=== PATIENT | female | born 1970 | race Two or more races ===

== ENCOUNTER 2025-04-15 19:32 | Inpatient (IN) | payer MEDICAID, OTHER ==
[~2025-04-15] VITALS: Ht 152.4 cm; Wt 52.3 kg
--- NOTE | 2025-04-15 20:01 | ED.PDOC ---
History of Present Illness HPI Comments 54-year-old female came to ER for dizziness. She does have hypertension and vertigo. Has been experiencing nausea and dizziness entire day. Feels like vertigo but never has been this worse. Patient has not taken any meds yet regarding her dizziness. Chief Complaint: Dizziness Time Seen by MD: 20:01 Reviewed Notes: Nurses Notes Allergies: Coded Allergies: No Known Drug Allergy (Verified Allergy, Unknown, 04/15/25) Information Source: Patient, Spouse Mode of Arrival: Ambulatory Past Medical History PAST MEDICAL HISTORY: HTN Past Medical History (Other): Vertigo Surgical History: Denies all surgeries PICK OUT HAND History: Denies all PICK OUT HAND Hx Family History Family History: Reviewed,noncontributory to illness Social History Smoker: Non-Smoker Alcohol: Denies ETOH Use Drugs: Denies Drug Use Lives In: Home Constitutional: denies: chills, diaphoresis, fatigue, fever, malaise, sweats, weakness, others EENTM: denies: blurred vision, double vision, ear bleeding, ear discharge, ear drainage, ear pain, ear ringing, eye pain, eye redness, hearing loss, mouth pain, mouth swelling, nasal discharge, nose bleeding, nose congestion, nose pain, photophobia, tearing, throat pain, throat swelling, voice changes, others Cardiovascular: denies: chest pain, dizzy spells, diaphoresis, Dyspnea on exertion, edema, irregular heart beat, left arm pain, lightheadedness, palpitations, PND, syncope, others Gastrointestinal: reports: nausea; denies: abdomen distended, abdominal pain, blood streaked bowels, constipated, diarrhea, dysphagia, difficulty swallowing, hematemesis, melena, poor appetite, poor fluid intake, rectal bleeding, rectal pain, vomiting, others Genitourinary: denies: abnormal vagina bleeding, burning, dyspareunia, dysuria, flank pain, frequency, hematuria, incontinence, pain, , vagina discharge, urgency, others Neurological: reports: dizziness; denies: fainting, headache, left sided numbness, left sided weakness, numbness, paresthesia, pre-existing deficit, right sided numbness, right sided weakness, seizure, speech problems, tingling, tremors, weakness, others Musculoskeletal: denies: back pain, gout, joint pain, joint swelling, muscle pain, muscle stiffness, neck pain, others Integumetry: denies: bruises, change in color, change in hair/nails, dryness, laceration, lesions, lumps, rash, wounds, others Allergic/Immunocompromised: denies: Difficulty Healing, Frequent Infections, Hives, Itching, others Hematologic/Lymphatic: denies: anemia, blood clots, easy bleeding, easy bruising, swollen glands, others Endocrine: denies: excessive hunger, excessive sweating, excessive thirst, excessive urination, flushing, intolerance to cold, intolerance to heat, unexplained weight gain, unexplained weight loss, others Psychiatric: denies: anxiety, bipolar disorder, depression, hopeless, panic disorder, schizophrenia, sleepless, suicidal, others Physical Exam General Appearance: No Apparent Distress, Normal HEENT: Normal ENT Inspection, Pharynx Normal, TMs Normal Neck: Full Range of Motion, Non-Tender, Normal, Normal Inspection Respiratory: Chest Non-Tender, Lungs Clear, No Accessory Muscle Use, No Respiratory Distress, Normal Breath Sounds Cardiovascular: No Edema, No JVD, No Murmur, No Gallop, Normal Peripheral Pulses, Regular Rate/Rhythm Breast Exam: Deferred Gastrointestinal: No Organomegaly, Non Tender, No Pulsatile Mass, Normal Bowel Sounds, Soft Genitalia: Deferred Pelvic: Deferred Rectal: Deferred Extremities: No calf tenderness, Normal capillary refill, Normal inspection, Normal range of motion, Non-tender, No pedal edema Musculoskeletal : Apperance: Normal Neurologic: Alert, market survey representative II-XII nml as Tested, No Motor Deficits, Normal Affect, Normal Mood, No Sensory Deficits Cerebellar Function: Normal Reflexes: Normal Skin: Dry, Normal Color, Warm Lymphatic: No Adenopathy Was a procedure done? Was a procedure done?: No Differential Dx Considerations may include: Anemia, electrolyte imbalance, dehydration, vertigo benign positional vertigo, central vertigo, intracranial mass, intracranial bleed, CVA, labyrinthitis, Meniere's disease X-Ray, Labs, Meds, VS Vital Signs Date Time Temp Pulse Resp B/P (MAP) Pulse Ox O2 Delivery O2 Flow Rate FiO2 04/15/25 22:58 97.8 99 20 176/101 (126) 95 97.8 04/15/25 19:37 97.6 81 16 161/109 94 97.6 Lab Test 04/16/25 00:24 Range/Units White Blood Count 14.0 H 4.4-10.8 10^3/uL Red Blood Count 5.07 4.0-5.20 10^6/uL Hemoglobin 15.8 12.2-16.2 g/dL Hematocrit 48.5 H 36.0-46.0 % Mean Corpuscular Volume 95.7 80.0-100.0 fL Mean Corpuscular Hemoglobin 31.2 28.0-32.0 pg Mean Corpuscular Hemoglobin Concent 32.6 32.0-36.0 g/dL Red Cell Distribution Width 13.4 11.8-14.3 % Platelet Count 243 140-450 10^3/uL Mean Platelet Volume 7.6 6.9-10.8 fL Neutrophils (%) (Auto) 95.0 H 37.0-80.0 % Lymphocytes (%) (Auto) 4.2 L 10.0-50.0 % Monocytes (%) (Auto) 0.8 0.0-12.0 % Eosinophils (%) (Auto) 0.0 0.0-7.0 % Basophils (%) (Auto) 0.0 0.0-2.0 % Neutrophils # (Auto) 13.3 H 1.6-8.6 10 ^3/uL Lymphocytes # (Auto) 0.6 0.4-5.4 10 ^3/uL Monocytes # (Auto) 0.1 0-1.3 10 ^3/uL Eosinophils # (Auto) 0 0-0.8 10 ^3/uL Basophils # (Auto) 0 0-0.2 10 ^3/uL Nucleated Red Blood Cells 0.0 % Sodium Level 141 136-145 mmol/L Potassium Level 3.8 3.5-5.1 mmol/L Chloride Level 103 98-107 mmol/L Carbon Dioxide Level 25 20-31 mmol/L Anion Gap 13 5-15 Blood Urea Nitrogen 14 9-23 mg/dL Creatinine 0.77 0.550-1.02 mg/dL Glomerular Filtration Rate Calc 93 >90 mL/min BUN/Creatinine Ratio 18.2 10.0-20.0 Serum Glucose 147 H 74-106 mg/dL Calcium Level 9.8 8.7-10.4 mg/dL Troponin I High Sensitivity < 3 L </=34 ng/L Current Medications Medications (Trade) Dose Ordered Sig/Edouard Route Start Time Stop Time Status Last Admin Meclizine HCl (Antivert Tablet) 25 mg ONCE ONCE PO 04/15/25 20:15 04/15/25 20:16 DC 04/15/25 23:00 Alprazolam (Xanax Tablet) 0.25 mg ONCE ONCE PO 04/15/25 20:15 04/15/25 20:16 DC 04/15/25 23:00 Ondansetron HCl (Zofran Po) 4 mg ONCE ONCE PO 04/15/25 20:15 04/15/25 20:16 DC 04/15/25 23:00 Sodium Chloride 500 ml @ 500 mls/hr Q1H ONCE IV 04/16/25 00:15 04/16/25 01:14 DC 04/16/25 01:33 Meclizine HCl (Antivert Tablet) 25 mg ONCE ONCE PO 04/16/25 00:15 04/16/25 00:16 DC 04/16/25 01:33 Ondansetron HCl (Zofran) 4 mg ONCE ONCE IV 04/16/25 00:15 04/16/25 00:16 DC 04/16/25 01:32 Lorazepam (Ativan Inj) 0.5 mg ONCE ONCE IV 04/16/25 00:15 04/16/25 00:16 DC 04/16/25 01:33 Metoclopramide HCl (Reglan Injection) 10 mg ONCE ONCE IV 04/16/25 02:45 04/16/25 02:50 DC 04/16/25 02:53 Time of 1ST Reevaluation: 19:55 Reevaluation 1ST: Unchanged Time of 2ND Reevaluation: 02:47 Reevaluation 2ND: Unchanged Patient Education/Counseling: Diagnosis, Treatment, Prognosis, Need For Follow Up Family Education/Counseling: Diagnosis, Treatment, Prognosis, Need For Follow Up, No Family Present Comments This is a patient who has a history of vertigo. Presents with the most severe episode. Examination shows horizontal nystagmus but no other neurologic findings. Cat scan blood work were unremarkable. She has had no arrhythmias. However, despite of multiple medications, patient's symptoms are unimproved. Patient does not have evidence of intracranial bleed, intracranial mass, CVA, or other central causing etiologies. Due to her intractable symptoms, she will be admitted for further treatments and evaluation. Due to concerns for patients condition deteriorating, the care required my highest level of attention and readiness to intervene. I assessed the patient, reviewed the medical records, ordered the appropriate tests and treatments, then reassessed for results and responsiveness. I communicated with medical personnel and consultants and formulated a plan of care. Total critical care time of 55 minutes excludes any procedures SEPSIS Sepsis Screen Date sepsis recognized/suspect: Apr 15, 2025 Time Sepsis recognized/suspect: 1941 Recent Procedure: No On Antibiotic Therapy: No Respiratory Rate >20: No Heart Rate >90: No Temp<36 C (96.8 F) or >38.3 C: No SBP <90 or MAP <65 mmHG: No New Acute Mental Status Change: No Is the patient on CPAP, BIPAP,: No Physician Orders Electrocardigram (04/16/25 00:02) Head Without Contrast (04/16/25 00:02) Vital Signs Date Time Temp Pulse Resp B/P (MAP) Pulse Ox O2 Delivery O2 Flow Rate FiO2 04/15/25 22:58 97.8 99 20 176/101 (126) 95 97.8 04/15/25 19:37 97.6 81 16 161/109 94 97.6 Laboratory Tests Test 04/16/25 00:24 White Blood Count 14.0 10^3/uL (4.4-10.8) H Medications Medications Dose Ordered Sig/Edouard Route Start Time Stop Time Status Last Admin Dose Admin Alprazolam 0.25 mg ONCE ONCE PO 04/15/25 20:15 04/15/25 20:16 DC 04/15/25 23:00 Lorazepam 0.5 mg ONCE ONCE IV 04/16/25 00:15 04/16/25 00:16 DC 04/16/25 01:33 Meclizine HCl 25 mg ONCE ONCE PO 04/15/25 20:15 04/15/25 20:16 DC 04/15/25 23:00 Meclizine HCl 25 mg ONCE ONCE PO 04/16/25 00:15 04/16/25 00:16 DC 04/16/25 01:33 Metoclopramide HCl 10 mg ONCE ONCE IV 04/16/25 02:45 04/16/25 02:50 DC 04/16/25 02:53 Ondansetron HCl 4 mg ONCE ONCE IV 04/16/25 00:15 04/16/25 00:16 DC 04/16/25 01:32 Ondansetron HCl 4 mg ONCE ONCE PO 04/15/25 20:15 04/15/25 20:16 DC 04/15/25 23:00 Sodium Chloride 500 ml @ 500 mls/hr Q1H ONCE IV 04/16/25 00:15 04/16/25 01:14 DC 04/16/25 01:33 Departure 1 Departure Time of Disposition: 02:49 Impression: Primary Impression: Vertigo Additional Impression: Intractable vomiting Disposition: ADMITTED INPATIENT Admit to: Med Surg Condition: Stable Discharged With: Self, Relative Critical Care Note Critical Care Time?: Yes (55 min-critical care time only) Critical care comment: Due to concerns for patients condition deteriorating, the care required my highest level of attention and readiness to intervene. I assessed the patient, reviewed the medical records, ordered the appropriate tests and treatments, then reassessed for results and responsiveness. I communicated with medical personnel and consultants and formulated a plan of care. Total critical care time excludes any procedures Stability Stability form required: No Heart Score Heart Score: Heart Score Response (Comments) Value History N/A 0 EKG N/A 0 Age N/A 0 Risk Factors N/A 0 Troponin N/A 0 Total 0 I personally scribed for NINA AVILEZ MD ([email or web address]) on 04/15/25 at 20:01. Electr onically submitted by Homer Stovall ([facility]). NINA AVILEZ MD Apr 15, 2025 20:01
[2025-04-15] MEDS: ALPRAZolam 0.25 MG TAB PO ONE (23:00)
[2025-04-15] MEDS: MECLIZINE HCL 25 MG TAB PO ONE (23:00)
[2025-04-15] MEDS: ONDANSETRON ODT 4 MG TAB PO ONE (23:00)
[2025-04-16 00:40] LABS: Hematocrit 48.5 % (36.0-46.0); Hemoglobin 15.8 g/dL (12.2-16.2); Mean Corpuscular Hemoglobin 31.2 pg (28.0-32.0); Mean Corpuscular Volume 95.7 fL (80.0-100.0); Nucleated Red Blood Cells % 0.0 %
[2025-04-16 00:50] LABS: Chloride 103 mmol/L (98-107); Potassium 3.8 mmol/L (3.5-5.1); Sodium 141 mmol/L (136-145)
[2025-04-16 00:51] LABS: Anion Gap 13 (5-15); Calcium 9.8 mg/dL (8.7-10.4); Carbon Dioxide 25 mmol/L (20-31)
[2025-04-16 00:56] LABS: BUN/Creatinine Ratio 18.2 (10.0-20.0); Blood Urea Nitrogen 14 mg/dL (9-23)
[2025-04-16 00:58] LABS: Glucose 147 mg/dL (74-106)
--- NOTE | 2025-04-16 01:14 | DVH ---
EXAM: CT HEAD WITHOUT CONTRAST INDICATION: intracatable vertigo TECHNIQUE: CT of the head without intravenous contrast. Radiation Dose : 1. Head: CT Dose: CTDI volume is 51.12 mGy. Dose-length product is 905.39 mGy*cm The dose indicators for CT are the volume Computed Tomography (CT) Dose Index (CTDIvol) and the Dose Length Product (DLP), and are measured in units of mGy and mGy-cm, respectively. These indicators are not patient dose, but values generated from the CT scanner acquisition factors. The report includes radiation exposure data for exposures received during this examination. COMPARISON: None FINDINGS: There is no evidence of acute intracranial hemorrhage, extra-axial collection, mass effect, midline shift, herniation or hydrocephalus. The ventricles, sulci and cisterns are age appropriate. The carrasco-white differentiation is intact. Patchy periventricular and subcortical white matter hypoattenuation is nonspecific but may be related to small vessel ischemic disease. The visualized paranasal sinuses and mastoid air cells are clear. The surrounding soft tissues and osseous structures are unremarkable. IMPRESSION: 1. No acute intracranial abnormality. Radiation optimization: All CT scans at this facility use at least one of these dose optimization techniques: automated exposure control mA and/or kV adjustment per patient size (includes targeted exams where dose is matched to clinical indication) or iterative reconstruction.
[2025-04-16] MEDS: ONDANSETRON HCL 4 MG/2 ML VIAL IV ONE (01:32)
[2025-04-16] MEDS: SODIUM CHLORIDE 0.9% 500 ML IV ONE (01:33)
[2025-04-16] MEDS: MECLIZINE HCL 25 MG TAB PO ONE (01:33)
[2025-04-16] MEDS: LORazepam 2MG/ML-1ML VIAL IV ONE (01:33)
[2025-04-16] MEDS: METOCLOPRAMIDE HCL 5MG/ml INJ 2ml VIAL IV ONE (02:53)
[2025-04-16] MEDS: ACETAMINOPHEN IV 1000 MG/100ML (10MG/ML) IV ONE (03:00)
[2025-04-16] MEDS ORDERED: NITROGLYCERIN 0.4 MG SL TAB SL PRN (04:45)
[2025-04-16] MEDS ORDERED: MORPHINE SULFATE 4 MG/ML SYR/VIAL IV PRN (05:00)
--- NOTE | 2025-04-16 05:00 | DVHHPRES ---
History of Present Illness Resident Creating Document: KENNY VANG RESIDENT History of Present Illness 54-year-old female past medical HTN, migraine came to ER with a complaint of dizziness and vertigo associated with nausea and vomiting. Patient having vomiting for 2 days and more than 5 episode yesterday does not contain any blood in vomitus. Since today morning, her symptoms worsen associated with headache which is Veress 4-7/10 intensity, aggravated on pressure and no relieving factor. At home, (Freeman Wilder) measure blood pressure at home and given 5 mg lisinopril tablet. Patient also complained of vertigo, like spinning room around her head associated with bilateral mild tinnitus. Denies any fever, chest pain, dysuria, abdominal pain, photophobia, neck rigidity any other acute distress. Past medical history: As above Past surgical history: Nothing contributory Family history: Nothing contributory Personal history: Denies any smoking, illicit drug or EtOH use PCP: Dr. Arroyo Home medication: Lisinopril. Review of Systems Constitutional: Yes: Malaise; No: Fever, Chills, Sweats, Weakness, Other Eyes: No: Pain, Vision change, Conjunctivae inflammation, Eyelid inflammation, Other, Redness ENT: Other (Tinnitus bilateral ear); No: Ear pain, Ear discharge, Nose pain, Nose discharge, Nose congestion, Mouth pain, Mouth swelling, Throat pain, Throat swelling Respiratory: No: Cough, Dry, Shortness of breath, SOB with excertion, Wheezing, Hemoptysis, Pleuritic Pain, Sputum, Wheezing, Other Cardiovascular: No: Chest Pain, Palpitations, Orthopnea, Paroxysmal Noc. Dyspnea, Edema, Lt Headedness, Other Gastrointestinal: Nausea, Vomiting; No: Abdominal Pain, Diarrhea, Constipation, Melena, Hematochezia, Other Genitourinary: No Dysuria, No Frequency, No Incontinence, No Hematuria, No Retention, No Other Musculoskeletal: No: other, neck pain, shoulder pain, arm pain, back pain, hand pain, leg pain, foot pain Skin: No: Rash, Lesions, Jaundice, Bruising, Other Neurological: Other (Vertigo); No: Weakness, Numbness, Incoordination, Change in speech, Confusion, Seizures Allergies: Coded Allergies: No Known Drug Allergy (Verified Allergy, Unknown, 04/15/25) Exam Vital Signs Vital Signs Date Time Temp Pulse Resp B/P (MAP) Pulse Ox O2 Delivery O2 Flow Rate FiO2 04/15/25 22:58 97.8 99 20 176/101 (126) 95 97.8 General Appearance: Alert, Oriented X3, moderate distress HEENT: Atraumatic, PERRLA, EOMI, Mucous membr. moist/pink Respiratory: Clear to auscultation, Normal air movement Cardiovascular: Regular rate, Normal S1, Normal S2, No murmurs Abdominal: Normal bowel sounds, Soft, No tenderness, No hepatospenomegaly Extremities: No cyanosis, No edema, Normal pulses Skin: No rashes Neuro: Strength at 5/5 X4 ext, Sensation intact, Cranial nerves 3-12 NL, Other (Gait disturbance due to vertigo) Labs/Xrays Labs Test 04/16/25 00:24 Range/Units White Blood Count 14.0 H 4.4-10.8 10^3/uL Red Blood Count 5.07 4.0-5.20 10^6/uL Hemoglobin 15.8 12.2-16.2 g/dL Hematocrit 48.5 H 36.0-46.0 % Mean Corpuscular Volume 95.7 80.0-100.0 fL Mean Corpuscular Hemoglobin 31.2 28.0-32.0 pg Mean Corpuscular Hemoglobin Concent 32.6 32.0-36.0 g/dL Red Cell Distribution Width 13.4 11.8-14.3 % Platelet Count 243 140-450 10^3/uL Mean Platelet Volume 7.6 6.9-10.8 fL Neutrophils (%) (Auto) 95.0 H 37.0-80.0 % Lymphocytes (%) (Auto) 4.2 L 10.0-50.0 % Monocytes (%) (Auto) 0.8 0.0-12.0 % Eosinophils (%) (Auto) 0.0 0.0-7.0 % Basophils (%) (Auto) 0.0 0.0-2.0 % Neutrophils # (Auto) 13.3 H 1.6-8.6 10 ^3/uL Lymphocytes # (Auto) 0.6 0.4-5.4 10 ^3/uL Monocytes # (Auto) 0.1 0-1.3 10 ^3/uL Eosinophils # (Auto) 0 0-0.8 10 ^3/uL Basophils # (Auto) 0 0-0.2 10 ^3/uL Nucleated Red Blood Cells 0.0 % Sodium Level 141 136-145 mmol/L Potassium Level 3.8 3.5-5.1 mmol/L Chloride Level 103 98-107 mmol/L Carbon Dioxide Level 25 20-31 mmol/L Anion Gap 13 5-15 Blood Urea Nitrogen 14 9-23 mg/dL Creatinine 0.77 0.550-1.02 mg/dL Glomerular Filtration Rate Calc 93 >90 mL/min BUN/Creatinine Ratio 18.2 10.0-20.0 Serum Glucose 147 H 74-106 mg/dL Calcium Level 9.8 8.7-10.4 mg/dL Troponin I High Sensitivity < 3 L </=34 ng/L SEPSIS Sepsis Screen Date sepsis recognized/suspect: Apr 15, 2025 Time Sepsis recognized/suspect: 2257 Recent Procedure: No On Antibiotic Therapy: No Respiratory Rate >20: No Heart Rate >90: Yes Temp<36 C (96.8 F) or >38.3 C: No SBP <90 or MAP <65 mmHG: No New Acute Mental Status Change: No Is the patient on CPAP, BIPAP,: No Physician Orders Electrocardigram (04/16/25 00:02) Head Without Contrast (04/16/25 00:02) Admit (04/16/25 04:36) Code Status (04/16/25 04:36) Ondansetron Hcl (Zofran) (04/16/25 04:45) Cardiac Diet-2gna,Lofat,Lochol (04/16/25 Breakfast) Echo 2d Mode Cardiac Dop (04/16/25 04:36) Enoxaparin Sodium (Lovenox) (04/16/25 10:00) Nitroglycerin Sublingual (Ntrostat Subli (04/16/25 04:45) Morphine Sulfate Injection (04/16/25 04:45) Oxygen By Nasal Cannula (04/16/25 04:36) Stat Ekg For Chest Pain (04/16/25 04:36) Notify Md Of Changes From Base (04/16/25 04:36) Weight Control Lecturer For 24 Hours (04/16/25 04:36) Emergency Dysrhythmia Protocol (04/16/25 04:36) Rhythm Strips Once Every Shift (04/16/25 04:36) Chest Xray 1 View (04/16/25 04:36) Urinalysis (04/16/25 04:36) Drug Screen (04/16/25 04:36) Test, Urine (04/16/25 04:36) Meclizine Tablet (Antivert Tablet) (04/16/25 06:00) Vital Signs Date Time Temp Pulse Resp B/P (MAP) Pulse Ox O2 Delivery O2 Flow Rate FiO2 04/15/25 22:58 97.8 99 20 176/101 (126) 95 97.8 Laboratory Tests Test 04/16/25 00:24 White Blood Count 14.0 10^3/uL (4.4-10.8) H Medications Medications Dose Ordered Sig/Edouard Route Start Time Stop Time Status Last Admin Dose Admin Alprazolam 0.25 mg ONCE ONCE PO 04/15/25 20:15 04/15/25 20:16 AR 04/15/25 23:00 0.25 MG Lorazepam 0.5 mg ONCE ONCE IV 04/16/25 00:15 04/16/25 00:16 AR 04/16/25 01:33 0.5 MG Meclizine HCl 25 mg ONCE ONCE PO 04/15/25 20:15 04/15/25 20:16 AR 04/15/25 23:00 25 MG Meclizine HCl 25 mg ONCE ONCE PO 04/16/25 00:15 04/16/25 00:16 AR 04/16/25 01:33 25 MG Metoclopramide HCl 10 mg ONCE ONCE IV 04/16/25 02:45 04/16/25 02:50 AR 04/16/25 02:53 10 MG Ondansetron HCl 4 mg ONCE ONCE IV 04/16/25 00:15 04/16/25 00:16 AR 04/16/25 01:32 4 MG Ondansetron HCl 4 mg ONCE ONCE PO 04/15/25 20:15 04/15/25 20:16 AR 04/15/25 23:00 4 MG Sodium Chloride 500 ml @ 500 mls/hr Q1H ONCE IV 04/16/25 00:15 04/16/25 01:14 AR 04/16/25 01:33 500 MLS/HR Assessment/Plan Assessment/Plan Hypertensive urgency Hypertensive kidney disease stage I to IV Patient came nausea, headache, dizziness vertigo BP 161/109 and repeat BP 176/101 In ER patient received meclizine, alprazolam, NSS, ondansetron, lorazepam, metoclopramide, acetaminophen. Lab shows leukocytosis with left shift Head CT without contrast: No acute intracranial abnormality, hemorrhage. EKG Troponin: <3 Echocardiogram Monitor labs and vital UDS Telemetry Benign positional vertigo History of migraine Meniere's disease Ketorolac injection 15 mg stat Ondansetron Meclizine Acetaminophen Diet: Cardiac GI prophylaxis: Pantoprazole DVT prophylaxis: Lovenox Goals of care discussions. More than 29 minute spent with patient. Full code status. Case discussed with Dr. Rosado. Plan discussed with: Patient, Spouse (Wendy Gamboa) My Orders Orders - KENNY VANG RESIDENT Procedure Category Date Status Time Admit ADMIT 04/16/25 Transmitted 04:36 Code Status CODE 04/16/25 Transmitted 04:36 Ondansetron Hcl PHA 04/16/25 Transmitted (Zofran) 04:45 Cardiac DIET 04/16/25 Transmitted Diet-2gna,Lofat,Lochol Breakfast Echo 2d Mode Cardiac US 04/16/25 Transmitted DOP 04:36 Enoxaparin Sodium PHA 04/16/25 Transmitted (Lovenox) 10:00 Nitroglycerin PHA 04/16/25 Transmitted Sublingual (Ntrostat 04:45 Morphine Sulfate PHA 04/16/25 Transmitted Injection 04:45 Oxygen By Nasal RT 04/16/25 Transmitted Cannula 04:36 Stat Ekg For Chest HEMAL 04/16/25 Transmitted Pain 04:36 Notify Md Of Changes [facility] 04/16/25 Transmitted From Base 04:36 Weight Control Lecturer For HEMAL 04/16/25 Transmitted 24 Hours 04:36 Emergency Dysrhythmia HEMAL 04/16/25 Transmitted Protocol 04:36 Rhythm Strips Once HEMAL 04/16/25 Transmitted Every Shift 04:36 Chest Xray 1 View XY 04/16/25 Transmitted 04:36 Urinalysis LAB 04/16/25 Transmitted 04:36 Drug Screen LAB 04/16/25 Transmitted 04:36 Test, Urine LAB 04/16/25 Transmitted 04:36 Meclizine Tablet PHA 04/16/25 Transmitted (Antivert Tablet) 06:00 Visit Coding STANDARD RES Billing Provider: TRAV ROSADO MD Date of Service if different f: Apr 16, 2025 Common Visit Codes: 70278-DSXUXVB INP/OBS CARE (HIGH) Secondary Visit Codes: 20880-[id number] CARE PLAN 30 MINUTES KENNY VANG RESIDENT Apr 16, 2025 05:00
[2025-04-16] MEDS: KETOROLAC TROMETH 30 MG/ML 1ML VIAL IV ONE (05:30)
[2025-04-16 05:36] LABS: Triglycerides 69 mg/dL (< 150)
[2025-04-16 05:39] LABS: Cholesterol 224 mg/dL (< 200); HDL Cholesterol 83 mg/dL (40-59)
[2025-04-16 05:53] VITALS: PULSE 78; RESP 18; O2SAT 97
[2025-04-16] MEDS: PANTOPRAZOLE 40 MG TAB PO SCH (06:07)
[2025-04-16] MEDS: MECLIZINE HCL 25 MG TAB PO SCH (06:07)
--- NOTE | 2025-04-16 06:29 | DVH ---
CHEST RADIOGRAPH Indication: Rule out cardiopulmonary DX Technique: Single frontal view of the chest was obtained COMPARISON: None FINDINGS: Lines and Tubes: None Lungs: Clear Pleura: No effusion. No pneumothorax. Cardiomediastinal contours: Unremarkable Bones: Unremarkable IMPRESSION: 1. No acute disease.
[2025-04-16 07:22] VITALS: PULSE 80; RESP 15; O2SAT 98
[2025-04-16] MEDS: ENOXAPARIN SOD 40 MG/0.4 ML SYRINGE SC SCH (11:13)
[2025-04-16 13:02] VITALS: BP 153/92; PULSE 76; RESP 18; TEMP 98.6; O2SAT 99
--- NOTE | 2025-04-16 13:30 | DVHSR ---
APPROVED REPORT EXAM: Two-dimensional and M-mode echocardiogram with Doppler and color Doppler. Blood Pressure: 144/81 mmHg INDICATION Hypertensive emergency to rule out cardiac abnormalities RISK FACTORS Height: 5', Weight: 130 DIMENSIONS LVDd 3.9 (3.8-5.7cm) LA (2D) 3.7 (1.9-4.0cm) Aortic Root 2.9 (2.0-3.7cm) LVDs 2.8 (2.5-4.0cm) LA (MM) (1.9-4.0cm) Aortic Cusp Exc 1.7 (1.5-2.0cm) EF (%) 55.0 (55-70%) Rt. Atrium 4.0 (1.9-4.0cm) Asc. Aorta 3.1 cm IVSd 1.0 (0.7-1.1cm) RV (D) (1.8-2.4cm) PWd 1.0 (0.7-1.1cm) Mitral Valve Mitral Mitral Stenosis E wave 0.90m/s MV Mean GR. mmHg A wave 0.70m/s MV Peak GR. mmHg E/A ratio 1.3 2D MVA cm2 Aortic Valve Aortic Valve Aortic Stenosis V1 1.00m/s AO Mean GR. 3mmHg V2 1.20m/s AO Peak GR. 6mmHg LVOT Diameter 2.0 (1.8-2.4cm) Doppler ROMAN 2.62cm2 Tricuspid Valve TR Velocity 1.90m/s RVSP 20mmHg Conclusion 1) Normal right and left ventricle systolic function with estimated ejection fraction of 55%. Normal LV wall motion. Normal LV diastolic function 2)Mild tricuspid and mitral regurgitation
[2025-04-16 17:10] VITALS: BP 155/88; PULSE 75; RESP 18; TEMP 98.8; O2SAT 99
[2025-04-16 20:00] VITALS: PULSE 69; RESP 16; O2SAT 97
[2025-04-16] MEDS: hydrALAZINE HCL 20 MG/ML VL IV PRN (20:59)
[2025-04-16 21:00] VITALS: BP 166/94; PULSE 74; RESP 12; TEMP 98; O2SAT 99
[2025-04-16] MEDS: ONDANSETRON HCL 4 MG/2 ML VIAL IV PRN (21:00)
[2025-04-16] MEDS: IOHEXOL 300 MG/ML 100ML BOTTLE IJ ONE (21:06)
--- NOTE | 2025-04-16 21:27 | BSKYNEURO ---
[facility] Note # Demographics Consult Type: Acute Stroke Level 1 (0-4.5 hrs) Patient Location: Inpatient First Name: Wendy Last Name: Bee Date of : 1970 Age: 54 Gender: Female Facility: [facility] Time of Initial Page (): 04/16/2025 20:38 First Contact with Site (): 04/16/2025 20:41 # HPI Chief Complaint: - weakness (focal) - numbness History: 54 yo F was admitted on 04/15 for vertigo and headache. reported she developed a migraine on and started vertigo with room spinning sensation on Friday. It's associated nausea, vomiting and photophobia. This pm, she developed R arm weakness and R facial/arm numbness. These symptoms are common with her prior migraine episodes. Last Known Normal: - I have collected independent history specific to time last normal or last known well. We have collaborated with the provider and at this time, we have the most current timeline with the information that is available. 3 pm # Scores Time of exam and NIHSS (): 04/16/2025 20:41 Level of Consciousness 1a: [0] = Alert; keenly responsive LOC Questions 1b: [0] = Answers both questions correctly LOC Commands 1c: [0] = Performs both tasks correctly Best Gaze 2: [0] = Normal Visual 3: [0] = No visual loss Facial Palsy 4: [0] = Normal symmetrical movements Motor Arm Left 5a: [0] = No drift Motor Arm Right 5b: [1] = Drift Motor Leg Left 6a: [0] = No drift Motor Leg Right 6b: [0] = No drift Limb Ataxia 7: [0] = Absent Sensory 8: [1] = [id number] sensory loss Best Language 9: [0] = No aphasia Dysarthria 10: [0] = Normal Extinction and Inattention 11: [0] = No abnormality NIHSS Total: 2 # ROS Additional: - complete review of systems otherwise negative # PMH-FH-SH Past Medical History: - hypertension - migraine # Assessment Impression: - Migraine (Complex) Differential Diagnosis: - Ischemic Stroke (Acute) # Plan Thrombolytic/Intervention: NOT IV Thrombolysis or IA Intervention candidate Thrombolytic Exclusion: > 4.5 hours Intraarterial Exclusion: - clinical exam not consistent with presence of large vessel occlusion (LVO), can reconsider if LVO found on vascular imaging Imaging: (urgency: STAT): - CT Head without contrast AND call back with results if abnormal - CT Angiogram Head and CT Angiogram Neck AND call back with results if abnormal Medication: - migraine cocktail: Toradol 30 mg IV + Benadryl 25 mg IV + antiemetic IV - Meclizine 25 mg TID - Valium 5 mg TID prn Other: - If patient has any neurological deterioration please call me back immediately - I have discussed my recommendations with the referring provider - If symptoms persist, obtain MRI brain w/o # Logistics Attestation of consult completion: The patient is located at: [facility]. Facility staff participated in the visit. I performed this telemedicine visit from my offsite office utilizing interactive 2 way audio and visual telecommunication technology at the request of the onsite inpatient provider. Total time spent in telemedicine encounter: I spent 21 minutes reviewing clinical data and/or imaging, obtaining history, examining the patient, communicating with the onsite care team, and in preparation of this report. # Demographics First Name: Wendy Last Name: Bee Facility: [facility] Electronically signed at 04/16/2025 21:26 ([place] Time) by David Casanova MD Yes DAVID CASANOVA MD Apr 16, 2025 21:27
--- NOTE | 2025-04-16 21:44 | DVH ---
EXAM: CT HEAD CONTRAST ONLY INDICATION: r/o cva TECHNIQUE: CT images of the head were obtained with administration of IV contrast. CT scans at this facility use dose modulation, iterative reconstruction, and/or weight based dosing when appropriate to reduce radiation dose to as low as reasonably achievable. COMPARISON: CT HEAD WITHOUT CONTRAST on DOS: 04/16/25 FINDINGS: PARENCHYMA: No acute hemorrhage. There is no mass effect, midline shift, or herniation. There is preservation of the carrasco white differentiation. VENTRICLES: No hydrocephalus. EXTRA-AXIAL SPACES: No extra-axial fluid collections. OTHER: The bony structures are intact. Visualized portions of the paranasal sinuses and mastoid air cells are clear. IMPRESSION: 1. No CT evidence of an acute intracranial abnormality.
[2025-04-17] VITALS (8 sets, daily range): BP systolic 138–167; BP diastolic 79–100; PULSE 77–117; RESP 16–18; TEMP 98.4–99.2; O2SAT 96–98
[2025-04-17] MEDS: ACETAMINOPHEN 325 MG TAB PO PRN (01:44)
[2025-04-17] MEDS: METOPROLOL TARTRATE 1MG/1ML-5ML VIAL IV ONE (05:45)
[2025-04-17] MEDS: KETOROLAC TROMETH 30 MG/ML 1ML VIAL IV ONE (05:45)
[2025-04-17 17:08] LABS: Urine Protein, UAD TRACE (Negative)
--- NOTE | 2025-04-17 17:42 | DVHPN2 ---
Subjective Overnight events noted. Patient has had a right-sided facial numbness as well as right upper extremity weakness last night eventually code stroke was called tele neuro was consulted who diagonal with the patient as complex migraine. Patient is still complaining of headache dizziness and vertigo can not keep anything down. Changes from previous H/P or p: No Changes Eyes: No Pain, No Vision change, No Conjunctivae inflammation, No Eyelid inflammation, No Other, No Redness ENT: No Ear pain, No Ear discharge, No Nose pain, No Nose discharge, No Nose congestion, No Mouth pain, No Mouth swelling, No Throat pain, No Throat swelling; Other (Tinnitus bilateral ear) Cardiovascular: No Chest Pain, No Palpitations, No Orthopnea, No Paroxysmal Noc. Dyspnea, No Edema, No Lt Headedness, No Other Respiratory: No Cough, No Dry, No Shortness of breath, No SOB with excertion, No Wheezing, No Hemoptysis, No Pleuritic Pain, No Sputum, No Other Gastrointestinal: Nausea, Vomiting; No Abdominal Pain, No Diarrhea, No Constipation, No Melena, No Hematochezia, No Other Genitourinary: No Dysuria, No Frequency, No Incontinence, No Hematuria, No Retention, No Other Musculoskeletal: No other, No neck pain, No shoulder pain, No arm pain, No back pain, No hand pain, No leg pain, No foot pain Skin: No Rash, No Lesions, No Jaundice, No Bruising, No Other Objective Vitals Vital Signs Date Time Temp Pulse Resp B/P (MAP) Pulse Ox O2 Delivery O2 Flow Rate FiO2 04/17/25 16:31 158/92 04/17/25 12:46 98.6 102 16 96 98.6 04/17/25 08:05 Room Air* 0 21 Intake/Output Intake and Output 04/17/25 07:00 Intake Total 360 ml Balance 360 ml Intake Oral 360 ml # Voids 3 Exam HEENT pupils are reactive Neck is supple CV is S1-S2 regular rate and rhythm Respiratory diminished breath sounds bases GI positive bowel sound Extremity no edema 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 Medications Current Medications Medications Dose Ordered Sig/Edouard Route Start Time Stop Time Status Last Admin Dose Admin Ondansetron HCl 4 mg Q4HP PRN IV 04/16/25 04:45 04/17/25 12:40 4 MG Enoxaparin Sodium 40 mg DAILY SC 04/16/25 10:00 04/17/25 10:04 40 MG Nitroglycerin 0.4 mg Q5MINP PRN SL 04/16/25 04:45 Morphine Sulfate 2 mg Q30M PRN IV 04/16/25 05:00 Meclizine HCl 25 mg Q8HR PO 04/16/25 06:00 04/16/25 06:07 25 MG Acetaminophen 650 mg Q6HP PRN PO 04/16/25 05:30 04/17/25 01:44 650 MG Pantoprazole Sodium 40 mg DAILY@0600 PO 04/16/25 06:00 04/16/25 06:07 40 MG Hydralazine HCl 10 mg Q4HPRN PRN IV 04/16/25 18:30 04/17/25 16:31 10 MG Laboratory Results Laboratory Tests 04/16/25 00:24 Urinalysis Test 04/17/25 16:38 Urine Color Yellow (Yellow) Urine Clarity Clear (Clear) Urine pH 6.0 (5.0-9.0) Urine Specific [place] 1.036 (1.001-1.035) Urine Protein Trace (Negative) H Urine Ketones 3+ (Negative) H Urine Blood Trace /uL (Negative) H Urine Nitrite Negative (Negative) Urine Bilirubin Negative (Negative) Urine Urobilinogen Normal mg/dL (Negative) Urine Leukocyte Esterase Negative /uL (Negative) Urine RBC 4 /hpf (0 - 4) Urine Microscopic WBC 3 /HPF (0-5) Urine Squamous Epithelial Cells Few /hpf (<5) Urine Bacteria None seen /hpf (None Seen) Urine Mucus Few (None Seen) Urine Glucose Normal mg/dL (Normal) Urine Test Negative (Negative) Assessment/Plan Assessment/Plan 54-year-old female with a known history of hypertension, chronic migraine presented to the hospital with a nausea and vomiting dizziness and vertigo found to have 1. Complex migraine 2. Nausea and vomiting suspected secondary to 1. 3. Stroke-like symptoms last night with a right-sided facial numbness and right upper extremity weakness, tele neuro was called for code stroke, MRI brain is pending. -MRI brain, CT angio head and neck to rule out significant stenosis, diet as tolerated. Plan discussed with: Patient, Spouse My Orders Orders - ROSIE JAIME MD Procedure Category Date Status Time Hydralazine Injection PHA 12/6/25 In Process (Apresoline Inject 18:30 Brain Head Wo Contrast MRI 04/17/25 Logged 14:43 *Consult Dr. Olivia CONS 04/17/25 Transmitted P[place]a 15:01 Speech Pathologist HEMAL 04/17/25 In Process Eval: Felix 15:01 Problem List: (1) Vertigo (2) Intractable vomiting Date of Service: Apr 17, 2025 Billing Provider: ROSIE JAIME MD Common Visit Codes: [id number] INP/OBS CARE(HIGH) ROSIE JAIME MD Apr 17, 2025 17:41
[2025-04-17 18:05] LABS: Amphetamine Screen, Urine Neg (NEGATIVE); Barbiturate Scree,Urine Neg (NEGATIVE); Benzodiazephine Screen, Urine Neg (NEGATIVE); Cannabinoid Screen, Urine Neg (NEGATIVE); Cocaine Screen, Urine Neg (NEGATIVE); Opiate Scree,Urine Neg (NEGATIVE); Phencyclidine Screen, Urine Neg (NEGATIVE)
--- NOTE | 2025-04-17 21:07 | DVHINCON2 ---
Date of service: Apr 17, 2025 History of Present Illness Per HPI - 54-year-old female past medical HTN, migraine came to ER with a complaint of dizziness and vertigo associated with nausea and vomiting. Patient having vomiting for 2 days and more than 5 episode yesterday does not contain any blood in vomitus. Since today morning, her symptoms worsen associated with headache which is Veress 4-7/10 intensity, aggravated on pressure and no relieving factor. At home, (Freeman Wilder) measure blood pressure at home and given 5 mg lisinopril tablet. Patient also complained of vertigo, like spinning room around her head associated with bilateral mild tinnitus. Denies any fever, chest pain, dysuria, abdominal pain, photophobia, neck rigidity any other acute distress. GI team consulted for N/V, pt relates to headaches. Has sore throat, causing difficulty swallowing. No prior EGD per pt. Denies constipation/diarrhea Past Medical History Reviewed Past Surgical History Reviewed Family History: Patient reports no known family medical history. Allergies: Coded Allergies: No Known Drug Allergy (Verified Allergy, Unknown, 04/15/25) Home Meds No Active Prescriptions or Reported Meds Review of Systems 14 point ROS negative except mentioned above Vital Signs Vital Signs Date Time Temp Pulse Resp B/P (MAP) Pulse Ox O2 Delivery O2 Flow Rate FiO2 04/17/25 17:00 98.9 92 18 158/92 (114) 97 98.9 04/17/25 08:05 Room Air* 0 21 Physical Exam GE : in mild distress CVS: S1S2+ Lungs: clear Abdomen: soft, nontender, nondistended, BS+ Labs/Diagnostic Data Labs Test 04/17/25 16:38 04/16/25 00:24 Range/Units Urine Color Yellow Yellow Urine Clarity Clear Clear Urine pH 6.0 5.0-9.0 Urine Specific [place] 1.036 H 1.001-1.035 Urine Protein Trace H Negative Urine Ketones 3+ H Negative Urine Blood Trace H Negative /uL Urine Nitrite Negative Negative Urine Bilirubin Negative Negative Urine Urobilinogen Normal Negative mg/dL Urine Leukocyte Esterase Negative Negative /uL Urine RBC 4 0 - 4 /hpf Urine Microscopic WBC 3 0-5 /HPF Urine Squamous Epithelial Cells Few <5 /hpf Urine Bacteria None seen None Seen /hpf Urine Mucus Few None Seen Urine Glucose Normal Normal mg/dL Urine Test Negative Negative Urine Opiates Screen Neg NEGATIVE Urine Fentanyl Screen Neg NEGATIVE Urine Barbiturates Screen Neg NEGATIVE Urine Phencyclidine Screen Neg NEGATIVE Urine Amphetamines Screen Neg NEGATIVE Urine Benzodiazepines Screen Neg NEGATIVE Urine Cocaine Screen Neg NEGATIVE Urine Cannabinoids Screen Neg NEGATIVE White Blood Count 14.0 H 4.4-10.8 10^3/uL Red Blood Count 5.07 4.0-5.20 10^6/uL Hemoglobin 15.8 12.2-16.2 g/dL Hematocrit 48.5 H 36.0-46.0 % Mean Corpuscular Volume 95.7 80.0-100.0 fL Mean Corpuscular Hemoglobin 31.2 28.0-32.0 pg Mean Corpuscular Hemoglobin Concent 32.6 32.0-36.0 g/dL Red Cell Distribution Width 13.4 11.8-14.3 % Platelet Count 243 140-450 10^3/uL Mean Platelet Volume 7.6 6.9-10.8 fL Neutrophils (%) (Auto) 95.0 H 37.0-80.0 % Lymphocytes (%) (Auto) 4.2 L 10.0-50.0 % Monocytes (%) (Auto) 0.8 0.0-12.0 % Eosinophils (%) (Auto) 0.0 0.0-7.0 % Basophils (%) (Auto) 0.0 0.0-2.0 % Neutrophils # (Auto) 13.3 H 1.6-8.6 10 ^3/uL Lymphocytes # (Auto) 0.6 0.4-5.4 10 ^3/uL Monocytes # (Auto) 0.1 0-1.3 10 ^3/uL Eosinophils # (Auto) 0 0-0.8 10 ^3/uL Basophils # (Auto) 0 0-0.2 10 ^3/uL Nucleated Red Blood Cells 0.0 % Sodium Level 141 136-145 mmol/L Potassium Level 3.8 3.5-5.1 mmol/L Chloride Level 103 98-107 mmol/L Carbon Dioxide Level 25 20-31 mmol/L Anion Gap 13 5-15 Blood Urea Nitrogen 14 9-23 mg/dL Creatinine 0.77 0.550-1.02 mg/dL Glomerular Filtration Rate Calc 93 >90 mL/min BUN/Creatinine Ratio 18.2 10.0-20.0 Serum Glucose 147 H 74-106 mg/dL Hemoglobin A1c 5.0 <5.7 % A1C Calcium Level 9.8 8.7-10.4 mg/dL Troponin I High Sensitivity < 3 L </=34 ng/L Triglycerides Level 69 < 150 mg/dL Cholesterol Level 224 H < 200 mg/dL LDL Cholesterol 129 H < 100 mg/dL HDL Cholesterol 83 H 40-59 mg/dL Vitamin B12 Level 472 211-911 pg/mL Vitamin D 25-Hydroxy 35.5 30.0-100 ng/mL Thyroid Stimulating Hormone (TSH) 0.10 L 0.55-4.78 uIU/mL Assessment #Nausea/vomiting 2/2 migraines and HTN urgency #Sore throat, r/o pharyngitis #Dysphagia likely 2/2 to the above -Adequate BP control. Antiemetics prn -Check esophagogram, only if dysphagia persists even after pharyngitis improvement -Diet as tolerated Thank you for the consult Plan discussed with: Patient, Other TALYA TEAGUE MD Apr 17, 2025 21:07
[2025-04-18] VITALS (8 sets, daily range): BP systolic 116–165; BP diastolic 56–93; PULSE 69–127; RESP 14–19; TEMP 97.7–99.4; O2SAT 95–98
[2025-04-18] MEDS: KETOROLAC TROMETH 30 MG/ML 1ML VIAL IV ONE ×2 (02:02→17:54)
--- NOTE | 2025-04-18 08:52 | DVH ---
CLINICAL HISTORY: Right sided Numbness TECHNIQUE: Routine multiplanar imaging of the brain was performed without gadolinium contrast. 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 There are no significant chronic small vessel ischemic foci. There is no evidence for mass, mass effect, or extra-axial fluid collection. There is no hydrocephalus or midline shift. The cerebral sulci and subarachnoid cisterns are not effaced. The imaged paranasal sinuses are clear. The globes are intact. The midline structures, including the corpus callosum, are unremarkable. The intracranial flow voids are maintained. 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
[2025-04-18 10:37] LABS: Hepatitis A Total Antibody Positive (Negative); Hepatitis B Surface Antigen Negative (Negative); Hepatitis C Antibody Negative (Negative)
--- NOTE | 2025-04-18 11:58 | DVH ---
CLINICAL HISTORY: CT angio head and neck to rule out any significant stenosis TECHNIQUE: CT angiogram of the head and neck was performed without and with intravenous contrast. 3D MIP reconstructed images were created and archived on the PACS system. This exam was performed according to our departmental dose optimization program. Up-to-date CT equipment and radiation dose reduction techniques are utilized as appropriate. CTDI 22 DLP 856 COMPARISON: MRI BRAIN HEAD WO CONTRAST on DOS: 04/18/25, CT HEAD CONTRAST ONLY on DOS: 04/16/25, CT HEAD WITHOUT CONTRAST on DOS: 04/16/25 FINDINGS: CTA NECK: The common carotid, internal carotid, and vertebral arteries are patent with no evidence for high grade narrowing, occlusion, and dissection. There is no significant narrowing at the carotid bulbs per NASCET criteria. CTA HEAD: The anterior and posterior intracranial circulations are intact with no evidence for high grade narrowing, occlusion, or aneurysm. IMPRESSION: No acute CTA abnormality of the major head and neck arterial vasculature.
[2025-04-18] MEDS: PROCHLORPERAZINE EDISYLATE 5 MG/ML 2ML VIAL IV PRN (12:41)
[2025-04-18] MEDS: SODIUM CHLORIDE 0.9% 1,000 ML IV SCH (12:45)
--- NOTE | 2025-04-18 15:44 | DVHPN2 ---
Progress Note Date Seen: Apr 18, 2025 Resident Creating Document: ZEINAB LAMAS RESIDENT Medical Necessity Reason Pt with a Central, PICC or Fol: No Subjective Review of Systems Patient seen and examined. Reports nausea but no vomiting. Abdomen soft, nontender. Objective vital signs Vital Sign Date Time Temp Pulse Resp B/P (MAP) Pulse Ox O2 Delivery O2 Flow Rate FiO2 04/18/25 13:00 99.4 110 14 136/56 (82) 97 99.4 04/18/25 08:05 Room Air* 0 21 Total Intake and Output 04/17/25 04/17/25 04/18/25 15:00 23:00 07:00 Intake Total 1200 ml 400 ml Output Total 300 ml 700 ml Balance -300 ml 500 ml 400 ml medications Current Medications Medications Dose Ordered Sig/Edouard Route Start Time Stop Time Status Last Admin Dose Admin Ondansetron HCl 4 mg Q4HP PRN IV 04/16/25 04:45 04/17/25 18:42 4 MG Enoxaparin Sodium 40 mg DAILY SC 04/16/25 10:00 04/18/25 09:51 40 MG Nitroglycerin 0.4 mg Q5MINP PRN SL 04/16/25 04:45 Morphine Sulfate 2 mg Q30M PRN IV 04/16/25 05:00 Meclizine HCl 25 mg Q8HR PO 04/16/25 06:00 04/16/25 06:07 25 MG Acetaminophen 650 mg Q6HP PRN PO 04/16/25 05:30 04/17/25 01:44 650 MG Pantoprazole Sodium 40 mg DAILY@0600 PO 04/16/25 06:00 04/16/25 06:07 40 MG Hydralazine HCl 10 mg Q4HPRN PRN IV 04/16/25 18:30 04/18/25 09:51 10 MG Prochlorperazine Edisylate 10 mg Q4HPRN PRN IV 04/18/25 12:00 04/18/25 12:41 10 MG Sodium Chloride 1,000 ml @ 125 mls/hr Q8H IV 04/18/25 12:45 Examination Patient lying in bed, in no acute distress General: Well-built, afebrile, palor, mucosae are moist Cardiovascular: Regular S1 and S2. No murmurs, gallops or rubs. No JVD elevation. No pedal edema Respiratory: Normal B/L air entry on room air. Clear lung sounds on auscultation Abdomen: Soft, nontender, nondistended, normoactive bowel sounds, no rebound tenderness, no organomegaly, no masses Genitourinary: Deferred Psych/Mental Status: A/Ox3 laboratory and microbiology Laboratory Tests 04/16/25 00:24 Test 04/16/25 00:24 Range/Units Serum Glucose 147 H 74-106 mg/dL Labs and/or images reviewed: Labs reviewed by me, Image(s) reviewed by me Problem List/Assessment/Plan Problem List/Assessment/Plan Intractable nausea vomiting secondary to migraine episode Likely complex migraine Rule out acute stroke Uncontrolled hypertension Sore throat rule out pharyngitis MRI brain shows 8 mm acute right posterolateral medullary infarct CT angio head and neck shows no acute CT abnormality of major head and neck arterial vasculature Plan: Recommendation: Dr. Sung Given the presentation, examination and laboratory findings, patient's nausea and vomiting appear to be consistent with complex migraine. Currently on Compazine 10 mg q.4 PRN Continue Protonix 40 mg IV daily Rest of management per primary team Neurology consultation recommended Recommend adequate blood pressure control Clear liquid diet, advanced as tolerated Plan discussed with patient, nurse at bedside in which all questions were answered Case discussed with Dr. Sung Plan discussed with: Patient, Other (Nurse) ZEINAB LAMAS RESIDENT Apr 18, 2025 15:44
--- NOTE | 2025-04-18 15:54 | DVHPN2 ---
Subjective still having vertigo Reviewed: H&P Changes from previous H/P or p: No Changes Eyes: No Pain, No Vision change, No Conjunctivae inflammation, No Eyelid inflammation, No Other, No Redness ENT: No Ear pain, No Ear discharge, No Nose pain, No Nose discharge, No Nose congestion, No Mouth pain, No Mouth swelling, No Throat pain, No Throat swelling; Other (Tinnitus bilateral ear) Cardiovascular: No Chest Pain, No Palpitations, No Orthopnea, No Paroxysmal Noc. Dyspnea, No Edema, No Lt Headedness, No Other Respiratory: No Cough, No Dry, No Shortness of breath, No SOB with excertion, No Wheezing, No Hemoptysis, No Pleuritic Pain, No Sputum, No Other Gastrointestinal: Nausea, Vomiting; No Abdominal Pain, No Diarrhea, No Constipation, No Melena, No Hematochezia, No Other Genitourinary: No Dysuria, No Frequency, No Incontinence, No Hematuria, No Retention, No Other Musculoskeletal: No other, No neck pain, No shoulder pain, No arm pain, No back pain, No hand pain, No leg pain, No foot pain Skin: No Rash, No Lesions, No Jaundice, No Bruising, No Other Objective Vitals Vital Signs Date Time Temp Pulse Resp B/P (MAP) Pulse Ox O2 Delivery O2 Flow Rate FiO2 04/18/25 13:00 99.4 110 14 136/56 (82) 97 99.4 04/18/25 08:05 Room Air* 0 21 Intake/Output Intake and Output 04/18/25 05:00 Intake Total 1600 ml Output Total 1000 ml Balance 600 ml Intake Oral 1600 ml Output Urine Total 1000 ml # Voids 2 General Appearance: Alert, Oriented X3 Lungs: Clear to auscultation Cardiovascular: Regular rate, Normal S1, Normal S2 Abdomen: Normal bowel sounds Medications Current Medications Medications Dose Ordered Sig/Edouard Route Start Time Stop Time Status Last Admin Dose Admin Ondansetron HCl 4 mg Q4HP PRN IV 04/16/25 04:45 04/17/25 18:42 4 MG Enoxaparin Sodium 40 mg DAILY SC 04/16/25 10:00 04/18/25 09:51 40 MG Nitroglycerin 0.4 mg Q5MINP PRN SL 04/16/25 04:45 Morphine Sulfate 2 mg Q30M PRN IV 04/16/25 05:00 Meclizine HCl 25 mg Q8HR PO 04/16/25 06:00 04/16/25 06:07 25 MG Acetaminophen 650 mg Q6HP PRN PO 04/16/25 05:30 04/17/25 01:44 650 MG Pantoprazole Sodium 40 mg DAILY@0600 PO 04/16/25 06:00 04/16/25 06:07 40 MG Hydralazine HCl 10 mg Q4HPRN PRN IV 04/16/25 18:30 04/18/25 09:51 10 MG Prochlorperazine Edisylate 10 mg Q4HPRN PRN IV 04/18/25 12:00 04/18/25 12:41 10 MG Sodium Chloride 1,000 ml @ 125 mls/hr Q8H IV 04/18/25 12:45 Laboratory Results Laboratory Tests 04/16/25 00:24 Urinalysis Test 04/17/25 16:38 Urine Color Yellow (Yellow) Urine Clarity Clear (Clear) Urine pH 6.0 (5.0-9.0) Urine Specific [place] 1.036 (1.001-1.035) Urine Protein Trace (Negative) H Urine Ketones 3+ (Negative) H Urine Blood Trace /uL (Negative) H Urine Nitrite Negative (Negative) Urine Bilirubin Negative (Negative) Urine Urobilinogen Normal mg/dL (Negative) Urine Leukocyte Esterase Negative /uL (Negative) Urine RBC 4 /hpf (0 - 4) Urine Microscopic WBC 3 /HPF (0-5) Urine Squamous Epithelial Cells Few /hpf (<5) Urine Bacteria None seen /hpf (None Seen) Urine Mucus Few (None Seen) Urine Glucose Normal mg/dL (Normal) Urine Test Negative (Negative) Assessment/Plan Assessment/Plan 54-year-old female with a known history of hypertension, chronic migraine presented to the hospital with a nausea and vomiting dizziness and vertigo found to have 1. Complex migraine 2. Nausea and vomiting suspected secondary to 1. 3. 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 Aspirin, statin, meclizine PT eval Plan discussed with: Patient My Orders Orders - ZAKI SANCHES MD Procedure Category Date Status Time Prochlorperazine Inj PHA 12/8/25 In Process (Compazine Inj) 12:00 Sodium Chloride 0.9% PHA 04/18/25 In Process 12:45 Date of Service: Apr 18, 2025 Billing Provider: ZAKI SANCHES MD Common Visit Codes: [id number] INP/OBS CARE(HIGH) ZAKI SANCHES MD Apr 18, 2025 15:54
[2025-04-18] MEDS: METOCLOPRAMIDE HCL 5MG/ml INJ 2ml VIAL IV ONE (17:52)
[2025-04-18] MEDS: PANTOPRAZOLE 40 MG/10 ML VIAL INJ IV ONE (17:54)
[2025-04-19] VITALS (10 sets, daily range): BP systolic 139–160; BP diastolic 63–100; PULSE 96–120; RESP 12–18; TEMP 98–98.8; O2SAT 95–97
[2025-04-19] MEDS: PANTOPRAZOLE 40 MG/10 ML VIAL INJ IV SCH (08:55)
[2025-04-19 11:50] LABS: Alanine Aminotransferase 9.0 U/L (7-40); Albumin 3.7 g/dL (3.2-4.8); Alkaline Phosphatase 73.0 U/L (46-116); Bilirubin, Direct 0.3 mg/dL (<0.3); Bilirubin, Total 1.0 mg/dL (0.2-1.0); Total Protein 6.5 g/dL (5.7-8.2)
[2025-04-19 11:53] LABS: Free T4 (Free Thyroxine) 1.33 ng/dL (0.89-1.76)
--- NOTE | 2025-04-19 12:16 | DVHPN2 ---
Subjective still having vertigo Reviewed: H&P Changes from previous H/P or p: No Changes Eyes: No Pain, No Vision change, No Conjunctivae inflammation, No Eyelid inflammation, No Other, No Redness ENT: No Ear pain, No Ear discharge, No Nose pain, No Nose discharge, No Nose congestion, No Mouth pain, No Mouth swelling, No Throat pain, No Throat swelling; Other (Tinnitus bilateral ear) Cardiovascular: No Chest Pain, No Palpitations, No Orthopnea, No Paroxysmal Noc. Dyspnea, No Edema, No Lt Headedness, No Other Respiratory: No Cough, No Dry, No Shortness of breath, No SOB with excertion, No Wheezing, No Hemoptysis, No Pleuritic Pain, No Sputum, No Other Gastrointestinal: Nausea, Vomiting; No Abdominal Pain, No Diarrhea, No Constipation, No Melena, No Hematochezia, No Other Genitourinary: No Dysuria, No Frequency, No Incontinence, No Hematuria, No Retention, No Other Musculoskeletal: No other, No neck pain, No shoulder pain, No arm pain, No back pain, No hand pain, No leg pain, No foot pain Skin: No Rash, No Lesions, No Jaundice, No Bruising, No Other Objective Vitals Vital Signs Date Time Temp Pulse Resp B/P (MAP) Pulse Ox O2 Delivery O2 Flow Rate FiO2 04/19/25 09:30 98.7 107 14 160/100 (120) 97 98.7 04/19/25 08:05 Room Air* 0 21 Intake/Output Intake and Output 04/19/25 07:00 Intake Total 800 ml Output Total 0 ml Balance 800 ml Intake Oral 800 ml Stool Total 0 ml # Voids 4 General Appearance: Alert, Oriented X3 Lungs: Clear to auscultation Cardiovascular: Regular rate, Normal S1, Normal S2 Abdomen: Normal bowel sounds Medications Current Medications Medications Dose Ordered Sig/Edouard Route Start Time Stop Time Status Last Admin Dose Admin Ondansetron HCl 4 mg Q4HP PRN IV 04/16/25 04:45 04/17/25 18:42 4 MG Enoxaparin Sodium 40 mg DAILY SC 04/16/25 10:00 04/19/25 08:55 40 MG Nitroglycerin 0.4 mg Q5MINP PRN SL 04/16/25 04:45 Morphine Sulfate 2 mg Q30M PRN IV 04/16/25 05:00 Meclizine HCl 25 mg Q8HR PO 04/16/25 06:00 04/16/25 06:07 25 MG Acetaminophen 650 mg Q6HP PRN PO 04/16/25 05:30 04/17/25 01:44 650 MG Hydralazine HCl 10 mg Q4HPRN PRN IV 04/16/25 18:30 04/19/25 08:53 10 MG Prochlorperazine Edisylate 10 mg Q4HPRN PRN IV 04/18/25 12:00 04/19/25 09:07 10 MG Sodium Chloride 1,000 ml @ 125 mls/hr Q8H IV 04/18/25 12:45 04/19/25 05:44 125 MLS/HR Pantoprazole Sodium 40 mg DAILY IV 04/19/25 10:00 04/19/25 08:55 40 MG Laboratory Results Laboratory Tests 04/16/25 00:24 Chemistry Test 04/19/25 11:11 Albumin 3.7 g/dL (3.2-4.8) Total Protein 6.5 g/dL (5.7-8.2) LFT Test 04/19/25 11:11 Alanine Aminotransferase (ALT) 9 U/L (7-40) Alkaline Phosphatase 73 U/L (46-116) Aspartate Amino Transferase (AST) 13 U/L (13-40) Direct Bilirubin 0.3 mg/dL (<0.3) Total Bilirubin 1.0 mg/dL (0.2-1.0) Urinalysis Test 04/17/25 16:38 Urine Color Yellow (Yellow) Urine Clarity Clear (Clear) Urine pH 6.0 (5.0-9.0) Urine Specific [place] 1.036 (1.001-1.035) Urine Protein Trace (Negative) H Urine Ketones 3+ (Negative) H Urine Blood Trace /uL (Negative) H Urine Nitrite Negative (Negative) Urine Bilirubin Negative (Negative) Urine Urobilinogen Normal mg/dL (Negative) Urine Leukocyte Esterase Negative /uL (Negative) Urine RBC 4 /hpf (0 - 4) Urine Microscopic WBC 3 /HPF (0-5) Urine Squamous Epithelial Cells Few /hpf (<5) Urine Bacteria None seen /hpf (None Seen) Urine Mucus Few (None Seen) Urine Glucose Normal mg/dL (Normal) Urine Test Negative (Negative) Assessment/Plan Assessment/Plan 54-year-old female with a known history of hypertension, chronic migraine presented to the hospital with a nausea and vomiting dizziness and vertigo found to have 1. Complex migraine 2. Nausea and vomiting suspected secondary to 1. 3. 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 Aspirin, statin, meclizine PT eval pending neurology consult Plan discussed with: Patient My Orders Orders - ZAKI SANCHES MD Procedure Category Date Status Time Sodium Chloride 0.9% PHA 04/18/25 In Process 12:45 * Neurology Consult CONS 04/19/25 Transmitted 10:07 Date of Service: Apr 19, 2025 Billing Provider: ZAKI SANCHES MD Common Visit Codes: [id number] INP/OBS CARE(HIGH) ZAKI SANCHES MD Apr 19, 2025 12:16
[2025-04-19] MEDS ORDERED: ASPirin-EC 81 mg tab PO ONE (17:15)
[2025-04-19] MEDS: CLOPIDOGREL BISULFATE 75 MG TAB PO ONE (17:15)
[2025-04-19 17:35] LABS: Alanine Aminotransferase 11 U/L (7-40); Albumin 3.8 g/dL (3.2-4.8); Alkaline Phosphatase 72 U/L (46-116); Anion Gap 17 (5-15); BUN/Creatinine Ratio 48.0 (10.0-20.0); Calcium 8.9 mg/dL (8.7-10.4); Glucose 75 mg/dL (74-106); Magnesium 2.2 mg/dL (1.6-2.6); Potassium 3.6 mmol/L (3.5-5.1); Total Protein 6.6 g/dL (5.7-8.2)
[2025-04-19 17:36] LABS: Bilirubin, Total 0.9 mg/dL (0.2-1.0)
[2025-04-19 17:40] LABS: Blood Urea Nitrogen 36 mg/dL (9-23); Carbon Dioxide 17 mmol/L (20-31); Chloride 116 mmol/L (98-107); Sodium 150 mmol/L (136-145)
[2025-04-19 17:43] LABS: Hematocrit 43.1 % (36.0-46.0); Hemoglobin 14.5 g/dL (12.2-16.2); Mean Corpuscular Hemoglobin 32.4 pg (28.0-32.0); Mean Corpuscular Volume 96.1 fL (80.0-100.0); Nucleated Red Blood Cells % 0.1 %
--- NOTE | 2025-04-19 18:17 | DVH ---
EXAM: CT HEAD WITHOUT CONTRAST INDICATION: right sided weakness TECHNIQUE: CT of the head without intravenous contrast. Radiation Dose : 1. Head: CT Dose: CTDI volume is 49.1 mGy. Dose-length product is 787.1 mGy*cm The dose indicators for CT are the volume Computed Tomography (CT) Dose Index (CTDIvol) and the Dose Length Product (DLP), and are measured in units of mGy and mGy-cm, respectively. These indicators are not patient dose, but values generated from the CT scanner acquisition factors. The report includes radiation exposure data for exposures received during this examination. COMPARISON: CT ANGIO HEAD/NECK on DOS: 04/18/25, MRI BRAIN HEAD WO CONTRAST on DOS: 04/18/25, CT HEAD CONTRAST ONLY on DOS: 04/16/25, CT HEAD WITHOUT CONTRAST on DOS: 04/16/25 FINDINGS: Small region of hypoattenuation in the right medulla corresponds with acute infarct better delineated on recent MRI. The cerebral parenchyma appears to be otherwise normal in configuration and attenuation. The ventricles, cisterns, and sulci appear age-appropriate. There is no evidence for acute hemorrhage or mass effect. The orbits are normal. The visualized paranasal sinuses and mastoid air cells are clear. The soft tissues and osseous structures appear within normal limits. IMPRESSION: 1. Evolving acute infarct within the right medulla, better delineated on recent MRI. 2. No acute intracranial hemorrhage. Radiation optimization: All CT scans at this facility use at least one of these dose optimization techniques: automated exposure control mA and/or kV adjustment per patient size (includes targeted exams where dose is matched to clinical indication) or iterative reconstruction.
[2025-04-19] MEDS: METOCLOPRAMIDE HCL 5MG/ml INJ 2ml VIAL IV ONE (18:40)
--- NOTE | 2025-04-19 20:35 | DVHINCON2 ---
Date of service: Apr 19, [address] Blum Reason for Consultation stroke History of Present Illness Ms. Gamboa is a 54 years old right-handed female with a history of hypertension, she came to the [facility] on 04/15[facility]2025 with a chief company of dizziness. At this time, she is awake, oriented x3, she whispers with clear voice, the history is obtained from her The patient had had a few days' headache prior to this hospital visit. On 04/15/2025, she developed dizziness/spinning sensation, right-sided weakness, ri ght arm numbness, headache, and she drift to the right side when he walked, but her voice was fine. After he came to the hospital, MR brain scan confirmed right medulla oblongata acute stroke Except her headache, her mental status, voice, dizziness are worse on 04/19/2025, he had lost swallow. NG tube attempted from the left nostril, but failed due to active bleeding. The patient's looks has discomfort in the throat At this time when I see her, is not in acute distress UDS, 04/17/2025: Negative Urinalysis, 04/17/2025: Unremarkable CBC 04/19/25: ok Na, 04/16/25: 141. 04/19/25: 150 Bun/Cr 04/19/25: 36/0.75 HCO3 04/19/25: 17 LFT 04/19/25: ok TG/HDL/LDL/HDL, 04/16/2025: 69/224/129/83 Vitamin B12, 04/16/25: 472 TSH, 04/16/2025: 0.1 CT head, 04/16/25: No acute intracranial abnormality. CT head, 04/19/2025: 1. Evolving acute infarct within the right medulla, better delineated on recent MRI. 2. No acute intracranial hemorrhage CTA head, neck, 04/18/2025: No acute CTA abnormality of the major head and neck arterial vasculature MRI head, 04/17/2025: 8 mm acute right posterolateral medullary infarct Past Medical History Hypertension Past Surgical History No surgeries Family History: Patient reports no known family medical history. Family History Hypertension, no heart disease, no stroke, no DVT Social History She has no history of tobacco smoking, drug or alcohol abuse Allergies: Coded Allergies: No Known Drug Allergy (Verified Allergy, Unknown, 04/15/25) Home Meds No Active Prescriptions or Reported Meds Current Medications Current Medications Medications (Trade) Dose Ordered Sig/Edouard Route PRN Reason Start Time Stop Time Status Last Admin Pantoprazole Sodium (Protonix) 40 mg DAILY IV 04/19/25 10:00 04/19/25 08:55 Aspirin (Ecotrin Enteric Coated Tablet) 81 mg DAILY PO 04/20/25 10:00 Clopidogrel Bisulfate (Plavix) 75 mg DAILY PO 04/20/25 10:00 Atorvastatin Calcium (Lipitor) 40 mg HS PO 04/19/25 22:00 Labetalol HCl (Labetalol HCl) 10 mg Q2HPRN PRN IV SBP>160 04/19/25 17:45 Review of Systems As above, the other systems are negative Vital Signs Vital Signs Date Time Temp Pulse Resp B/P (MAP) Pulse Ox O2 Delivery O2 Flow Rate FiO2 04/19/25 17:11 98.8 116 12 146/89 (108) 97 98.8 04/19/25 08:05 Room Air* 0 21 Physical Exam General: the patient is well developed and nourished. No acute distress. HEENT: Normocephalic, neck is supple, no carotid bruits. No mass. RESPIRATORY: Normal respiratory effort with symmetrical lung expansion. Lungs clear to auscultation. CARDIOVASCULAR: Regular rate and rhythm with no murmurs. S1, S2. ABDOMEN: Soft, nontender, normal bowel sound NEUROLOGICAL: MENTAL STATUS: Awake and alert. Oriented to person, place, time SPEECH, LANGUAGE, HIGHER CORTICAL FUNCTION: no aphasia, he whispers with reasonably clear voice. CRANIAL NERVES: #2: Intact visual reddy to confrontation. The optic discs were sharp. #3,4,6: Pupils are equal, round and reactive, 1-2 mm. EOMs full and conjugate. No nystagmus. #5: Facial sensation intact in all three divisions bilaterally. Mandibular strength intact. #7: Facial muscles symmetrical and strength intact. #8: Hearing grossly normal to voice. #9,10: Uvula and soft palate rise in the midline. Swallow and voice are normal. #11: Trapezius and sternomastoid strength intact bilaterally. #12: Tongue midline. No fasciculations or atrophy. SENSATION: Sensation to touch and pinprick is normal. MOTOR: Normal tone in the upper and lower extremity. Normal muscle bulk. No fasciculations. No abnormal movements or posturing. Muscle strength of the major groups in the upper extremities is 4/5 with possible right drift. Muscle stren gth of the major groups in the lower extremities is 5/5. REFLEXES: Deep tendon reflexes are symmetrical. No pathological reflexes. CEREBELLAR/COORDINATION: Finger to nose showed mild intentional tremor in the right upper extremity GAIT/STATION: deferred. Labs/Diagnostic Data Labs Test 04/19/25 16:59 04/19/25 11:11 04/17/25 16:38 04/16/25 00:24 Range/Units POC Glucose 78 70-106 mg/dl White Blood Count 8.4 # 4.4-10.8 10^3/uL Red Blood Count 4.49 4.0-5.20 10^6/uL Hemoglobin 14.5 12.2-16.2 g/dL Hematocrit 43.1 # 36.0-46.0 % Mean Corpuscular Volume 96.1 80.0-100.0 fL Mean Corpuscular Hemoglobin 32.4 H 28.0-32.0 pg Mean Corpuscular Hemoglobin Concent 33.7 32.0-36.0 g/dL Red Cell Distribution Width 13.6 11.8-14.3 % Platelet Count 224 140-450 10^3/uL Mean Platelet Volume 8.3 6.9-10.8 fL Neutrophils (%) (Auto) 77.6 37.0-80.0 % Lymphocytes (%) (Auto) 17.8 10.0-50.0 % Monocytes (%) (Auto) 4.4 0.0-12.0 % Eosinophils (%) (Auto) 0.1 0.0-7.0 % Basophils (%) (Auto) 0.1 0.0-2.0 % Neutrophils # (Auto) 6.5 1.6-8.6 10 ^3/uL Lymphocytes # (Auto) 1.5 0.4-5.4 10 ^3/uL Monocytes # (Auto) 0.4 0-1.3 10 ^3/uL Eosinophils # (Auto) 0 0-0.8 10 ^3/uL Basophils # (Auto) 0 0-0.2 10 ^3/uL Nucleated Red Blood Cells 0.1 % Erythrocyte Sedimentation Rate 11 0-20 mm/hr Sodium Level 150 #H 136-145 mmol/L Potassium Level 3.6 3.5-5.1 mmol/L Chloride Level 116 #H 98-107 mmol/L Carbon Dioxide Level 17 L 20-31 mmol/L Anion Gap 17 H 5-15 Blood Urea Nitrogen 36 H 9-23 mg/dL Creatinine 0.75 0.550-1.02 mg/dL Glomerular Filtration Rate Calc 96 >90 mL/min BUN/Creatinine Ratio 48.0 H 10.0-20.0 Serum Glucose 75 74-106 mg/dL Calcium Level 8.9 8.7-10.4 mg/dL Magnesium Level 2.2 1.6-2.6 mg/dL Total Bilirubin 0.9 0.2-1.0 mg/dL Direct Bilirubin 0.3 <0.3 mg/dL Aspartate Amino Transferase (AST) 15 13-40 U/L Alanine Aminotransferase (ALT) 11 7-40 U/L Alkaline Phosphatase 72 46-116 U/L Total Protein 6.6 5.7-8.2 g/dL Albumin 3.8 3.2-4.8 g/dL Free Thyroxine (T4) Calculated 1.33 0.89-1.76 ng/dL Total Triiodothyronine (TT3) 0.87 0.60-1.81 ng/mL Urine Color Yellow Yellow Urine Clarity Clear Clear Urine pH 6.0 5.0-9.0 Urine Specific [place] 1.036 H 1.001-1.035 Urine Protein Trace H Negative Urine Ketones 3+ H Negative Urine Blood Trace H Negative /uL Urine Nitrite Negative Negative Urine Bilirubin Negative Negative Urine Urobilinogen Normal Negative mg/dL Urine Leukocyte Esterase Negative Negative /uL Urine RBC 4 0 - 4 /hpf Urine Microscopic WBC 3 0-5 /HPF Urine Squamous Epithelial Cells Few <5 /hpf Urine Bacteria None seen None Seen /hpf Urine Mucus Few None Seen Urine Glucose Normal Normal mg/dL Urine Test Negative Negative Urine Opiates Screen Neg NEGATIVE Urine Fentanyl Screen Neg NEGATIVE Urine Barbiturates Screen Neg NEGATIVE Urine Phencyclidine Screen Neg NEGATIVE Urine Amphetamines Screen Neg NEGATIVE Urine Benzodiazepines Screen Neg NEGATIVE Urine Cocaine Screen Neg NEGATIVE Urine Cannabinoids Screen Neg NEGATIVE Hemoglobin A1c 5.0 <5.7 % A1C Troponin I High Sensitivity < 3 L </=34 ng/L Triglycerides Level 69 < 150 mg/dL Cholesterol Level 224 H < 200 mg/dL LDL Cholesterol 129 H < 100 mg/dL HDL Cholesterol 83 H 40-59 mg/dL Vitamin B12 Level 472 211-911 pg/mL Vitamin D 25-Hydroxy 35.5 30.0-100 ng/mL Thyroid Stimulating Hormone (TSH) 0.10 L 0.55-4.78 uIU/mL Hepatitis A Antibody Total Positive H Negative Hepatitis B Surface Antigen Negative Negative Hepatitis B Surface Antibody Negative Negative Hepatitis B Core Total Antibody Negative Negative Hepatitis C Antibody Negative Negative Assessment Acute medulla oblongata stroke Dysphagia Vertigo Right hemiparesis Gait disturbance Nasal bleeding secondary to NG tube attempts Plan/Recommendation Monitoring Supportive treatment Transferred to [facility] Follow up MRI brain scan Aspirin 300 mg suppository Stabilize blood pressure Lipitor 40 mg daily later DVT prophylaxis GI prophylaxis Consider physical therapy later More recommendation per clinical course Prognosis: Poor Critical care time spent is 45 minutes This medical document was created using an electronic medical record system with [employer] dictation system. Although this document has been carefully reviewed, there may still be some phonetic and typographical errors. These areas are purely typographical due to imperfections of the software programs, and do not reflect any compromise in the patient's medical care. Plan discussed with: Spouse, Other HERNAN HOLT MD Apr 19, 2025 20:35
[2025-04-19] MEDS: ATORVASTATIN 20 MG TAB PO SCH (22:00)
[2025-04-20] VITALS (70 sets, daily range): BP systolic 130–201; BP diastolic 70–115; PULSE 60–114; RESP 11–28; TEMP 98–98.7; O2SAT 95–99
[2025-04-20] MEDS: SODIUM CHLORIDE 0.9% 1,000 ML IV SCH (00:21)
[2025-04-20 05:51] LABS: Hematocrit 40.8 % (36.0-46.0); Hemoglobin 13.6 g/dL (12.2-16.2); Mean Corpuscular Hemoglobin 32.3 pg (28.0-32.0); Mean Corpuscular Volume 97.0 fL (80.0-100.0); Nucleated Red Blood Cells % 0.1 %
[2025-04-20 06:16] LABS: Albumin 3.7 g/dL (3.2-4.8); Alkaline Phosphatase 68 U/L (46-116); Anion Gap 16 (5-15); Bilirubin, Total 1.1 mg/dL (0.2-1.0); Calcium 8.7 mg/dL (8.7-10.4); Total Protein 6.6 g/dL (5.7-8.2)
[2025-04-20 06:27] LABS: Alanine Aminotransferase < 9 U/L (7-40); Carbon Dioxide 18 mmol/L (20-31); Chloride 113 mmol/L (98-107); Glucose 71 mg/dL (74-106); Potassium 3.3 mmol/L (3.5-5.1); Sodium 147 mmol/L (136-145)
[2025-04-20 06:32] LABS: BUN/Creatinine Ratio 23.9 (10.0-20.0); Blood Urea Nitrogen 17 mg/dL (9-23)
--- NOTE | 2025-04-20 08:58 | DVHPN2 ---
Progress Note - Dictate Date Seen: Apr 20, 2025 Medical Necessity Reason Pt with a Central, PICC or Fol: No Subjective Ms. Gamboa is a 54 years old right-handed female with a history of hypertension, she came to the [facility] on 04/15/2025 with a chief company of dizziness. I have seen and examined the patient, I have talked to her nurse, and MRI center. She is doing fine, or better, awake oriented x3, her voice stronger, moves the arms and legs She reports constant ongoing vertigo UDS, 04/17/2025: Negative Urinalysis, 04/17/2025: Unremarkable CBC 04/19/25: ok Na, 04/16/25: 141. 04/19/25: 150 Bun/Cr 04/19/25: 36/0.75 HCO3 04/19/25: 17 LFT 04/19/25: ok TG/HDL/LDL/HDL, 04/16/2025: 69/224/129/83 Vitamin B12, 04/16/25: 472 TSH, 04/16/2025: 0.1 CT head, 04/16/25: No acute intracranial abnormality. CT head, 04/19/2025: 1. Evolving acute infarct within the right medulla, better delineated on recent MRI. 2. No acute intracranial hemorrhage CTA head, neck, 04/18/2025: No acute CTA abnormality of the major head and neck arterial vasculature MRI head, 04/17/2025: 8 mm acute right posterolateral medullary infarct MRI head, 04/20/2025: No significant interval change. Redemonstration of an acute infarct within the right posterolateral medulla. vital signs Vital Sign Date Time Temp Pulse Resp B/P (MAP) Pulse Ox O2 Delivery O2 Flow Rate FiO2 04/20/25 08:30 71 12 140/82 (101) 97 04/20/25 05:55 Room Air* 0 21 04/20/25 05:00 98.1 98.1 Total Intake and Output 04/19/25 04/19/25 04/20/25 15:00 23:00 07:00 Intake Total 310 ml Output Total 0 ml Balance 0 ml 310 ml medications Current Medications Medications Dose Ordered Sig/Edouard Route Start Time Stop Time Status Last Admin Dose Admin Ondansetron HCl 4 mg Q4HP PRN IV 04/16/25 04:45 Hold 04/17/25 18:42 4 MG Enoxaparin Sodium 40 mg DAILY SC 04/16/25 10:00 04/19/25 08:55 40 MG Nitroglycerin 0.4 mg Q5MINP PRN SL 04/16/25 04:45 Morphine Sulfate 2 mg Q30M PRN IV 04/16/25 05:00 Meclizine HCl 25 mg Q8HR PO 04/16/25 06:00 04/16/25 06:07 25 MG Acetaminophen 650 mg Q6HP PRN PO 04/16/25 05:30 04/17/25 01:44 650 MG Prochlorperazine Edisylate 10 mg Q4HPRN PRN IV 04/18/25 12:00 04/19/25 23:30 10 MG Pantoprazole Sodium 40 mg DAILY IV 04/19/25 10:00 04/19/25 08:55 40 MG Clopidogrel Bisulfate 75 mg DAILY PO 04/20/25 10:00 Atorvastatin Calcium 40 mg HS PO 04/19/25 22:00 Labetalol HCl 10 mg Q2HPRN PRN IV 04/19/25 17:45 Aspirin 300 mg DAILY WA 04/20/25 10:00 Sodium Chloride 1,000 ml @ 80 mls/hr [id number] IV 04/20/25 00:00 04/20/25 00:21 80 MLS/HR objective General: the patient is well developed and nourished. No acute distress. MENTAL STATUS: Awake and alert. Oriented to person, place, time SPEECH, LANGUAGE, HIGHER CORTICAL FUNCTION: no aphasia, he whispers with reasonably clear voice. CRANIAL NERVES: Pupils are equal, round and reactive, 1-2 mm. EOMs full and conjugate. No nystagmus. Facial sensation intact in all three divisions bilaterally. Mandibular strength intact. Facial muscles symmetrical and strength intact. Tongue midline. No fasciculations or atrophy. SENSATION: Sensation to touch and pinprick is normal. MOTOR: Normal tone in the upper and lower extremity. Normal muscle bulk. No fasciculations. No abnormal movements or posturing. Muscle strength of the major groups in the upper extremities is 4/5 with possible right drift. Muscle strength of the major groups in the lower extremities is 5/5. REFLEXES: Deep tendon reflexes are symmetrical. No pathological reflexes. CEREBELLAR/COORDINATION: Finger to nose showed mild intentional tremor in the right upper extremity GAIT/STATION: deferred. laboratory and microbiology Laboratory Tests 04/20/25 05:12 Test 04/20/25 05:12 Range/Units Serum Glucose 71 L 74-106 mg/dL Problem List Acute medulla oblongata stroke Dysphagia Vertigo Right hemiparesis Gait disturbance Nasal bleeding secondary to NG tube attempts Assessment/Plan Monitoring Supportive treatment [facility] Aspirin 300 mg suppository Stabilize blood pressure Lipitor 40 mg daily later DVT prophylaxis GI prophylaxis Consider physical therapy later More recommendation per clinical course This medical document was created using an electronic medical record system with [employer] dictation system. Although this document has been carefully reviewed, there may still be some phonetic and typographical errors. These areas are purely typographical due to imperfections of the software programs, and do not reflect any compromise in the patient's medical care. Prognosis poor Plan discussed with: Other Critical Care Time(min): 35 HERNAN HOLT MD Apr 20, 2025 08:57
[2025-04-20] MEDS: POTASSIUM CHL 20MEQ/100ML 100 ML IV ONE (09:11)
[2025-04-20] MEDS: CLOPIDOGREL BISULFATE 75 MG TAB PO SCH (10:00)
[2025-04-20] MEDS ORDERED: ASPirin-EC 81 mg tab PO SCH (10:00)
--- NOTE | 2025-04-20 15:24 | DVHPN2 ---
Progress Note Date Seen: Apr 20, 2025 Resident Creating Document: ZEINAB LAMAS RESIDENT Medical Necessity Reason Pt with a Central, PICC or Fol: No Subjective Review of Systems Patient seen, was on the transport bed to get MRI. Head CT on 04/19 shows shows Evolving acute infarct within the right medulla, better delineated on recent MRI. Objective vital signs Vital Sign Date Time Temp Pulse Resp B/P (MAP) Pulse Ox O2 Delivery O2 Flow Rate FiO2 04/20/25 08:30 71 12 140/82 (101) 97 04/20/25 05:55 Room Air* 0 21 04/20/25 05:00 98.1 98.1 Total Intake and Output 04/19/25 04/19/25 04/20/25 15:00 23:00 07:00 Intake Total 390 ml Output Total 0 ml Balance 0 ml 390 ml medications Current Medications Medications Dose Ordered Sig/Edouard Route Start Time Stop Time Status Last Admin Dose Admin Ondansetron HCl 4 mg Q4HP PRN IV 04/16/25 04:45 Hold 04/17/25 18:42 4 MG Enoxaparin Sodium 40 mg DAILY SC 04/16/25 10:00 04/20/25 09:10 40 MG Nitroglycerin 0.4 mg Q5MINP PRN SL 04/16/25 04:45 Morphine Sulfate 2 mg Q30M PRN IV 04/16/25 05:00 Meclizine HCl 25 mg Q8HR PO 04/16/25 06:00 04/16/25 06:07 25 MG Acetaminophen 650 mg Q6HP PRN PO 04/16/25 05:30 04/17/25 01:44 650 MG Prochlorperazine Edisylate 10 mg Q4HPRN PRN IV 04/18/25 12:00 04/19/25 23:30 10 MG Pantoprazole Sodium 40 mg DAILY IV 04/19/25 10:00 04/20/25 09:08 40 MG Clopidogrel Bisulfate 75 mg DAILY PO 04/20/25 10:00 Atorvastatin Calcium 40 mg HS PO 04/19/25 22:00 Labetalol HCl 10 mg Q2HPRN PRN IV 04/19/25 17:45 Aspirin 300 mg DAILY LA 04/20/25 10:00 04/20/25 10:11 300 MG Sodium Chloride 1,000 ml @ 80 mls/hr [id number] IV 04/20/25 00:00 04/20/25 12:30 80 MLS/HR Examination Patient lying in bed, in no acute distress General: Well-built, afebrile, palor, mucosae are moist Cardiovascular: Regular S1 and S2. No murmurs, gallops or rubs. No JVD elevation. No pedal edema Respiratory: Normal B/L air entry on room air. Clear lung sounds on auscultation Abdomen: Soft, nontender, nondistended, normoactive bowel sounds, no rebound tenderness, no organomegaly, no masses Genitourinary: Deferred Psych/Mental Status: A/Ox3 laboratory and microbiology Laboratory Tests 04/20/25 05:12 Test 04/20/25 05:12 Range/Units Serum Glucose 71 L 74-106 mg/dL Microbiology Date/Time Source Procedure Growth Status 04/20/25 06:40 Nose MRSA Screen - Final Complete Labs and/or images reviewed: Labs reviewed by me, Image(s) reviewed by me Problem List/Assessment/Plan Problem List/Assessment/Plan Intractable nausea vomiting secondary to migraine episode Likely complex migraine Likely acute stroke Dysphagia probably secondary to above Uncontrolled hypertension Sore throat rule out pharyngitis MRI brain shows 8 mm acute right posterolateral medullary infarct CT angio head and neck shows no acute CT abnormality of major head and neck arterial vasculature Plan: Recommendation: Dr. Sung Given the presentation, examination and laboratory findings, patient's dysphagia, nausea and vomiting appear to be consistent with complex migraine/acute stroke Currently on aspirin 300 mg per rectal, clopidogrel 75 mg, atorvastatin Compazine 10 mg q.4 PRN Continue Protonix 40 mg IV daily Rest of management per primary team Neurology consultation recommended Recommend adequate blood pressure control NPO except ice chips and medications Plan discussed with patient, nurse at bedside in which all questions were answered Case discussed with Dr. Sung Plan discussed with: Patient ZEINAB LAAMS RESIDENT Apr 20, 2025 15:24
--- NOTE | 2025-04-20 15:30 | DVH ---
EXAMINATION: MRI BRAIN HEAD WO CONTRAST INDICATION: Worsening stroke symptoms COMPARISON: CT HEAD WITHOUT CONTRAST on DOS: 04/19/25, CT ANGIO HEAD/NECK on DOS: 04/18/25, MRI BRAIN HEAD WO CONTRAST on DOS: 04/18/25, CT HEAD CONTRAST ONLY on DOS: 04/16/25, CT HEAD WITHOUT CONTRAST on DOS: 04/16/25 TECHNIQUE: Multiplanar, multisequence magnetic resonance imaging of the brain was performed without the use of intravenous contrast. FINDINGS: No significant interval change. Redemonstration of an acute infarct within the right posterolateral medulla. There is associated T2/FLAIR signal hyperintensity. The ventricles and sulci are normal in size for age. Clear basal cisterns. Flow voids in the major intracranial vessels are maintained. No abnormality of the orbits. Paranasal sinuses and mastoid air cells are clear. No abnormality of the visualized osseous structures and extracranial soft tissues. IMPRESSION: 1. No significant interval change. Redemonstration of an acute infarct within the right posterolateral medulla.
[2025-04-20] MEDS: LABETALOL HCL 20 MG/4 ML VL IV PRN (15:56)
--- NOTE | 2025-04-20 17:38 | DVHPN2 ---
Subjective still having vertigo Had new LE weakness and code stroke called Reviewed: H&P Changes from previous H/P or p: No Changes Eyes: No Pain, No Vision change, No Conjunctivae inflammation, No Eyelid inflammation, No Other, No Redness ENT: No Ear pain, No Ear discharge, No Nose pain, No Nose discharge, No Nose congestion, No Mouth pain, No Mouth swelling, No Throat pain, No Throat swelling; Other (Tinnitus bilateral ear) Cardiovascular: No Chest Pain, No Palpitations, No Orthopnea, No Paroxysmal Noc. Dyspnea, No Edema, No Lt Headedness, No Other Respiratory: No Cough, No Dry, No Shortness of breath, No SOB with excertion, No Wheezing, No Hemoptysis, No Pleuritic Pain, No Sputum, No Other Gastrointestinal: Nausea, Vomiting; No Abdominal Pain, No Diarrhea, No Constipation, No Melena, No Hematochezia, No Other Genitourinary: No Dysuria, No Frequency, No Incontinence, No Hematuria, No Retention, No Other Musculoskeletal: No other, No neck pain, No shoulder pain, No arm pain, No back pain, No hand pain, No leg pain, No foot pain Skin: No Rash, No Lesions, No Jaundice, No Bruising, No Other Objective Vitals Vital Signs Date Time Temp Pulse Resp B/P (MAP) Pulse Ox O2 Delivery O2 Flow Rate FiO2 04/20/25 16:00 81 04/20/25 15:56 174/101 04/20/25 08:30 12 97 04/20/25 05:55 Room Air* 0 21 04/20/25 05:00 98.1 98.1 Intake/Output Intake and Output 04/20/25 05:00 Intake Total 150 ml Output Total 0 ml Balance 150 ml Intake Oral 150 ml Stool Total 0 ml # Voids 7 General Appearance: Alert, Oriented X3 Lungs: Clear to auscultation Cardiovascular: Regular rate, Normal S1, Normal S2 Abdomen: Normal bowel sounds Musculoskeletal: Other (Left sided weaknes) Medications Current Medications Medications Dose Ordered Sig/Edouard Route Start Time Stop Time Status Last Admin Dose Admin Ondansetron HCl 4 mg Q4HP PRN IV 04/16/25 04:45 Hold 04/17/25 18:42 4 MG Enoxaparin Sodium 40 mg DAILY SC 04/16/25 10:00 04/20/25 09:10 40 MG Nitroglycerin 0.4 mg Q5MINP PRN SL 04/16/25 04:45 Morphine Sulfate 2 mg Q30M PRN IV 04/16/25 05:00 Meclizine HCl 25 mg Q8HR PO 04/16/25 06:00 04/16/25 06:07 25 MG Acetaminophen 650 mg Q6HP PRN PO 04/16/25 05:30 04/17/25 01:44 650 MG Prochlorperazine Edisylate 10 mg Q4HPRN PRN IV 04/18/25 12:00 04/19/25 23:30 10 MG Pantoprazole Sodium 40 mg DAILY IV 04/19/25 10:00 04/20/25 09:08 40 MG Clopidogrel Bisulfate 75 mg DAILY PO 04/20/25 10:00 Atorvastatin Calcium 40 mg HS PO 04/19/25 22:00 Labetalol HCl 10 mg Q2HPRN PRN IV 04/19/25 17:45 04/20/25 15:56 10 MG Aspirin 300 mg DAILY OK 04/20/25 10:00 04/20/25 10:11 300 MG Sodium Chloride 1,000 ml @ 80 mls/hr [id number] IV 04/20/25 00:00 04/20/25 12:30 80 MLS/HR Laboratory Results Laboratory Tests 04/20/25 05:12 Chemistry Test 04/20/25 05:12 Albumin 3.7 g/dL (3.2-4.8) Calcium Level 8.7 mg/dL (8.7-10.4) Total Protein 6.6 g/dL (5.7-8.2) LFT Test 04/20/25 05:12 Alanine Aminotransferase (ALT) < 9 U/L (7-40) Alkaline Phosphatase 68 U/L (46-116) Aspartate Amino Transferase (AST) 14 U/L (13-40) Total Bilirubin 1.1 mg/dL (0.2-1.0) H Urinalysis Test 04/17/25 16:38 Urine Color Yellow (Yellow) Urine Clarity Clear (Clear) Urine pH 6.0 (5.0-9.0) Urine Specific [place] 1.036 (1.001-1.035) Urine Protein Trace (Negative) H Urine Ketones 3+ (Negative) H Urine Blood Trace /uL (Negative) H Urine Nitrite Negative (Negative) Urine Bilirubin Negative (Negative) Urine Urobilinogen Normal mg/dL (Negative) Urine Leukocyte Esterase Negative /uL (Negative) Urine RBC 4 /hpf (0 - 4) Urine Microscopic WBC 3 /HPF (0-5) Urine Squamous Epithelial Cells Few /hpf (<5) Urine Bacteria None seen /hpf (None Seen) Urine Mucus Few (None Seen) Urine Glucose Normal mg/dL (Normal) Urine Test Negative (Negative) Microbiology Microbiology Date/Time Source Procedure Growth Status 04/20/25 06:40 Nose MRSA Screen - Final Complete Assessment/Plan Assessment/Plan 54-year-old female with a known history of hypertension, chronic migraine presented to the hospital with a nausea and vomiting dizziness and vertigo found to have #Acute ischemic stroke MRI showed acute stroke 8 mm acute right posterolateral medullary infarct. New weakness on 04/19 Evolving new infarct Continue aspirin, statin Neurology consulted PT eval Plan discussed with: Patient Date of Service: Apr 20, 2025 Billing Provider: ZAKI SANCHES MD Common Visit Codes: [id number] INP/OBS CARE(HIGH) ZAKI SANCHES MD Apr 20, 2025 17:38
[2025-04-21] VITALS (95 sets, daily range): BP systolic 118–172; BP diastolic 62–109; PULSE 58–111; RESP 10–26; TEMP 98.4–99; O2SAT 93–97
[2025-04-21 04:34] LABS: Hematocrit 38.4 % (36.0-46.0); Hemoglobin 13.0 g/dL (12.2-16.2); Mean Corpuscular Hemoglobin 32.3 pg (28.0-32.0); Mean Corpuscular Volume 95.5 fL (80.0-100.0); Nucleated Red Blood Cells % 0.1 %
[2025-04-21 04:40] LABS: Alkaline Phosphatase 67 U/L (46-116); Anion Gap 15 (5-15); BUN/Creatinine Ratio 25.9 (10.0-20.0); Blood Urea Nitrogen 14 mg/dL (9-23); Glucose 76 mg/dL (74-106); Sodium 140 mmol/L (136-145); Total Protein 6.3 g/dL (5.7-8.2)
[2025-04-21 04:41] LABS: Albumin 3.4 g/dL (3.2-4.8); Bilirubin, Total 1.2 mg/dL (0.2-1.0)
[2025-04-21 04:50] LABS: Alanine Aminotransferase < 9 U/L (7-40); Calcium 8.4 mg/dL (8.7-10.4); Carbon Dioxide 18 mmol/L (20-31); Chloride 107 mmol/L (98-107); Potassium 3.3 mmol/L (3.5-5.1)
[2025-04-21] MEDS: POTASSIUM CHL 20MEQ/100ML 100 ML IV ONE (06:02)
--- NOTE | 2025-04-21 09:13 | DVHPN2 ---
Progress Note - Dictate Date Seen: Apr 21, 2025 Medical Necessity Reason Pt with a Central, PICC or Fol: No Subjective Ms. Gamboa is a 54 years old right-handed female with a history of hypertension, she came to the [facility] on 04/15/2025 with a chief company of dizziness. I have seen and examined the patient in the ICU I have talked to her nurse. She is doing better, awake oriented x3, her voice stronger, moves the arms and legs Her mouth dry, I do not see pooled saliva UDS, 04/17/2025: Negative Urinalysis, 04/17/2025: Unremarkable CBC 04/19/25: ok Na, 04/16/25: 141. 04/19/25: 150 Bun/Cr 04/19/25: 36/0.75 HCO3 04/19/25: 17 LFT 04/19/25: ok TG/HDL/LDL/HDL, 04/16/2025: 69/224/129/83 Vitamin B12, 04/16/25: 472 TSH, 04/16/2025: 0.1 CT head, 04/16/25: No acute intracranial abnormality. CT head, 04/19/2025: 1. Evolving acute infarct within the right medulla, better delineated on recent MRI. 2. No acute intracranial hemorrhage CTA head, neck, 04/18/2025: No acute CTA abnormality of the major head and neck arterial vasculature MRI head, 04/17/2025: 8 mm acute right posterolateral medullary infarct MRI head, 04/20/2025: No significant interval change. Redemonstration of an acute infarct within the right posterolateral medulla. vital signs Vital Sign Date Time Temp Pulse Resp B/P (MAP) Pulse Ox O2 Delivery O2 Flow Rate FiO2 04/21/25 08:00 68 04/21/25 07:00 14 140/93 (109) 97 04/21/25 04:00 98.4 98.4 04/20/25 20:00 Room Air* 0 21 Total Intake and Output 04/20/25 04/20/25 04/21/25 15:00 23:00 07:00 Intake Total 740 ml 640 ml 690 ml Output Total 900 ml 900 ml Balance 740 ml -260 ml -210 ml medications Current Medications Medications Dose Ordered Sig/Edouard Route Start Time Stop Time Status Last Admin Dose Admin Ondansetron HCl 4 mg Q4HP PRN IV 04/16/25 04:45 Hold 04/17/25 18:42 4 MG Enoxaparin Sodium 40 mg DAILY SC 04/16/25 10:00 04/20/25 09:10 40 MG Nitroglycerin 0.4 mg Q5MINP PRN SL 04/16/25 04:45 Morphine Sulfate 2 mg Q30M PRN IV 04/16/25 05:00 Meclizine HCl 25 mg Q8HR PO 04/16/25 06:00 04/16/25 06:07 25 MG Acetaminophen 650 mg Q6HP PRN PO 04/16/25 05:30 04/17/25 01:44 650 MG Prochlorperazine Edisylate 10 mg Q4HPRN PRN IV 04/18/25 12:00 04/20/25 23:29 10 MG Pantoprazole Sodium 40 mg DAILY IV 04/19/25 10:00 04/20/25 09:08 40 MG Clopidogrel Bisulfate 75 mg DAILY PO 04/20/25 10:00 Atorvastatin Calcium 40 mg HS PO 04/19/25 22:00 Labetalol HCl 10 mg Q2HPRN PRN IV 04/19/25 17:45 04/20/25 20:09 10 MG Aspirin 300 mg DAILY OH 04/20/25 10:00 04/20/25 10:11 300 MG Sodium Chloride 1,000 ml @ 80 mls/hr [id number] IV 04/20/25 00:00 04/21/25 00:03 80 MLS/HR objective General: the patient is well developed and nourished. No acute distress. MENTAL STATUS: Awake and alert. Oriented to person, place, time SPEECH, LANGUAGE, HIGHER CORTICAL FUNCTION: no aphasia, he whispers with reasonably clear voice. CRANIAL NERVES: Pupils are equal, round and reactive, 1-2 mm. EOMs full and conjugate. No nystagmus. Facial sensation intact in all three divisions bilaterally. Mandibular strength intact. Facial muscles symmetrical and strength intact. Tongue midline. No fasciculations or atrophy. SENSATION: Sensation to touch and pinprick is normal. MOTOR: Normal tone in the upper and lower extremity. Normal muscle bulk. No fasciculations. No abnormal movements or posturing. Muscle strength of the major groups in the upper extremities is 4/5 with possible right drift. Muscle strength of the major groups in the lower extremities is 5/5. REFLEXES: Deep tendon reflexes are symmetrical. No pathological reflexes. CEREBELLAR/COORDINATION: Finger to nose showed mild intentional tremor in the right upper extremity GAIT/STATION: deferred. laboratory and microbiology Laboratory Tests 04/21/25 03:57 Test 04/21/25 03:57 Range/Units Serum Glucose 76 74-106 mg/dL Problem List Acute medulla oblongata stroke Dysphagia Vertigo Right hemiparesis Gait disturbance Speech pathology evaluation Assessment/Plan Monitoring Supportive treatment SIDNEY Aspirin 300 mg suppository Stabilize blood pressure Lipitor 40 mg daily later DVT prophylaxis GI prophylaxis Speech pathology evaluation Consider physical therapy later More recommendation per clinical course Okay to transferred to telemetry from neurologic point of view This medical document was created using an electronic medical record system with [employer] dictation system. Although this document has been carefully reviewed, there may still be some phonetic and typographical errors. These areas are purely typographical due to imperfections of the software programs, and do not reflect any compromise in the patient's medical care. Prognosis poor Plan discussed with: Patient, Other HERNAN HOLT MD Apr 21, 2025 09:13
--- NOTE | 2025-04-21 11:43 | DVHPN2 ---
Progress Note Date Seen: Apr 21, 2025 Resident Creating Document: ZEINAB LAMAS RESIDENT Medical Necessity Reason Pt with a Central, PICC or Fol: No Subjective Review of Systems Patient seen and examined, repeat MRI shows no significant interval change. Redemonstration of acute infarct within right posterolateral medulla. Persistent dysphagia and hoarse voice noted, failed bedside RN swallow eval. No facial asymmetry noted. Place NG and enteral feeding recommended Objective vital signs Vital Sign Date Time Temp Pulse Resp B/P (MAP) Pulse Ox O2 Delivery O2 Flow Rate FiO2 04/21/25 08:00 68 15 Room Air* 0 21 04/21/25 07:00 140/93 (109) 97 04/21/25 04:00 98.4 98.4 Total Intake and Output 04/20/25 04/20/25 04/21/25 15:00 23:00 07:00 Intake Total 740 ml 640 ml 690 ml Output Total 900 ml 900 ml Balance 740 ml -260 ml -210 ml medications Current Medications Medications Dose Ordered Sig/Edouard Route Start Time Stop Time Status Last Admin Dose Admin Ondansetron HCl 4 mg Q4HP PRN IV 04/16/25 04:45 Hold 04/17/25 18:42 4 MG Enoxaparin Sodium 40 mg DAILY SC 04/16/25 10:00 04/21/25 10:00 40 MG Nitroglycerin 0.4 mg Q5MINP PRN SL 04/16/25 04:45 Morphine Sulfate 2 mg Q30M PRN IV 04/16/25 05:00 Meclizine HCl 25 mg Q8HR PO 04/16/25 06:00 04/16/25 06:07 25 MG Acetaminophen 650 mg Q6HP PRN PO 04/16/25 05:30 04/17/25 01:44 650 MG Prochlorperazine Edisylate 10 mg Q4HPRN PRN IV 04/18/25 12:00 04/20/25 23:29 10 MG Pantoprazole Sodium 40 mg DAILY IV 04/19/25 10:00 04/21/25 10:00 40 MG Clopidogrel Bisulfate 75 mg DAILY PO 04/20/25 10:00 Atorvastatin Calcium 40 mg HS PO 04/19/25 22:00 Labetalol HCl 10 mg Q2HPRN PRN IV 04/19/25 17:45 04/20/25 20:09 10 MG Aspirin 300 mg DAILY LA 04/20/25 10:00 04/21/25 10:00 300 MG Sodium Chloride 1,000 ml @ 80 mls/hr [id number] IV 04/20/25 00:00 04/21/25 00:03 80 MLS/HR Examination Patient lying in bed, in no acute distress General: Well-built, afebrile, palor, mucosae are moist Cardiovascular: Regular S1 and S2. No murmurs, gallops or rubs. No JVD elevation. No pedal edema Respiratory: Normal B/L air entry on room air. Clear lung sounds on auscultation Abdomen: Soft, nontender, nondistended, normoactive bowel sounds, no rebound tenderness, no organomegaly, no masses Genitourinary: Deferred Psych/Mental Status: A/Ox3 laboratory and microbiology Laboratory Tests 04/21/25 03:57 Test 04/21/25 03:57 Range/Units Serum Glucose 76 74-106 mg/dL Microbiology Date/Time Source Procedure Growth Status 04/20/25 06:40 Nose MRSA Screen - Final Complete Labs and/or images reviewed: Labs reviewed by me, Image(s) reviewed by me Problem List/Assessment/Plan Problem List/Assessment/Plan Intractable nausea vomiting secondary to migraine episode Likely complex migraine Likely acute stroke Dysphagia probably secondary to above Uncontrolled hypertension Sore throat rule out pharyngitis MRI brain shows 8 mm acute right posterolateral medullary infarct CT angio head and neck shows no acute CT abnormality of major head and neck arterial vasculature Plan: Recommendation: Dr. Sung Given the presentation, examination and laboratory findings, patient's dysphagia, nausea and vomiting appear to be consistent with complex migraine/acute stroke Recommend NG placement and enteral feeding Continue swallow evaluations Currently on aspirin 300 mg per rectal, clopidogrel 75 mg, atorvastatin Compazine 10 mg q.4 PRN Continue Protonix 40 mg IV daily Rest of management per primary team Neurology consultation recommended Recommend adequate blood pressure control NPO except ice chips and medications Plan discussed with patient, nurse at bedside in which all questions were answered Case discussed with Dr. Sung Plan discussed with: Patient My Orders My Orders Orders - ZEINAB LAMAS Procedure Category Date Status Time Npo Except For HEMAL 04/20/25 In Process Medications 15:23 Npo Except Ice Chips HEMAL 04/20/25 In Process 15:23 Npo (Nothing By DIET 04/20/25 Transmitted Mouth) Diet Dinner ZEINAB LAMAS RESIDENT Apr 21, 2025 11:43
[2025-04-21] MEDS: hydrALAZINE HCL 20 MG/ML VL IV ONE (12:00)
--- NOTE | 2025-04-21 13:10 | DVHPN2 ---
Subjective still having vertigo LE extremities weakness better Reviewed: H&P Changes from previous H/P or p: No Changes Eyes: No Pain, No Vision change, No Conjunctivae inflammation, No Eyelid inflammation, No Other, No Redness ENT: No Ear pain, No Ear discharge, No Nose pain, No Nose discharge, No Nose congestion, No Mouth pain, No Mouth swelling, No Throat pain, No Throat swelling; Other (Tinnitus bilateral ear) Cardiovascular: No Chest Pain, No Palpitations, No Orthopnea, No Paroxysmal Noc. Dyspnea, No Edema, No Lt Headedness, No Other Respiratory: No Cough, No Dry, No Shortness of breath, No SOB with excertion, No Wheezing, No Hemoptysis, No Pleuritic Pain, No Sputum, No Other Gastrointestinal: Nausea, Vomiting; No Abdominal Pain, No Diarrhea, No Constipation, No Melena, No Hematochezia, No Other Genitourinary: No Dysuria, No Frequency, No Incontinence, No Hematuria, No Retention, No Other Musculoskeletal: No other, No neck pain, No shoulder pain, No arm pain, No back pain, No hand pain, No leg pain, No foot pain Skin: No Rash, No Lesions, No Jaundice, No Bruising, No Other Objective Vitals Vital Signs Date Time Temp Pulse Resp B/P (MAP) Pulse Ox O2 Delivery O2 Flow Rate FiO2 04/21/25 12:00 169/100 04/21/25 10:47 97 Room Air* 0 21 04/21/25 08:00 68 15 04/21/25 04:00 98.4 98.4 Intake/Output Intake and Output 04/21/25 07:00 Intake Total 2070 ml Output Total 1800 ml Balance 270 ml Intake Oral 0 ml IV Total 2070 ml Output Urine Total 1800 ml # Voids 5 General Appearance: Alert, Oriented X3 Lungs: Clear to auscultation Cardiovascular: Regular rate, Normal S1, Normal S2 Abdomen: Normal bowel sounds Musculoskeletal: Other (LE weakness improved) Medications Current Medications Medications Dose Ordered Sig/Edouard Route Start Time Stop Time Status Last Admin Dose Admin Ondansetron HCl 4 mg Q4HP PRN IV 04/16/25 04:45 Hold 04/17/25 18:42 4 MG Enoxaparin Sodium 40 mg DAILY SC 04/16/25 10:00 04/21/25 10:00 40 MG Nitroglycerin 0.4 mg Q5MINP PRN SL 04/16/25 04:45 Morphine Sulfate 2 mg Q30M PRN IV 04/16/25 05:00 Meclizine HCl 25 mg Q8HR PO 04/16/25 06:00 04/16/25 06:07 25 MG Acetaminophen 650 mg Q6HP PRN PO 04/16/25 05:30 04/17/25 01:44 650 MG Prochlorperazine Edisylate 10 mg Q4HPRN PRN IV 04/18/25 12:00 04/20/25 23:29 10 MG Pantoprazole Sodium 40 mg DAILY IV 04/19/25 10:00 04/21/25 10:00 40 MG Clopidogrel Bisulfate 75 mg DAILY PO 04/20/25 10:00 Atorvastatin Calcium 40 mg HS PO 04/19/25 22:00 Labetalol HCl 10 mg Q2HPRN PRN IV 04/19/25 17:45 04/20/25 20:09 10 MG Aspirin 300 mg DAILY AL 04/20/25 10:00 04/21/25 10:00 300 MG Sodium Chloride 1,000 ml @ 80 mls/hr [id number] IV 04/20/25 00:00 04/21/25 12:26 80 MLS/HR Laboratory Results Laboratory Tests 04/21/25 03:57 Chemistry Test 04/21/25 03:57 Albumin 3.4 g/dL (3.2-4.8) Calcium Level 8.4 mg/dL (8.7-10.4) L Total Protein 6.3 g/dL (5.7-8.2) LFT Test 04/21/25 03:57 Alanine Aminotransferase (ALT) < 9 U/L (7-40) Alkaline Phosphatase 67 U/L (46-116) Aspartate Amino Transferase (AST) 18 U/L (13-40) Total Bilirubin 1.2 mg/dL (0.2-1.0) H Urinalysis Test 04/17/25 16:38 Urine Color Yellow (Yellow) Urine Clarity Clear (Clear) Urine pH 6.0 (5.0-9.0) Urine Specific [place] 1.036 (1.001-1.035) Urine Protein Trace (Negative) H Urine Ketones 3+ (Negative) H Urine Blood Trace /uL (Negative) H Urine Nitrite Negative (Negative) Urine Bilirubin Negative (Negative) Urine Urobilinogen Normal mg/dL (Negative) Urine Leukocyte Esterase Negative /uL (Negative) Urine RBC 4 /hpf (0 - 4) Urine Microscopic WBC 3 /HPF (0-5) Urine Squamous Epithelial Cells Few /hpf (<5) Urine Bacteria None seen /hpf (None Seen) Urine Mucus Few (None Seen) Urine Glucose Normal mg/dL (Normal) Urine Test Negative (Negative) Microbiology Microbiology Date/Time Source Procedure Growth Status 04/20/25 06:40 Nose MRSA Screen - Final Complete Assessment/Plan Assessment/Plan 54-year-old female with a known history of hypertension, chronic migraine presented to the hospital with a nausea and vomiting dizziness and vertigo found to have #Acute ischemic stroke MRI showed acute stroke 8 mm acute right posterolateral medullary infarct. New weakness on 04/19 Evolving new infarct Continue aspirin, statin Neurology consulted PT eval Plan discussed with: Patient Date of Service: Apr 21, 2025 Billing Provider: ZAKI SANCHES MD Common Visit Codes: [id number] INP/OBS CARE(HIGH) ZAKI SANCHES MD Apr 21, 2025 13:09
--- NOTE | 2025-04-21 16:56 | DVH ---
CHEST RADIOGRAPH INDICATION: NGT PLACEMENT TECHNIQUE: Single frontal view of the chest was obtained. COMPARISON: XY CHEST XRAY 1 VIEW on DOS: 04/16/25 FINDINGS: Gastric tube with tip in the stomach. No focal consolidation. No significant pleural effusion. No pneumothorax. Stable cardiomediastinal silhouette. IMPRESSION: Gastric tube with tip in the stomach.
[2025-04-22] VITALS (55 sets, daily range): BP systolic 134–191; BP diastolic 62–137; PULSE 65–102; RESP 8–25; TEMP 97.5–99.6; O2SAT 93–98
[2025-04-22 03:27] LABS: Hematocrit 41.2 % (36.0-46.0); Hemoglobin 13.5 g/dL (12.2-16.2); Mean Corpuscular Hemoglobin 32.1 pg (28.0-32.0); Mean Corpuscular Volume 98.0 fL (80.0-100.0); Nucleated Red Blood Cells % 0.3 %
[2025-04-22 05:28] LABS: Anion Gap 16 (5-15); BUN/Creatinine Ratio 23.5 (10.0-20.0)
[2025-04-22 05:30] LABS: Alanine Aminotransferase < 9 U/L (7-40); Albumin 3.6 g/dL (3.2-4.8); Alkaline Phosphatase 72 U/L (46-116); Bilirubin, Total 1.2 mg/dL (0.2-1.0); Blood Urea Nitrogen 12 mg/dL (9-23); Calcium 8.3 mg/dL (8.7-10.4); Carbon Dioxide 17 mmol/L (20-31); Chloride 106 mmol/L (98-107); Glucose 73 mg/dL (74-106); Potassium 3.3 mmol/L (3.5-5.1); Sodium 139 mmol/L (136-145); Total Protein 6.5 g/dL (5.7-8.2)
[2025-04-22] MEDS: POTASSIUM CHL 20MEQ/100ML 100 ML IV ONE ×2 (06:16→12:36)
--- NOTE | 2025-04-22 11:24 | DVHPN2 ---
Progress Note Date Seen: Apr 22, 2025 Resident Creating Document: ZEINAB LAMAS RESIDENT Medical Necessity Reason Pt with a Central, PICC or Fol: No Subjective Review of Systems Reports dysphagia, passing flatus, normoctive bowel, started jevity Objective vital signs Vital Sign Date Time Temp Pulse Resp B/P (MAP) Pulse Ox O2 Delivery O2 Flow Rate FiO2 04/22/25 10:28 85 165/105 04/22/25 07:30 16 97 04/22/25 05:37 Room Air 0.0 04/22/25 05:37 21 04/22/25 00:00 98.5 98.5 Total Intake and Output 04/21/25 04/21/25 04/22/25 15:00 23:00 07:00 Intake Total 640 ml 640 ml 560 ml Output Total 1100 ml Balance 640 ml -460 ml 560 ml medications Current Medications Medications Dose Ordered Sig/Edouard Route Start Time Stop Time Status Last Admin Dose Admin Ondansetron HCl 4 mg Q4HP PRN IV 04/16/25 04:45 Hold 04/17/25 18:42 4 MG Enoxaparin Sodium 40 mg DAILY SC 04/16/25 10:00 04/22/25 10:27 40 MG Nitroglycerin 0.4 mg Q5MINP PRN SL 04/16/25 04:45 Morphine Sulfate 2 mg Q30M PRN IV 04/16/25 05:00 Meclizine HCl 25 mg Q8HR PO 04/16/25 06:00 04/22/25 05:23 25 MG Acetaminophen 650 mg Q6HP PRN PO 04/16/25 05:30 04/17/25 01:44 650 MG Prochlorperazine Edisylate 10 mg Q4HPRN PRN IV 04/18/25 12:00 04/20/25 23:29 10 MG Pantoprazole Sodium 40 mg DAILY IV 04/19/25 10:00 04/22/25 10:26 40 MG Clopidogrel Bisulfate 75 mg DAILY PO 04/20/25 10:00 04/22/25 10:27 75 MG Atorvastatin Calcium 40 mg HS PO 04/19/25 22:00 04/21/25 19:51 40 MG Labetalol HCl 10 mg Q2HPRN PRN IV 04/19/25 17:45 04/22/25 10:28 10 MG Sodium Chloride 1,000 ml @ 80 mls/hr [id number] IV 04/20/25 00:00 04/21/25 23:51 80 MLS/HR Aspirin 325 mg DAILY NG 04/22/25 10:00 04/22/25 10:27 325 MG Enteral Nutritional Formula 1,000 ml 60ML/HR GT 04/22/25 10:45 Examination Patient lying in bed, in no acute distress General: Well-built, afebrile, palor, mucosae are moist Cardiovascular: Regular S1 and S2. No murmurs, gallops or rubs. No JVD elevation. No pedal edema Respiratory: Normal B/L air entry on room air. Clear lung sounds on auscultation Abdomen: Soft, nontender, nondistended, normoactive bowel sounds, no rebound tenderness, no organomegaly, no masses Genitourinary: Deferred Psych/Mental Status: A/Ox3 laboratory and microbiology Laboratory Tests 04/22/25 04:46 04/22/25 02:23 Test 04/22/25 04:46 Range/Units Serum Glucose 73 L 74-106 mg/dL Microbiology Date/Time Source Procedure Growth Status 04/20/25 06:40 Nose MRSA Screen - Final Complete Labs and/or images reviewed: Labs reviewed by me, Image(s) reviewed by me Problem List/Assessment/Plan Problem List/Assessment/Plan Intractable nausea vomiting secondary to migraine episode Likely complex migraine Likely acute stroke Dysphagia probably secondary to above Uncontrolled hypertension Sore throat rule out pharyngitis MRI brain shows 8 mm acute right posterolateral medullary infarct CT angio head and neck shows no acute CT abnormality of major head and neck arterial vasculature Plan: Recommendation: Dr. Sung Given the presentation, examination and laboratory findings, patient's dysphagia, nausea and vomiting appear to be consistent with complex migraine/acute stroke NGT, started Jevity Continue swallow evaluations Currently on aspirin 300 mg per rectal, clopidogrel 75 mg, atorvastatin Compazine 10 mg q.4 PRN Continue Protonix 40 mg IV daily Rest of management per primary team Neurology consultation recommended Recommend adequate blood pressure control NPO except ice chips and medications Plan discussed with patient, nurse at bedside in which all questions were answered Case discussed with Dr. Sung Plan discussed with: Patient My Orders My Orders Orders - ZEINAB LAMAS RESIDENT Procedure Category Date Status Time Ngt/Ogt ED NURSING 04/21/[address] Ng ORDERS 04/21/25 Transmitted 11:43 Communication Order ORDERS 04/21/25 Transmitted 11:43 Consult For Nutrition NOURISH 04/21/25 Transmitted 11:43 Chest Portable XY 04/21/25 Resulted 15:55 Nutritional PHA 04/22/25 In Process Supplements (Jevity 10:45 Potassium Chl PHA 04/22/25 In Process 20meq/100ml 10:45 Dietary Evaluation Review Comments: 1. Advance to Soft, texture as tolerated Cardiac diet once passoing WEL[employer] eval 2. Consider Tube feeding Jevity @50ml/hr providing 67g Protein 1440kcal if serum glucose remain WNL and PO feeding not medically feasible. Expected Outcomes/Goals: resoloved dysphagia ZEINAB LAMAS RESIDENT Apr 22, 2025 11:24
--- NOTE | 2025-04-22 17:13 | DVHPN2 ---
Subjective still having vertigo LE extremities weakness better Reviewed: H&P Changes from previous H/P or p: No Changes Eyes: No Pain, No Vision change, No Conjunctivae inflammation, No Eyelid inflammation, No Other, No Redness ENT: No Ear pain, No Ear discharge, No Nose pain, No Nose discharge, No Nose congestion, No Mouth pain, No Mouth swelling, No Throat pain, No Throat swelling; Other (Tinnitus bilateral ear) Cardiovascular: No Chest Pain, No Palpitations, No Orthopnea, No Paroxysmal Noc. Dyspnea, No Edema, No Lt Headedness, No Other Respiratory: No Cough, No Dry, No Shortness of breath, No SOB with excertion, No Wheezing, No Hemoptysis, No Pleuritic Pain, No Sputum, No Other Gastrointestinal: Nausea, Vomiting; No Abdominal Pain, No Diarrhea, No Constipation, No Melena, No Hematochezia, No Other Genitourinary: No Dysuria, No Frequency, No Incontinence, No Hematuria, No Retention, No Other Musculoskeletal: No other, No neck pain, No shoulder pain, No arm pain, No back pain, No hand pain, No leg pain, No foot pain Skin: No Rash, No Lesions, No Jaundice, No Bruising, No Other Objective Vitals Vital Signs Date Time Temp Pulse Resp B/P (MAP) Pulse Ox O2 Delivery O2 Flow Rate FiO2 04/22/25 14:13 74 04/22/25 14:00 18 154/101 (118) 97 04/22/25 12:00 98.8 98.8 04/22/25 08:00 Room Air* 0 21 Intake/Output Intake and Output 04/22/25 05:00 Intake Total 1970 ml Output Total 1100 ml Balance 870 ml Intake Oral 0 ml IV Total 1970 ml Output Urine Total 1100 ml # Voids 10 General Appearance: Alert, Oriented X3 Lungs: Clear to auscultation Cardiovascular: Regular rate, Normal S1, Normal S2 Abdomen: Normal bowel sounds Musculoskeletal: Other (LE weakness improved) Medications Current Medications Medications Dose Ordered Sig/Edouard Route Start Time Stop Time Status Last Admin Dose Admin Ondansetron HCl 4 mg Q4HP PRN IV 04/16/25 04:45 Hold 04/17/25 18:42 4 MG Enoxaparin Sodium 40 mg DAILY SC 04/16/25 10:00 04/22/25 10:27 40 MG Nitroglycerin 0.4 mg Q5MINP PRN SL 04/16/25 04:45 Morphine Sulfate 2 mg Q30M PRN IV 04/16/25 05:00 Meclizine HCl 25 mg Q8HR PO 04/16/25 06:00 04/22/25 12:43 25 MG Acetaminophen 650 mg Q6HP PRN PO 04/16/25 05:30 04/17/25 01:44 650 MG Prochlorperazine Edisylate 10 mg Q4HPRN PRN IV 04/18/25 12:00 04/20/25 23:29 10 MG Pantoprazole Sodium 40 mg DAILY IV 04/19/25 10:00 04/22/25 10:26 40 MG Clopidogrel Bisulfate 75 mg DAILY PO 04/20/25 10:00 04/22/25 10:27 75 MG Atorvastatin Calcium 40 mg HS PO 04/19/25 22:00 04/21/25 19:51 40 MG Labetalol HCl 10 mg Q2HPRN PRN IV 04/19/25 17:45 04/22/25 10:28 10 MG Sodium Chloride 1,000 ml @ 80 mls/hr [id number] IV 04/20/25 00:00 04/22/25 12:28 80 MLS/HR Aspirin 325 mg DAILY NG 04/22/25 10:00 04/22/25 10:27 325 MG Enteral Nutritional Formula 1,000 ml 60ML/HR GT 04/22/25 10:45 Amlodipine Besylate 10 mg DAILY PO 04/23/25 10:00 Laboratory Results Laboratory Tests 04/22/25 02:23 04/22/25 04:46 Chemistry Test 04/22/25 04:46 Albumin 3.6 g/dL (3.2-4.8) Calcium Level 8.3 mg/dL (8.7-10.4) L Total Protein 6.5 g/dL (5.7-8.2) LFT Test 04/22/25 04:46 Alanine Aminotransferase (ALT) < 9 U/L (7-40) Alkaline Phosphatase 72 U/L (46-116) Aspartate Amino Transferase (AST) 13 U/L (13-40) Total Bilirubin 1.2 mg/dL (0.2-1.0) H Urinalysis Test 04/17/25 16:38 Urine Color Yellow (Yellow) Urine Clarity Clear (Clear) Urine pH 6.0 (5.0-9.0) Urine Specific [place] 1.036 (1.001-1.035) Urine Protein Trace (Negative) H Urine Ketones 3+ (Negative) H Urine Blood Trace /uL (Negative) H Urine Nitrite Negative (Negative) Urine Bilirubin Negative (Negative) Urine Urobilinogen Normal mg/dL (Negative) Urine Leukocyte Esterase Negative /uL (Negative) Urine RBC 4 /hpf (0 - 4) Urine Microscopic WBC 3 /HPF (0-5) Urine Squamous Epithelial Cells Few /hpf (<5) Urine Bacteria None seen /hpf (None Seen) Urine Mucus Few (None Seen) Urine Glucose Normal mg/dL (Normal) Urine Test Negative (Negative) Microbiology Microbiology Date/Time Source Procedure Growth Status 04/20/25 06:40 Nose MRSA Screen - Final Complete Assessment/Plan Assessment/Plan 54-year-old female with a known history of hypertension, chronic migraine presented to the hospital with a nausea and vomiting dizziness and vertigo found to have #Acute ischemic stroke MRI showed acute stroke 8 mm acute right posterolateral medullary infarct. New weakness on 04/19 Evolving new infarct Continue aspirin, statin Neurology consulted PT eval Plan discussed with: Patient My Orders Orders - ZAKI SANCHES MD Procedure Category Date Status Time Transfer Orders XFER 04/22/25 Transmitted 11:44 Amlodipine Tablet PHA 04/23/25 In Process (Norvasc Tablet) 10:00 Date of Service: Apr 22, 2025 Billing Provider: ZAKI SANCHES MD Common Visit Codes: [id number] INP/OBS CARE(HIGH) ZAIK SANCHES MD Apr 22, 2025 17:12
--- NOTE | 2025-04-22 21:03 | DVHPN2 ---
Progress Note - Dictate Date Seen: Apr 22, 2025 Medical Necessity Reason Pt with a Central, PICC or Fol: No Subjective Ms. Gamboa is a 54 years old right-handed female with a history of hypertension, she came to the [facility] on 04/15/2025 with a chief company of dizziness. I have seen and examined the patient talked to her nurse. Her in the room. Per my observation, she is doing better, voice is weak but is stronger and clear, alert and oriented x3 She complaints of numbness and weakness in the right upper extremity, but without drift on physical examination She reports a history of migraine headache (intense headache with sensitivity to lights, noise) for more than 20 years, she typically have intense headache once or twice monthly, and headache last for 1-2 days. Since , she has been having constant progressive bad headache. Typically she takes [id number] medication for headache control UDS, 04/17/2025: Negative Urinalysis, 04/17/2025: Unremarkable CBC 04/19/25: ok Na, 04/16/25: 141. 04/19/25: 150 Bun/Cr 04/19/25: 36/0.75 HCO3 04/19/25: 17 LFT 04/19/25: ok TG/HDL/LDL/HDL, 04/16/2025: 69/224/129/83 Vitamin B12, 04/16/25: 472 TSH, 04/16/2025: 0.1 CT head, 04/16/25: No acute intracranial abnormality. CT head, 04/19/2025: 1. Evolving acute infarct within the right medulla, better delineated on recent MRI. 2. No acute intracranial hemorrhage CTA head, neck, 04/18/2025: No acute CTA abnormality of the major head and neck arterial vasculature MRI head, 04/17/2025: 8 mm acute right posterolateral medullary infarct MRI head, 04/20/2025: No significant interval change. Redemonstration of an acute infarct within the right posterolateral medulla. vital signs Vital Sign Date Time Temp Pulse Resp B/P (MAP) Pulse Ox O2 Delivery O2 Flow Rate FiO2 04/22/25 17:00 98.5 77 18 135/85 (102) 98 98.5 04/22/25 08:00 Room Air* 0 21 Total Intake and Output 04/21/25 04/21/25 04/22/25 15:00 23:00 07:00 Intake Total 640 ml 640 ml 640 ml Output Total 1100 ml Balance 640 ml -460 ml 640 ml medications Current Medications Medications Dose Ordered Sig/Edouard Route Start Time Stop Time Status Last Admin Dose Admin Ondansetron HCl 4 mg Q4HP PRN IV 04/16/25 04:45 Hold 04/17/25 18:42 4 MG Enoxaparin Sodium 40 mg DAILY SC 04/16/25 10:00 04/22/25 10:27 40 MG Nitroglycerin 0.4 mg Q5MINP PRN SL 04/16/25 04:45 Morphine Sulfate 2 mg Q30M PRN IV 04/16/25 05:00 Meclizine HCl 25 mg Q8HR PO 04/16/25 06:00 04/22/25 12:43 25 MG Acetaminophen 650 mg Q6HP PRN PO 04/16/25 05:30 04/17/25 01:44 650 MG Prochlorperazine Edisylate 10 mg Q4HPRN PRN IV 04/18/25 12:00 04/20/25 23:29 10 MG Pantoprazole Sodium 40 mg DAILY IV 04/19/25 10:00 04/22/25 10:26 40 MG Clopidogrel Bisulfate 75 mg DAILY PO 04/20/25 10:00 04/22/25 10:27 75 MG Atorvastatin Calcium 40 mg HS PO 04/19/25 22:00 04/21/25 19:51 40 MG Labetalol HCl 10 mg Q2HPRN PRN IV 04/19/25 17:45 04/22/25 10:28 10 MG Sodium Chloride 1,000 ml @ 80 mls/hr [id number] IV 04/20/25 00:00 04/22/25 12:28 80 MLS/HR Aspirin 325 mg DAILY NG 04/22/25 10:00 04/22/25 10:27 325 MG Enteral Nutritional Formula 1,000 ml 60ML/HR GT 04/22/25 10:45 Amlodipine Besylate 10 mg DAILY PO 04/23/25 10:00 objective General: the patient is well developed and nourished. No acute distress. MENTAL STATUS: Awake and alert. Oriented to person, place, time SPEECH, LANGUAGE, HIGHER CORTICAL FUNCTION: no aphasia, he whispers with reasonably clear voice. CRANIAL NERVES: Pupils are equal, round and reactive, 2 mm. EOMs full and conjugate. No nystagmus. Diminished pinprick and light touch in the right face. Mandibular strength intact. Facial muscles symmetrical and strength intact. Tongue midline. No fasciculations or atrophy. SENSATION: Sensation to touch and pinprick is diminished in the right arm MOTOR: Normal tone in the upper and lower extremity. Normal muscle bulk. No fasciculations. No abnormal movements or posturing. Muscle strength of the major groups in the upper extremities is 4/5 with the right arm weaker, but without drift. Muscle strength of the major groups in the lower extremities is 5/5. REFLEXES: Deep tendon reflexes are symmetrical. No pathological reflexes. CEREBELLAR/COORDINATION: Finger to nose is unremarkable GAIT/STATION: deferred. laboratory and microbiology Laboratory Tests 04/22/25 04:46 04/22/25 02:23 Test 04/22/25 04:46 Range/Units Serum Glucose 73 L 74-106 mg/dL Problem List Acute medulla oblongata stroke Dysphagia Vertigo Right hemiparesis Gait disturbance Right arm weakness and numbness (without drift) Acute Headache since Migraine headache Assessment/Plan Monitoring Supportive treatment Telemetry Aspirin 81 mg daily Stabilize blood pressure Lipitor 40 mg daily later Current pain management DVT prophylaxis GI prophylaxis Avoid Triptan and ergot agents (discussed with her and her ) Speech pathology evaluation Consider physical therapy later More recommendation per clinical course This medical document was created using an electronic medical record system with [email or web address] dictation system. Although this document has been carefully reviewed, there may still be some phonetic and typographical errors. These areas are purely typographical due to imperfections of the software programs, and do not reflect any compromise in the patient's medical care. Prognosis poor Dietary Evaluation Review Comments: 1. Advance to Soft, texture as tolerated Cardiac diet once passoing [employer] eval 2. Consider Tube feeding Jevity @50ml/hr providing 67g Protein 1440kcal if serum glucose remain WNL and PO feeding not medically feasible. Expected Outcomes/Goals: resoloved dysphagia Plan discussed with: Patient, Spouse, Other HERNAN HOLT MD Apr 22, 2025 21:03
[2025-04-22] MEDS: ACETAMINOPHEN IV 1000 MG/100ML (10MG/ML) IV ONE (21:15)
[2025-04-22] MEDS: ATORVASTATIN 20 MG TAB NG SCH (23:24)
[2025-04-23] VITALS (10 sets, daily range): BP systolic 128–149; BP diastolic 91–116; PULSE 78–100; RESP 17–19; TEMP 97.9–98.5; O2SAT 81–99
[2025-04-23] MEDS: CLOPIDOGREL BISULFATE 75 MG TAB NG SCH (09:46)
--- NOTE | 2025-04-23 11:25 | DVHPN2 ---
Progress Note Date Seen: Apr 23, 2025 Resident Creating Document: ZEINAB LAMAS RESIDENT Medical Necessity Reason Pt with a Central, PICC or Fol: No Subjective Review of Systems Reports feeling better, denies vomiting. On tube feedings Objective vital signs Vital Sign Date Time Temp Pulse Resp B/P (MAP) Pulse Ox O2 Delivery O2 Flow Rate FiO2 04/23/25 09:48 143/116 04/23/25 09:20 99 Room Air 0.0 04/23/25 09:20 21 04/23/25 08:00 100 18 04/23/25 05:22 98.0 98.0 Total Intake and Output 04/22/25 04/22/25 04/23/25 15:00 23:00 07:00 Intake Total 735 ml 0 ml 0 ml Balance 735 ml 0 ml 0 ml medications Current Medications Medications Dose Ordered Sig/Edouard Route Start Time Stop Time Status Last Admin Dose Admin Ondansetron HCl 4 mg Q4HP PRN IV 04/16/25 04:45 Hold 04/17/25 18:42 4 MG Enoxaparin Sodium 40 mg DAILY SC 04/16/25 10:00 04/23/25 09:49 40 MG Nitroglycerin 0.4 mg Q5MINP PRN SL 04/16/25 04:45 Morphine Sulfate 2 mg Q30M PRN IV 04/16/25 05:00 Meclizine HCl 25 mg Q8HR PO 04/16/25 06:00 04/22/25 12:43 25 MG Acetaminophen 650 mg Q6HP PRN PO 04/16/25 05:30 04/22/25 23:34 650 MG Prochlorperazine Edisylate 10 mg Q4HPRN PRN IV 04/18/25 12:00 04/23/25 07:26 10 MG Pantoprazole Sodium 40 mg DAILY IV 04/19/25 10:00 04/23/25 09:49 40 MG Labetalol HCl 10 mg Q2HPRN PRN IV 04/19/25 17:45 04/22/25 10:28 10 MG Sodium Chloride 1,000 ml @ 80 mls/hr [id number] IV 04/20/25 00:00 04/23/25 02:30 80 MLS/HR Aspirin 325 mg DAILY NG 04/22/25 10:00 04/23/25 09:48 325 MG Enteral Nutritional Formula 1,000 ml 60ML/HR GT 04/22/25 10:45 Amlodipine Besylate 10 mg DAILY NG 04/23/25 10:00 04/23/25 09:48 10 MG Atorvastatin Calcium 40 mg HS NG 04/22/25 23:15 04/22/25 23:24 40 MG Clopidogrel Bisulfate 75 mg DAILY NG 04/23/25 10:00 04/23/25 09:46 75 MG Examination Patient lying in bed, in no acute distress General: Well-built, afebrile, palor, mucosae are moist Cardiovascular: Regular S1 and S2. No murmurs, gallops or rubs. No JVD elevation. No pedal edema Respiratory: Normal B/L air entry on room air. Clear lung sounds on auscultation Abdomen: Soft, nontender, nondistended, normoactive bowel sounds, no rebound tenderness, no organomegaly, no masses Genitourinary: Deferred Psych/Mental Status: A/Ox3 laboratory and microbiology Laboratory Tests 04/22/25 04:46 04/22/25 02:23 Test 04/22/25 04:46 Range/Units Serum Glucose 73 L 74-106 mg/dL Microbiology Date/Time Source Procedure Growth Status 04/20/25 06:40 Nose MRSA Screen - Final Complete Labs and/or images reviewed: Labs reviewed by me, Image(s) reviewed by me Problem List/Assessment/Plan Problem List/Assessment/Plan Intractable nausea vomiting secondary to migraine episode Likely complex migraine Likely acute stroke Dysphagia probably secondary to above Uncontrolled hypertension Sore throat rule out pharyngitis MRI brain shows 8 mm acute right posterolateral medullary infarct CT angio head and neck shows no acute CT abnormality of major head and neck arterial vasculature Plan: Recommendation: Dr. Sung Given the presentation, examination and laboratory findings, patient's dysphagia, nausea and vomiting appear to be consistent with complex migraine/acute stroke NGT, continue Jevity. Increase the rate as per infrastructure software engineer recommendations. Continue swallow evaluations Currently on aspirin 300 mg per rectal, clopidogrel 75 mg, atorvastatin Compazine 10 mg q.4 PRN Continue Protonix 40 mg IV daily Rest of management per primary team Neurology consultation recommended Recommend adequate blood pressure control NPO except ice chips and medications Plan discussed with patient, nurse at bedside in which all questions were answered Case discussed with Dr. Sung Plan discussed with: Patient, Other (Nurse) Dietary Evaluation Review Comments: 1. Advance to Soft, texture as tolerated Cardiac diet once passoing [employer] eval 2. Consider Tube feeding Jevity @50ml/hr providing 67g Protein 1440kcal if serum glucose remain WNL and PO feeding not medically feasible. Expected Outcomes/Goals: resoloved dysphagia ZEINAB LAMAS RESIDENT Apr 23, 2025 11:25
--- NOTE | 2025-04-23 13:32 | DVHPN2 ---
Subjective vertigo getting better Reviewed: H&P Changes from previous H/P or p: No Changes Eyes: No Pain, No Vision change, No Conjunctivae inflammation, No Eyelid inflammation, No Other, No Redness ENT: No Ear pain, No Ear discharge, No Nose pain, No Nose discharge, No Nose congestion, No Mouth pain, No Mouth swelling, No Throat pain, No Throat swelling; Other (Tinnitus bilateral ear) Cardiovascular: No Chest Pain, No Palpitations, No Orthopnea, No Paroxysmal Noc. Dyspnea, No Edema, No Lt Headedness, No Other Respiratory: No Cough, No Dry, No Shortness of breath, No SOB with excertion, No Wheezing, No Hemoptysis, No Pleuritic Pain, No Sputum, No Other Gastrointestinal: Nausea, Vomiting; No Abdominal Pain, No Diarrhea, No Constipation, No Melena, No Hematochezia, No Other Genitourinary: No Dysuria, No Frequency, No Incontinence, No Hematuria, No Retention, No Other Musculoskeletal: No other, No neck pain, No shoulder pain, No arm pain, No back pain, No hand pain, No leg pain, No foot pain Skin: No Rash, No Lesions, No Jaundice, No Bruising, No Other Objective Vitals Vital Signs Date Time Temp Pulse Resp B/P (MAP) Pulse Ox O2 Delivery O2 Flow Rate FiO2 04/23/25 12:43 98.5 80 18 138/96 (110) 99 98.5 04/23/25 09:20 Room Air 0.0 04/23/25 09:20 21 Intake/Output Intake and Output 04/23/25 07:00 Intake Total 735 ml Balance 735 ml Intake Oral 0 ml IV Total 735 ml # Voids 3 General Appearance: Alert, Oriented X3 Lungs: Clear to auscultation Cardiovascular: Regular rate, Normal S1, Normal S2 Abdomen: Normal bowel sounds Musculoskeletal: Other (LE weakness improved) Medications Current Medications Medications Dose Ordered Sig/Edouard Route Start Time Stop Time Status Last Admin Dose Admin Ondansetron HCl 4 mg Q4HP PRN IV 04/16/25 04:45 Hold 04/17/25 18:42 4 MG Enoxaparin Sodium 40 mg DAILY SC 04/16/25 10:00 04/23/25 09:49 40 MG Nitroglycerin 0.4 mg Q5MINP PRN SL 04/16/25 04:45 Morphine Sulfate 2 mg Q30M PRN IV 04/16/25 05:00 Meclizine HCl 25 mg Q8HR PO 04/16/25 06:00 04/22/25 12:43 25 MG Acetaminophen 650 mg Q6HP PRN PO 04/16/25 05:30 04/22/25 23:34 650 MG Prochlorperazine Edisylate 10 mg Q4HPRN PRN IV 04/18/25 12:00 04/23/25 07:26 10 MG Pantoprazole Sodium 40 mg DAILY IV 04/19/25 10:00 04/23/25 09:49 40 MG Labetalol HCl 10 mg Q2HPRN PRN IV 04/19/25 17:45 04/22/25 10:28 10 MG Sodium Chloride 1,000 ml @ 80 mls/hr [id number] IV 04/20/25 00:00 04/23/25 02:30 80 MLS/HR Aspirin 325 mg DAILY NG 04/22/25 10:00 04/23/25 09:48 325 MG Enteral Nutritional Formula 1,000 ml 60ML/HR GT 04/22/25 10:45 Amlodipine Besylate 10 mg DAILY NG 04/23/25 10:00 04/23/25 09:48 10 MG Atorvastatin Calcium 40 mg HS NG 04/22/25 23:15 04/22/25 23:24 40 MG Clopidogrel Bisulfate 75 mg DAILY NG 04/23/25 10:00 04/23/25 09:46 75 MG Laboratory Results Laboratory Tests 04/22/25 02:23 04/22/25 04:46 Urinalysis Test 04/17/25 16:38 Urine Color Yellow (Yellow) Urine Clarity Clear (Clear) Urine pH 6.0 (5.0-9.0) Urine Specific [place] 1.036 (1.001-1.035) Urine Protein Trace (Negative) H Urine Ketones 3+ (Negative) H Urine Blood Trace /uL (Negative) H Urine Nitrite Negative (Negative) Urine Bilirubin Negative (Negative) Urine Urobilinogen Normal mg/dL (Negative) Urine Leukocyte Esterase Negative /uL (Negative) Urine RBC 4 /hpf (0 - 4) Urine Microscopic WBC 3 /HPF (0-5) Urine Squamous Epithelial Cells Few /hpf (<5) Urine Bacteria None seen /hpf (None Seen) Urine Mucus Few (None Seen) Urine Glucose Normal mg/dL (Normal) Urine Test Negative (Negative) Microbiology Microbiology Date/Time Source Procedure Growth Status 04/20/25 06:40 Nose MRSA Screen - Final Complete Assessment/Plan Assessment/Plan 54-year-old female with a known history of hypertension, chronic migraine presented to the hospital with a nausea and vomiting dizziness and vertigo found to have #Acute ischemic stroke MRI showed acute stroke 8 mm acute right posterolateral medullary infarct. New weakness on 04/19 Evolving new infarct Continue aspirin, statin Neurology consulted PT eval Plan discussed with: Patient Date of Service: Apr 23, 2025 Billing Provider: ZAKI SANCHES MD Common Visit Codes: [id number] INP/OBS CARE(HIGH) ZAKI SANCHES MD Apr 23, 2025 13:32
[2025-04-23] MEDS: Jevity 1.2 Cal/Fiber 1 Liter GT SCH (22:59)
[2025-04-24] VITALS (9 sets, daily range): BP systolic 129–144; BP diastolic 83–102; PULSE 86–96; RESP 16–20; TEMP 97.9–98.8; O2SAT 95–100
--- NOTE | 2025-04-24 16:17 | DVHPN2 ---
Subjective vertigo getting better Reviewed: H&P Changes from previous H/P or p: No Changes Eyes: No Pain, No Vision change, No Conjunctivae inflammation, No Eyelid inflammation, No Other, No Redness ENT: No Ear pain, No Ear discharge, No Nose pain, No Nose discharge, No Nose congestion, No Mouth pain, No Mouth swelling, No Throat pain, No Throat swelling; Other (Tinnitus bilateral ear) Cardiovascular: No Chest Pain, No Palpitations, No Orthopnea, No Paroxysmal Noc. Dyspnea, No Edema, No Lt Headedness, No Other Respiratory: No Cough, No Dry, No Shortness of breath, No SOB with excertion, No Wheezing, No Hemoptysis, No Pleuritic Pain, No Sputum, No Other Gastrointestinal: Nausea, Vomiting; No Abdominal Pain, No Diarrhea, No Constipation, No Melena, No Hematochezia, No Other Genitourinary: No Dysuria, No Frequency, No Incontinence, No Hematuria, No Retention, No Other Musculoskeletal: No other, No neck pain, No shoulder pain, No arm pain, No back pain, No hand pain, No leg pain, No foot pain Skin: No Rash, No Lesions, No Jaundice, No Bruising, No Other Objective Vitals Vital Signs Date Time Temp Pulse Resp B/P (MAP) Pulse Ox O2 Delivery O2 Flow Rate FiO2 04/24/25 10:15 144/102 04/24/25 09:00 98.1 86 18 98 98.1 04/24/25 08:00 Room Air* 0 21 Intake/Output Intake and Output 04/24/25 05:00 Intake Total 1440 ml Balance 1440 ml Intake Oral 0 ml IV Total 720 ml Tube Feeding 720 ml # Voids 5 General Appearance: Alert, Oriented X3 Lungs: Clear to auscultation Cardiovascular: Regular rate, Normal S1, Normal S2 Abdomen: Normal bowel sounds Musculoskeletal: Other (LE weakness improved) Medications Current Medications Medications Dose Ordered Sig/Edouard Route Start Time Stop Time Status Last Admin Dose Admin Ondansetron HCl 4 mg Q4HP PRN IV 04/16/25 04:45 Hold 04/17/25 18:42 4 MG Enoxaparin Sodium 40 mg DAILY SC 04/16/25 10:00 04/24/25 10:15 40 MG Nitroglycerin 0.4 mg Q5MINP PRN SL 04/16/25 04:45 Morphine Sulfate 2 mg Q30M PRN IV 04/16/25 05:00 Meclizine HCl 25 mg Q8HR PO 04/16/25 06:00 04/22/25 12:43 25 MG Acetaminophen 650 mg Q6HP PRN PO 04/16/25 05:30 04/24/25 05:41 650 MG Prochlorperazine Edisylate 10 mg Q4HPRN PRN IV 04/18/25 12:00 04/23/25 07:26 10 MG Pantoprazole Sodium 40 mg DAILY IV 04/19/25 10:00 04/24/25 10:14 40 MG Labetalol HCl 10 mg Q2HPRN PRN IV 04/19/25 17:45 04/22/25 10:28 10 MG Sodium Chloride 1,000 ml @ 80 mls/hr [id number] IV 04/20/25 00:00 04/24/25 05:40 80 MLS/HR Aspirin 325 mg DAILY NG 04/22/25 10:00 04/24/25 10:15 325 MG Enteral Nutritional Formula 1,000 ml 60ML/HR GT 04/22/25 10:45 04/23/25 22:59 1,000 ML Amlodipine Besylate 10 mg DAILY NG 04/23/25 10:00 04/24/25 10:15 10 MG Atorvastatin Calcium 40 mg HS NG 04/22/25 23:15 04/23/25 22:50 40 MG Clopidogrel Bisulfate 75 mg DAILY NG 04/23/25 10:00 04/24/25 10:15 75 MG Laboratory Results Laboratory Tests 04/22/25 02:23 04/22/25 04:46 Urinalysis Test 04/17/25 16:38 Urine Color Yellow (Yellow) Urine Clarity Clear (Clear) Urine pH 6.0 (5.0-9.0) Urine Specific [place] 1.036 (1.001-1.035) Urine Protein Trace (Negative) H Urine Ketones 3+ (Negative) H Urine Blood Trace /uL (Negative) H Urine Nitrite Negative (Negative) Urine Bilirubin Negative (Negative) Urine Urobilinogen Normal mg/dL (Negative) Urine Leukocyte Esterase Negative /uL (Negative) Urine RBC 4 /hpf (0 - 4) Urine Microscopic WBC 3 /HPF (0-5) Urine Squamous Epithelial Cells Few /hpf (<5) Urine Bacteria None seen /hpf (None Seen) Urine Mucus Few (None Seen) Urine Glucose Normal mg/dL (Normal) Urine Test Negative (Negative) Microbiology Microbiology Date/Time Source Procedure Growth Status 04/20/25 06:40 Nose MRSA Screen - Final Complete Assessment/Plan Assessment/Plan 54-year-old female with a known history of hypertension, chronic migraine presented to the hospital with a nausea and vomiting dizziness and vertigo found to have #Acute ischemic stroke MRI showed acute stroke 8 mm acute right posterolateral medullary infarct. New weakness on 04/19 Evolving new infarct Continue aspirin, statin Neurology consulted PT eval Plan discussed with: Patient Date of Service: Apr 24, 2025 Billing Provider: ZAKI SANCHES MD Common Visit Codes: [id number] INP/OBS CARE(HIGH) ZAKI SANCHES MD Apr 24, 2025 16:17
--- NOTE | 2025-04-24 19:51 | DVHPN2 ---
Progress Note - Dictate Date Seen: Apr 24, 2025 Medical Necessity Reason Pt with a Central, PICC or Fol: No Subjective Reports feeling better, denies vomiting. On tube feedings vital signs Vital Sign Date Time Temp Pulse Resp B/P (MAP) Pulse Ox O2 Delivery O2 Flow Rate FiO2 04/24/25 17:00 98.6 92 20 134/92 (106) 98 98.6 04/24/25 08:00 Room Air* 0 21 Total Intake and Output 04/23/25 04/23/25 04/24/25 15:00 23:00 07:00 Intake Total 160 ml 0 ml Balance 160 ml 0 ml medications Current Medications Medications Dose Ordered Sig/Edouard Route Start Time Stop Time Status Last Admin Dose Admin Ondansetron HCl 4 mg Q4HP PRN IV 04/16/25 04:45 Hold 04/17/25 18:42 4 MG Enoxaparin Sodium 40 mg DAILY SC 04/16/25 10:00 04/24/25 10:15 40 MG Nitroglycerin 0.4 mg Q5MINP PRN SL 04/16/25 04:45 Morphine Sulfate 2 mg Q30M PRN IV 04/16/25 05:00 Meclizine HCl 25 mg Q8HR PO 04/16/25 06:00 04/22/25 12:43 25 MG Acetaminophen 650 mg Q6HP PRN PO 04/16/25 05:30 04/24/25 05:41 650 MG Prochlorperazine Edisylate 10 mg Q4HPRN PRN IV 04/18/25 12:00 04/23/25 07:26 10 MG Pantoprazole Sodium 40 mg DAILY IV 04/19/25 10:00 04/24/25 10:14 40 MG Labetalol HCl 10 mg Q2HPRN PRN IV 04/19/25 17:45 04/22/25 10:28 10 MG Sodium Chloride 1,000 ml @ 80 mls/hr [id number] IV 04/20/25 00:00 04/24/25 16:20 80 MLS/HR Aspirin 325 mg DAILY NG 04/22/25 10:00 04/24/25 10:15 325 MG Enteral Nutritional Formula 1,000 ml 60ML/HR GT 04/22/25 10:45 04/23/25 22:59 1,000 ML Amlodipine Besylate 10 mg DAILY NG 04/23/25 10:00 04/24/25 10:15 10 MG Atorvastatin Calcium 40 mg HS NG 04/22/25 23:15 04/23/25 22:50 40 MG Clopidogrel Bisulfate 75 mg DAILY NG 04/23/25 10:00 04/24/25 10:15 75 MG objective General: Well-built, afebrile, palor, mucosae are moist Cardiovascular: Regular S1 and S2. No murmurs, gallops or rubs. No JVD elevation. No pedal edema Respiratory: Normal B/L air entry on room air. Clear lung sounds on auscultation Abdomen: Soft, nontender, nondistended, normoactive bowel sounds, no rebound tenderness, no organomegaly, no masses Genitourinary: Deferred Psych/Mental Status: A/Ox3 laboratory and microbiology Laboratory Tests 04/22/25 04:46 04/22/25 02:23 Test 04/22/25 04:46 Range/Units Serum Glucose 73 L 74-106 mg/dL Problems(with codes): (1) Intractable vomiting (2) Vertigo (3) Migraine Prognosis 54-year-old female with a known history of hypertension, chronic migraine presented to the hospital with a nausea and vomiting dizziness and vertigo found to have #Acute ischemic stroke MRI showed acute stroke 8 mm acute right posterolateral medullary infarct. New weakness on 04/19 Evolving new infarct Continue aspirin, statin Neurology consulted PT eval Swallow evaluation Dietary Evaluation Review Comments: 1. Advance to Soft, texture as tolerated Cardiac diet once passoing INFORMATION SYSTEMS AUDIT MANAGER eval 2. Consider Tube feeding Jevity @50ml/hr providing 67g Protein 1440kcal if serum glucose remain WNL and PO feeding not medically feasible. Expected Outcomes/Goals: resoloved dysphagia Plan discussed with: Patient SOLEDAD MCGOWAN MD Apr 24, 2025 19:51
[2025-04-25] VITALS (9 sets, daily range): BP systolic 118–148; BP diastolic 85–94; PULSE 77–100; RESP 15–20; TEMP 97.6–99.3; O2SAT 97–100
--- NOTE | 2025-04-25 15:37 | DVHPN2 ---
Subjective vertigo getting better Reviewed: H&P Changes from previous H/P or p: No Changes Eyes: No Pain, No Vision change, No Conjunctivae inflammation, No Eyelid inflammation, No Other, No Redness ENT: No Ear pain, No Ear discharge, No Nose pain, No Nose discharge, No Nose congestion, No Mouth pain, No Mouth swelling, No Throat pain, No Throat swelling; Other (Tinnitus bilateral ear) Cardiovascular: No Chest Pain, No Palpitations, No Orthopnea, No Paroxysmal Noc. Dyspnea, No Edema, No Lt Headedness, No Other Respiratory: No Cough, No Dry, No Shortness of breath, No SOB with excertion, No Wheezing, No Hemoptysis, No Pleuritic Pain, No Sputum, No Other Gastrointestinal: Nausea, Vomiting; No Abdominal Pain, No Diarrhea, No Constipation, No Melena, No Hematochezia, No Other Genitourinary: No Dysuria, No Frequency, No Incontinence, No Hematuria, No Retention, No Other Musculoskeletal: No other, No neck pain, No shoulder pain, No arm pain, No back pain, No hand pain, No leg pain, No foot pain Skin: No Rash, No Lesions, No Jaundice, No Bruising, No Other Objective Vitals Vital Signs Date Time Temp Pulse Resp B/P (MAP) Pulse Ox O2 Delivery O2 Flow Rate FiO2 04/25/25 12:48 97.6 84 16 147/94 (111) 98 97.6 04/25/25 08:21 Room Air* 0 21 Intake/Output Intake and Output 04/25/25 06:59 Intake Total 1600 ml Balance 1600 ml Intake Oral 0 ml IV Total 1100 ml Tube Feeding 500 ml # Voids 5 General Appearance: Alert, Oriented X3 Lungs: Clear to auscultation Cardiovascular: Regular rate, Normal S1, Normal S2 Abdomen: Normal bowel sounds Musculoskeletal: Other (LE weakness improved) Medications Current Medications Medications Dose Ordered Sig/Edouard Route Start Time Stop Time Status Last Admin Dose Admin Ondansetron HCl 4 mg Q4HP PRN IV 04/16/25 04:45 Hold 04/17/25 18:42 4 MG Enoxaparin Sodium 40 mg DAILY SC 04/16/25 10:00 04/25/25 11:14 40 MG Nitroglycerin 0.4 mg Q5MINP PRN SL 04/16/25 04:45 Meclizine HCl 25 mg Q8HR PO 04/16/25 06:00 04/22/25 12:43 25 MG Acetaminophen 650 mg Q6HP PRN PO 04/16/25 05:30 04/25/25 11:12 650 MG Prochlorperazine Edisylate 10 mg Q4HPRN PRN IV 04/18/25 12:00 04/25/25 02:02 10 MG Pantoprazole Sodium 40 mg DAILY IV 04/19/25 10:00 04/25/25 11:13 40 MG Labetalol HCl 10 mg Q2HPRN PRN IV 04/19/25 17:45 04/22/25 10:28 10 MG Sodium Chloride 1,000 ml @ 80 mls/hr [id number] IV 04/20/25 00:00 04/25/25 05:33 80 MLS/HR Aspirin 325 mg DAILY NG 04/22/25 10:00 04/25/25 11:11 325 MG Enteral Nutritional Formula 1,000 ml 60ML/HR GT 04/22/25 10:45 04/24/25 22:07 1,000 ML Amlodipine Besylate 10 mg DAILY NG 04/23/25 10:00 04/25/25 11:12 10 MG Atorvastatin Calcium 40 mg HS NG 04/22/25 23:15 04/24/25 22:07 40 MG Clopidogrel Bisulfate 75 mg DAILY NG 04/23/25 10:00 04/25/25 11:13 75 MG Laboratory Results Laboratory Tests 04/22/25 02:23 04/22/25 04:46 Urinalysis Test 04/17/25 16:38 Urine Color Yellow (Yellow) Urine Clarity Clear (Clear) Urine pH 6.0 (5.0-9.0) Urine Specific [place] 1.036 (1.001-1.035) Urine Protein Trace (Negative) H Urine Ketones 3+ (Negative) H Urine Blood Trace /uL (Negative) H Urine Nitrite Negative (Negative) Urine Bilirubin Negative (Negative) Urine Urobilinogen Normal mg/dL (Negative) Urine Leukocyte Esterase Negative /uL (Negative) Urine RBC 4 /hpf (0 - 4) Urine Microscopic WBC 3 /HPF (0-5) Urine Squamous Epithelial Cells Few /hpf (<5) Urine Bacteria None seen /hpf (None Seen) Urine Mucus Few (None Seen) Urine Glucose Normal mg/dL (Normal) Urine Test Negative (Negative) Microbiology Microbiology Date/Time Source Procedure Growth Status 04/20/25 06:40 Nose MRSA Screen - Final Complete Assessment/Plan Assessment/Plan 54-year-old female with a known history of hypertension, chronic migraine presented to the hospital with a nausea and vomiting dizziness and vertigo found to have #Acute ischemic stroke MRI showed acute stroke 8 mm acute right posterolateral medullary infarct. New weakness on 04/19 Evolving new infarct Continue aspirin, statin Neurology consulted PT eval Plan discussed with: Patient Date of Service: Apr 25, 2025 Billing Provider: ZAKI SANCHES MD Common Visit Codes: [id number] INP/OBS CARE(HIGH) ZAKI SANCHES MD Apr 25, 2025 15:37
--- NOTE | 2025-04-25 23:53 | DVHPN2 ---
Progress Note - Dictate Date Seen: Apr 25, 2025 Medical Necessity Reason Pt with a Central, PICC or Fol: No Subjective Ms. Gamboa is a 54 years old right-handed female with a history of hypertension, she came to the [facility] on 04/15/2025 with a chief company of dizziness. I have seen and examined the patient talked to her nurse. She keeps improving, voice stronger, she is alert and oriented x3 But reports new onset numbness in the left face, arm than leg but without weakness during daytime today UDS, 04/17/2025: Negative Urinalysis, 04/17/2025: Unremarkable CBC 04/19/25: ok Na, 04/16/25: 141. 04/19/25: 150 Bun/Cr 04/19/25: 36/0.75 HCO3 04/19/25: 17 LFT 04/19/25: ok TG/HDL/LDL/HDL, 04/16/2025: 69/224/129/83 Vitamin B12, 04/16/25: 472 TSH, 04/16/2025: 0.1 CT head, 04/16/25: No acute intracranial abnormality. CT head, 04/19/2025: 1. Evolving acute infarct within the right medulla, better delineated on recent MRI. 2. No acute intracranial hemorrhage CTA head, neck, 04/18/2025: No acute CTA abnormality of the major head and neck arterial vasculature MRI head, 04/17/2025: 8 mm acute right posterolateral medullary infarct MRI head, 04/20/2025: No significant interval change. Redemonstration of an acute infarct within the right posterolateral medulla. vital signs Vital Sign Date Time Temp Pulse Resp B/P (MAP) Pulse Ox O2 Delivery O2 Flow Rate FiO2 04/25/25 21:00 97.7 97 15 148/88 (108) 97 97.7 04/25/25 08:21 Room Air* 0 21 Total Intake and Output 04/24/25 04/24/25 04/25/25 15:00 23:00 07:00 Intake Total 1420 ml 180 ml Balance 1420 ml 180 ml medications Current Medications Medications Dose Ordered Sig/Edouard Route Start Time Stop Time Status Last Admin Dose Admin Ondansetron HCl 4 mg Q4HP PRN IV 04/16/25 04:45 Hold 04/17/25 18:42 4 MG Enoxaparin Sodium 40 mg DAILY SC 04/16/25 10:00 04/25/25 11:14 40 MG Nitroglycerin 0.4 mg Q5MINP PRN SL 04/16/25 04:45 Meclizine HCl 25 mg Q8HR PO 04/16/25 06:00 04/22/25 12:43 25 MG Acetaminophen 650 mg Q6HP PRN PO 04/16/25 05:30 04/25/25 21:46 650 MG Prochlorperazine Edisylate 10 mg Q4HPRN PRN IV 04/18/25 12:00 04/25/25 02:02 10 MG Pantoprazole Sodium 40 mg DAILY IV 04/19/25 10:00 04/25/25 11:13 40 MG Labetalol HCl 10 mg Q2HPRN PRN IV 04/19/25 17:45 04/22/25 10:28 10 MG Sodium Chloride 1,000 ml @ 80 mls/hr [id number] IV 04/20/25 00:00 04/25/25 17:39 80 MLS/HR Aspirin 325 mg DAILY NG 04/22/25 10:00 04/25/25 11:11 325 MG Enteral Nutritional Formula 1,000 ml 60ML/HR GT 04/22/25 10:45 04/24/25 22:07 1,000 ML Amlodipine Besylate 10 mg DAILY NG 04/23/25 10:00 04/25/25 11:12 10 MG Atorvastatin Calcium 40 mg HS NG 04/22/25 23:15 04/25/25 21:44 40 MG Clopidogrel Bisulfate 75 mg DAILY NG 04/23/25 10:00 04/25/25 11:13 75 MG objective General: the patient is well developed and nourished. No acute distress. MENTAL STATUS: Subjective SPEECH, LANGUAGE, HIGHER CORTICAL FUNCTION: no aphasia, the voice is weak but is clear CRANIAL NERVES: Pupils are equal, round and reactive, 2 mm. EOMs full and conjugate. No nystagmus. Diminished pinprick and light touch in the left face. Mandibular strength intact. Facial muscles symmetrical and strength intact. Tongue midline. No fasciculations or atrophy. SENSATION: Sensation to touch and pinprick is diminished in the left arm than leg MOTOR: Normal tone in the upper and lower extremity. Normal muscle bulk. No fasciculations. No abnormal movements or posturing. Muscle strength of the major groups in the extremities is 5/5 with left leg drift. REFLEXES: Deep tendon reflexes are symmetrical. No pathological reflexes. CEREBELLAR/COORDINATION: Finger to nose is normal GAIT/STATION: deferred. laboratory and microbiology Laboratory Tests 04/22/25 04:46 04/22/25 02:23 Test 04/22/25 04:46 Range/Units Serum Glucose 73 L 74-106 mg/dL Problem List Acute medulla oblongata stroke Dysphagia Vertigo Right hemiparesis New onset left numbness on 04/25/25 Left leg drift Gait disturbance Right arm weakness and numbness (without drift) Acute Headache since Thanksgi Migraine headache Assessment/Plan Monitoring Supportive treatment MR brain in the morning Telemetry Aspirin 81 mg daily Stabilize blood pressure Lipitor 40 mg daily later Current pain management DVT prophylaxis GI prophylaxis Avoid Triptan and ergot agents (discussed with her and her ) Speech pathology evaluation Consider physical therapy later More recommendation per clinical course This medical document was created using an electronic medical record system with curated.by dictation system. Although this document has been carefully reviewed, there may still be some phonetic and typographical errors. These areas are purely typographical due to imperfections of the software programs, and do not reflect any compromise in the patient's medical care. Prognosis poor Dietary Evaluation Review Comments: 1. Advance to Soft, texture as tolerated Cardiac diet once passoing REINSURANCE CLAIM ANALYST eval 2. Consider Tube feeding Jevity @50ml/hr providing 67g Protein 1440kcal if serum glucose remain WNL and PO feeding not medically feasible. Expected Outcomes/Goals: resoloved dysphagia Plan discussed with: Patient, Other Total Time (mins): 40 HERNAN HOLT MD Apr 25, 2025 23:53
[2025-04-26] VITALS (8 sets, daily range): BP systolic 134–148; BP diastolic 80–92; PULSE 88–106; RESP 15–18; TEMP 97.5–98; O2SAT 95–98
[2025-04-26] MEDS ORDERED: LORazepam 2MG/ML-1ML VIAL IV PRN
--- NOTE | 2025-04-26 10:30 | DVHPN2 ---
Progress Note - Dictate Date Seen: Apr 26, 2025 Medical Necessity Reason Pt with a Central, PICC or Fol: No Subjective Ms. Gamboa is a 54 years old right-handed female with a history of hypertension, she came to the [facility] on 04/15/2025 with a chief company of dizziness. I have seen and examined the patient talked to her nurse. Reports doing fine, she is alert and oriented x3 The left-sided numbness in the face, arm and the leg remained the same She reports persistent tingling in the right face in the hand UDS, 04/17/2025: Negative Urinalysis, 04/17/2025: Unremarkable CBC 04/19/25: ok Na, 04/16/25: 141. 04/19/25: 150 Bun/Cr 04/19/25: 36/0.75 HCO3 04/19/25: 17 LFT 04/19/25: ok TG/HDL/LDL/HDL, 04/16/2025: 69/224/129/83 Vitamin B12, 04/16/25: 472 TSH, 04/16/2025: 0.1 CT head, 04/16/25: No acute intracranial abnormality. CT head, 04/19/2025: 1. Evolving acute infarct within the right medulla, better delineated on recent MRI. 2. No acute intracranial hemorrhage CTA head, neck, 04/18/2025: No acute CTA abnormality of the major head and neck arterial vasculature MRI head, 04/17/2025: 8 mm acute right posterolateral medullary infarct MRI head, 04/20/2025: No significant interval change. Redemonstration of an acute infarct within the right posterolateral medulla. vital signs Vital Sign Date Time Temp Pulse Resp B/P (MAP) Pulse Ox O2 Delivery O2 Flow Rate FiO2 04/26/25 08:37 97.9 91 16 139/86 (103) 95 97.9 04/26/25 08:05 Room Air* 0 21 Total Intake and Output 04/25/25 04/25/25 04/26/25 15:00 23:00 07:00 Intake Total 1160 ml 0 ml Balance 1160 ml 0 ml medications Current Medications Medications Dose Ordered Sig/Edouard Route Start Time Stop Time Status Last Admin Dose Admin Ondansetron HCl 4 mg Q4HP PRN IV 04/16/25 04:45 Hold 04/17/25 18:42 4 MG Enoxaparin Sodium 40 mg DAILY SC 04/16/25 10:00 04/25/25 11:14 40 MG Nitroglycerin 0.4 mg Q5MINP PRN SL 04/16/25 04:45 Meclizine HCl 25 mg Q8HR PO 04/16/25 06:00 04/22/25 12:43 25 MG Acetaminophen 650 mg Q6HP PRN PO 04/16/25 05:30 04/26/25 07:07 650 MG Prochlorperazine Edisylate 10 mg Q4HPRN PRN IV 04/18/25 12:00 04/25/25 02:02 10 MG Pantoprazole Sodium 40 mg DAILY IV 04/19/25 10:00 04/25/25 11:13 40 MG Labetalol HCl 10 mg Q2HPRN PRN IV 04/19/25 17:45 04/22/25 10:28 10 MG Sodium Chloride 1,000 ml @ 80 mls/hr [id number] IV 04/20/25 00:00 04/26/25 06:00 80 MLS/HR Aspirin 325 mg DAILY NG 04/22/25 10:00 04/25/25 11:11 325 MG Enteral Nutritional Formula 1,000 ml 60ML/HR GT 04/22/25 10:45 04/24/25 22:07 1,000 ML Amlodipine Besylate 10 mg DAILY NG 04/23/25 10:00 04/25/25 11:12 10 MG Atorvastatin Calcium 40 mg HS NG 04/22/25 23:15 04/25/25 21:44 40 MG Clopidogrel Bisulfate 75 mg DAILY NG 04/23/25 10:00 04/25/25 11:13 75 MG Lorazepam 1 mg ONCE PRN IV 04/26/25 00:00 objective General: the patient is well developed and nourished. No acute distress. MENTAL STATUS: Subjective SPEECH, LANGUAGE, HIGHER CORTICAL FUNCTION: no aphasia, the voice is low but is clear CRANIAL NERVES: Pupils are equal, round and reactive, 2 mm. EOMs full and conjugate. No nystagmus. Diminished pinprick and light touch in the left face. Mandibular strength intact. Facial muscles symmetrical and strength intact. Tongue midline. No fasciculations or atrophy. SENSATION: Sensation to touch and pinprick is diminished in the left arm than leg MOTOR: Normal tone in the upper and lower extremity. Normal muscle bulk. No fasciculations. No abnormal movements or posturing. Muscle strength of the major groups in the extremities is 5/5 with left leg drift. REFLEXES: Deep tendon reflexes are symmetrical. No pathological reflexes. CEREBELLAR/COORDINATION: Finger to nose is normal GAIT/STATION: deferred. laboratory and microbiology Laboratory Tests 04/22/25 04:46 04/22/25 02:23 Test 04/22/25 04:46 Range/Units Serum Glucose 73 L 74-106 mg/dL Problem List Acute medulla oblongata stroke Dysphagia Vertigo Right hemiparesis New onset left numbness on 04/25/25 Left leg drift Gait disturbance Right arm weakness and numbness (without drift) Acute Headache since Thanksgi Migraine headache Assessment/Plan Monitoring Supportive treatment MR brain in the morning Telemetry Aspirin 81 mg daily Stabilize blood pressure Lipitor 40 mg daily later Current pain management DVT prophylaxis GI prophylaxis Avoid Triptan and ergot agents (discussed with her and her ) Speech pathology evaluation Consider physical therapy later More recommendation per clinical course This medical document was created using an electronic medical record system with [employer] dictation system. Although this document has been carefully reviewed, there may still be some phonetic and typographical errors. These areas are purely typographical due to imperfections of the software programs, and do not reflect any compromise in the patient's medical care. Prognosis poor Dietary Evaluation Review Comments: 1. Advance to Soft, texture as tolerated Cardiac diet once passoing FABRICATION TECHNICIAN eval 2. Consider Tube feeding Jevity @50ml/hr providing 67g Protein 1440kcal if serum glucose remain WNL and PO feeding not medically feasible. Expected Outcomes/Goals: resoloved dysphagia Plan discussed with: Patient, Other HERNAN HOLT MD Apr 26, 2025 10:30
--- NOTE | 2025-04-26 10:42 | DVHPN2 ---
Subjective vertigo getting better Reviewed: H&P Changes from previous H/P or p: No Changes Eyes: No Pain, No Vision change, No Conjunctivae inflammation, No Eyelid inflammation, No Other, No Redness ENT: No Ear pain, No Ear discharge, No Nose pain, No Nose discharge, No Nose congestion, No Mouth pain, No Mouth swelling, No Throat pain, No Throat swelling; Other (Tinnitus bilateral ear) Cardiovascular: No Chest Pain, No Palpitations, No Orthopnea, No Paroxysmal Noc. Dyspnea, No Edema, No Lt Headedness, No Other Respiratory: No Cough, No Dry, No Shortness of breath, No SOB with excertion, No Wheezing, No Hemoptysis, No Pleuritic Pain, No Sputum, No Other Gastrointestinal: Nausea, Vomiting; No Abdominal Pain, No Diarrhea, No Constipation, No Melena, No Hematochezia, No Other Genitourinary: No Dysuria, No Frequency, No Incontinence, No Hematuria, No Retention, No Other Musculoskeletal: No other, No neck pain, No shoulder pain, No arm pain, No back pain, No hand pain, No leg pain, No foot pain Skin: No Rash, No Lesions, No Jaundice, No Bruising, No Other Objective Vitals Vital Signs Date Time Temp Pulse Resp B/P (MAP) Pulse Ox O2 Delivery O2 Flow Rate FiO2 04/26/25 10:12 125/103 04/26/25 08:37 97.9 91 16 95 97.9 04/26/25 08:05 Room Air* 0 21 Intake/Output Intake and Output 04/26/25 07:00 Intake Total 1160 ml Balance 1160 ml Intake Oral 0 ml IV Total 1160 ml # Voids 9 General Appearance: Alert, Oriented X3 Lungs: Clear to auscultation Cardiovascular: Regular rate, Normal S1, Normal S2 Abdomen: Normal bowel sounds Musculoskeletal: Other (LE weakness improved) Medications Current Medications Medications Dose Ordered Sig/Edouard Route Start Time Stop Time Status Last Admin Dose Admin Ondansetron HCl 4 mg Q4HP PRN IV 04/16/25 04:45 Hold 04/17/25 18:42 4 MG Enoxaparin Sodium 40 mg DAILY SC 04/16/25 10:00 04/26/25 10:13 40 MG Nitroglycerin 0.4 mg Q5MINP PRN SL 04/16/25 04:45 Meclizine HCl 25 mg Q8HR PO 04/16/25 06:00 04/22/25 12:43 25 MG Acetaminophen 650 mg Q6HP PRN PO 04/16/25 05:30 04/26/25 07:07 650 MG Prochlorperazine Edisylate 10 mg Q4HPRN PRN IV 04/18/25 12:00 04/25/25 02:02 10 MG Pantoprazole Sodium 40 mg DAILY IV 04/19/25 10:00 04/26/25 10:02 40 MG Labetalol HCl 10 mg Q2HPRN PRN IV 04/19/25 17:45 04/22/25 10:28 10 MG Sodium Chloride 1,000 ml @ 80 mls/hr [id number] IV 04/20/25 00:00 04/26/25 06:00 80 MLS/HR Aspirin 325 mg DAILY NG 04/22/25 10:00 04/26/25 10:09 325 MG Enteral Nutritional Formula 1,000 ml 60ML/HR GT 04/22/25 10:45 04/24/25 22:07 1,000 ML Amlodipine Besylate 10 mg DAILY NG 04/23/25 10:00 04/26/25 10:12 10 MG Atorvastatin Calcium 40 mg HS NG 04/22/25 23:15 04/25/25 21:44 40 MG Clopidogrel Bisulfate 75 mg DAILY NG 04/23/25 10:00 04/26/25 10:09 75 MG Lorazepam 1 mg ONCE PRN IV 04/26/25 00:00 Laboratory Results Laboratory Tests 04/22/25 02:23 04/22/25 04:46 Urinalysis Test 04/17/25 16:38 Urine Color Yellow (Yellow) Urine Clarity Clear (Clear) Urine pH 6.0 (5.0-9.0) Urine Specific [place] 1.036 (1.001-1.035) Urine Protein Trace (Negative) H Urine Ketones 3+ (Negative) H Urine Blood Trace /uL (Negative) H Urine Nitrite Negative (Negative) Urine Bilirubin Negative (Negative) Urine Urobilinogen Normal mg/dL (Negative) Urine Leukocyte Esterase Negative /uL (Negative) Urine RBC 4 /hpf (0 - 4) Urine Microscopic WBC 3 /HPF (0-5) Urine Squamous Epithelial Cells Few /hpf (<5) Urine Bacteria None seen /hpf (None Seen) Urine Mucus Few (None Seen) Urine Glucose Normal mg/dL (Normal) Urine Test Negative (Negative) Microbiology Microbiology Date/Time Source Procedure Growth Status 04/20/25 06:40 Nose MRSA Screen - Final Complete Assessment/Plan Assessment/Plan 54-year-old female with a known history of hypertension, chronic migraine presented to the hospital with a nausea and vomiting dizziness and vertigo found to have #Acute ischemic stroke MRI showed acute stroke 8 mm acute right posterolateral medullary infarct. New weakness on 04/19 Evolving new infarct Continue aspirin, statin Neurology consulted PT eval Dispo: Pending speech eval, has NGT feeds due to failed speech Plan discussed with: Patient Date of Service: Apr 26, 2025 Billing Provider: ZAKI SANCHES MD Common Visit Codes: [id number] INP/OBS CARE(HIGH) ZAKI SANCHES MD Apr 26, 2025 10:42
--- NOTE | 2025-04-26 13:04 | DVH ---
EXAMINATION: MRI BRAIN HEAD WO CONTRAST INDICATION: New onset left hemiparesthesia, left leg weakness COMPARISON: MRI BRAIN HEAD WO CONTRAST on DOS: 04/20/25, MRI BRAIN HEAD WO CONTRAST on DOS: 04/18/25 TECHNIQUE: Multiplanar, multisequence magnetic resonance imaging of the brain was performed without the use of intravenous contrast. FINDINGS: There is a mild area of increased signal intensity seen in the right medulla on T2 and diffusion imaging. There is periventricular/deep white matter T2/FLAIR hyperintensity is nonspecific, but most commonly associated with chronic microvascular disease. The ventricles and sulci are normal in size for age. Clear basal cisterns. Flow voids in the major intracranial vessels are maintained. No abnormality of the orbits. Paranasal sinuses and mastoid air cells are clear. No abnormality of the visualized osseous structures and extracranial soft tissues. IMPRESSION: 1. Acute infarct involving the right medulla.
--- NOTE | 2025-04-26 16:52 | DVHPN2 ---
Progress Note - Dictate Date Seen: Apr 26, 2025 Medical Necessity Reason Pt with a Central, PICC or Fol: No Subjective Reports feeling better, denies vomiting. Vertigo Improving On tube feedings vital signs Vital Sign Date Time Temp Pulse Resp B/P (MAP) Pulse Ox O2 Delivery O2 Flow Rate FiO2 04/26/25 16:35 97.7 93 16 138/82 (100) 96 97.7 04/26/25 08:05 Room Air* 0 21 Total Intake and Output 04/25/25 04/25/25 04/26/25 15:00 23:00 07:00 Intake Total 1160 ml 0 ml Balance 1160 ml 0 ml medications Current Medications Medications Dose Ordered Sig/Edouard Route Start Time Stop Time Status Last Admin Dose Admin Ondansetron HCl 4 mg Q4HP PRN IV 04/16/25 04:45 Hold 04/17/25 18:42 4 MG Enoxaparin Sodium 40 mg DAILY SC 04/16/25 10:00 04/26/25 10:13 40 MG Nitroglycerin 0.4 mg Q5MINP PRN SL 04/16/25 04:45 Meclizine HCl 25 mg Q8HR PO 04/16/25 06:00 04/22/25 12:43 25 MG Acetaminophen 650 mg Q6HP PRN PO 04/16/25 05:30 04/26/25 07:07 650 MG Prochlorperazine Edisylate 10 mg Q4HPRN PRN IV 04/18/25 12:00 04/25/25 02:02 10 MG Pantoprazole Sodium 40 mg DAILY IV 04/19/25 10:00 04/26/25 10:02 40 MG Labetalol HCl 10 mg Q2HPRN PRN IV 04/19/25 17:45 04/22/25 10:28 10 MG Sodium Chloride 1,000 ml @ 80 mls/hr [id number] IV 04/20/25 00:00 04/26/25 06:00 80 MLS/HR Aspirin 325 mg DAILY NG 04/22/25 10:00 04/26/25 10:09 325 MG Enteral Nutritional Formula 1,000 ml 60ML/HR GT 04/22/25 10:45 04/24/25 22:07 1,000 ML Amlodipine Besylate 10 mg DAILY NG 04/23/25 10:00 04/26/25 10:12 10 MG Atorvastatin Calcium 40 mg HS NG 04/22/25 23:15 04/25/25 21:44 40 MG Clopidogrel Bisulfate 75 mg DAILY NG 04/23/25 10:00 04/26/25 10:09 75 MG Lorazepam 1 mg ONCE PRN IV 04/26/25 00:00 objective General: Well-built, afebrile, palor, mucosae are moist Cardiovascular: Regular S1 and S2. No murmurs, gallops or rubs. No JVD elevation. No pedal edema Respiratory: Normal B/L air entry on room air. Clear lung sounds on auscultation Abdomen: Soft, nontender, nondistended, normoactive bowel sounds, no rebound tenderness, no organomegaly, no masses Genitourinary: Deferred Psych/Mental Status: A/Ox3 laboratory and microbiology Laboratory Tests 04/22/25 04:46 04/22/25 02:23 Test 04/22/25 04:46 Range/Units Serum Glucose 73 L 74-106 mg/dL Problems(with codes): (1) Stroke (2) Migraine (3) Intractable vomiting (4) Vertigo Prognosis Plan Continue tube feedings as tolerated Awaiting speech evaluation and swallow evaluation prior to initiating oral feedings GI Services we will follow up Dietary Evaluation Review Comments: 1. 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 Consider Tube feeding Jevity @50ml/hr providing 67g Protein 1440kcal if serum glucose remain WNL and PO feeding not medically feasible. Expected Outcomes/Goals: resoloved dysphagia Plan discussed with: Patient, Other SOLEDAD MCGOWAN MD Apr 26, 2025 16:52
[2025-04-27] VITALS (9 sets, daily range): BP systolic 121–144; BP diastolic 76–87; PULSE 86–112; RESP 14–18; TEMP 97.6–98.5; O2SAT 97–100
--- NOTE | 2025-04-27 10:54 | DVHPN2 ---
Subjective The patient is seen and examined at bedside. Still have left-sided weakness and on tube feeding. Still requiring max assist. Patient had tried to work with physical therapy. Reviewed: Care Plan, H&P, Labs, Medications, Previous Orders, Radiology Changes from previous H/P or p: No Changes Eyes: No Pain, No Vision change, No Conjunctivae inflammation, No Eyelid inflammation, No Other, No Redness ENT: No Ear pain, No Ear discharge, No Nose pain, No Nose discharge, No Nose congestion, No Mouth pain, No Mouth swelling, No Throat pain, No Throat swelling; Other (Tinnitus bilateral ear) Cardiovascular: No Chest Pain, No Palpitations, No Orthopnea, No Paroxysmal Noc. Dyspnea, No Edema, No Lt Headedness, No Other Respiratory: No Cough, No Dry, No Shortness of breath, No SOB with excertion, No Wheezing, No Hemoptysis, No Pleuritic Pain, No Sputum, No Other Gastrointestinal: Nausea, Vomiting; No Abdominal Pain, No Diarrhea, No Constipation, No Melena, No Hematochezia, No Other Genitourinary: No Dysuria, No Frequency, No Incontinence, No Hematuria, No Retention, No Other Musculoskeletal: No other, No neck pain, No shoulder pain, No arm pain, No back pain, No hand pain, No leg pain, No foot pain Skin: No Rash, No Lesions, No Jaundice, No Bruising, No Other Objective Vitals Vital Signs Date Time Temp Pulse Resp B/P (MAP) Pulse Ox O2 Delivery O2 Flow Rate FiO2 04/27/25 09:36 144/87 04/27/25 08:49 98.2 95 14 98 98.2 04/27/25 07:57 Room Air* 0 21 Intake/Output Intake and Output 04/27/25 07:00 Intake Total 0 ml Balance 0 ml Intake Oral 0 ml # Voids 8 General Appearance: Alert, Oriented X3, Cooperative HEENT: Atraumatic, PERRLA, EOMI, Mucous membr. moist/pink Neck: Supple Lungs: Clear to auscultation Cardiovascular: Regular rate, Normal S1, Normal S2 Abdomen: Normal bowel sounds, Soft, No tenderness Musculoskeletal: Other Neuro: Other (Left-sided weakness with dysphagia) Psych/Mental Status: Mental status NL Medications Current Medications Medications Dose Ordered Sig/Edouard Route Start Time Stop Time Status Last Admin Dose Admin Ondansetron HCl 4 mg Q4HP PRN IV 04/16/25 04:45 Hold 04/17/25 18:42 4 MG Enoxaparin Sodium 40 mg DAILY SC 04/16/25 10:00 04/27/25 09:36 40 MG Nitroglycerin 0.4 mg Q5MINP PRN SL 04/16/25 04:45 Meclizine HCl 25 mg Q8HR PO 04/16/25 06:00 04/22/25 12:43 25 MG Acetaminophen 650 mg Q6HP PRN PO 04/16/25 05:30 04/27/25 04:00 650 MG Prochlorperazine Edisylate 10 mg Q4HPRN PRN IV 04/18/25 12:00 04/25/25 02:02 10 MG Pantoprazole Sodium 40 mg DAILY IV 04/19/25 10:00 04/27/25 09:35 40 MG Labetalol HCl 10 mg Q2HPRN PRN IV 04/19/25 17:45 04/22/25 10:28 10 MG Sodium Chloride 1,000 ml @ 80 mls/hr [id number] IV 04/20/25 00:00 04/26/25 21:17 80 MLS/HR Aspirin 325 mg DAILY NG 04/22/25 10:00 04/27/25 09:36 325 MG Enteral Nutritional Formula 1,000 ml 60ML/HR GT 04/22/25 10:45 04/26/25 22:26 1,000 ML Amlodipine Besylate 10 mg DAILY NG 04/23/25 10:00 04/27/25 09:36 10 MG Atorvastatin Calcium 40 mg HS NG 04/22/25 23:15 04/26/25 21:16 40 MG Clopidogrel Bisulfate 75 mg DAILY NG 04/23/25 10:00 04/27/25 09:36 75 MG Lorazepam 1 mg ONCE PRN IV 04/26/25 00:00 Laboratory Results Laboratory Tests 04/22/25 02:23 04/22/25 04:46 Urinalysis Test 04/17/25 16:38 Urine Color Yellow (Yellow) Urine Clarity Clear (Clear) Urine pH 6.0 (5.0-9.0) Urine Specific [place] 1.036 (1.001-1.035) Urine Protein Trace (Negative) H Urine Ketones 3+ (Negative) H Urine Blood Trace /uL (Negative) H Urine Nitrite Negative (Negative) Urine Bilirubin Negative (Negative) Urine Urobilinogen Normal mg/dL (Negative) Urine Leukocyte Esterase Negative /uL (Negative) Urine RBC 4 /hpf (0 - 4) Urine Microscopic WBC 3 /HPF (0-5) Urine Squamous Epithelial Cells Few /hpf (<5) Urine Bacteria None seen /hpf (None Seen) Urine Mucus Few (None Seen) Urine Glucose Normal mg/dL (Normal) Urine Test Negative (Negative) Microbiology Microbiology Date/Time Source Procedure Growth Status 04/20/25 06:40 Nose MRSA Screen - Final Complete Labs and/or images reviewed: Labs reviewed by me Assessment/Plan Assessment/Plan Acute ischemic stroke. MRI showed acute stroke 8 mm acute right posterolateral medullary infarct. New weakness on 04/19 Evolving new infarct Continuing current management. Continuing with tube feeding. Continuing swallow evaluation. If the patient pass swallow eval we will anticipate to start food. As right now continuing tube feeding. Physical therapy to get the patient out of bed and ambulate Continuing aspirin and statin Continuing hypertensive medication This medical document was created using an electronic medical record system with [employer] direct computerized dictation system. Although this document has been carefully reviewed, there may still be some phonetic and typographical errors. These areas are purely typographical due to imperfections of the software programs, and do not reflect any compromise in the patient's medical care. Plan discussed with: Patient Date of Service: Apr 27, 2025 Billing Provider: PRICILA PEREIRA MD Common Visit Codes: [id number] INP/OBS CARE(HIGH) PRICILA PEREIRA MD Apr 27, 2025 10:54
--- NOTE | 2025-04-27 16:21 | DVHPN2 ---
Progress Note - Dictate Date Seen: Apr 27, 2025 Medical Necessity Reason Pt with a Central, PICC or Fol: No Subjective Reports feeling better, denies vomiting. Vertigo Improving On tube feedings vital signs Vital Sign Date Time Temp Pulse Resp B/P (MAP) Pulse Ox O2 Delivery O2 Flow Rate FiO2 04/27/25 12:48 98.1 91 16 131/76 (94) 100 98.1 04/27/25 07:57 Room Air* 0 21 Total Intake and Output 04/26/25 04/26/25 04/27/25 15:00 23:00 07:00 Intake Total 0 ml 0 ml Balance 0 ml 0 ml medications Current Medications Medications Dose Ordered Sig/Edouard Route Start Time Stop Time Status Last Admin Dose Admin Ondansetron HCl 4 mg Q4HP PRN IV 04/16/25 04:45 Hold 04/17/25 18:42 4 MG Nitroglycerin 0.4 mg Q5MINP PRN SL 04/16/25 04:45 Meclizine HCl 25 mg Q8HR PO 04/16/25 06:00 04/27/25 13:37 25 MG Acetaminophen 650 mg Q6HP PRN PO 04/16/25 05:30 04/27/25 04:00 650 MG Prochlorperazine Edisylate 10 mg Q4HPRN PRN IV 04/18/25 12:00 04/27/25 13:37 10 MG Pantoprazole Sodium 40 mg DAILY IV 04/19/25 10:00 04/27/25 09:35 40 MG Labetalol HCl 10 mg Q2HPRN PRN IV 04/19/25 17:45 04/22/25 10:28 10 MG Sodium Chloride 1,000 ml @ 80 mls/hr [id number] IV 04/20/25 00:00 04/26/25 21:17 80 MLS/HR Aspirin 325 mg DAILY NG 04/22/25 10:00 04/27/25 09:36 325 MG Enteral Nutritional Formula 1,000 ml 60ML/HR GT 04/22/25 10:45 04/26/25 22:26 1,000 ML Amlodipine Besylate 10 mg DAILY NG 04/23/25 10:00 04/27/25 09:36 10 MG Atorvastatin Calcium 40 mg HS NG 04/22/25 23:15 04/26/25 21:16 40 MG Clopidogrel Bisulfate 75 mg DAILY NG 04/23/25 10:00 04/27/25 09:36 75 MG Lorazepam 1 mg ONCE PRN IV 04/26/25 00:00 objective General: Well-built, afebrile, palor, mucosae are moist Cardiovascular: Regular S1 and S2. No murmurs, gallops or rubs. No JVD elevation. No pedal edema Respiratory: Normal B/L air entry on room air. Clear lung sounds on auscultation Abdomen: Soft, nontender, nondistended, normoactive bowel sounds, no rebound tenderness, no organomegaly, no masses Genitourinary: Deferred Psych/Mental Status: A/Ox3 laboratory and microbiology Laboratory Tests 04/22/25 04:46 04/22/25 02:23 Test 04/22/25 04:46 Range/Units Serum Glucose 73 L 74-106 mg/dL Problems(with codes): (1) Stroke (2) Migraine (3) Intractable vomiting (4) Vertigo Prognosis Plan Continue tube feedings as tolerated Awaiting speech evaluation and swallow evaluation prior to initiating oral feedings GI Services we will follow up Dietary Evaluation Review Comments: 1. 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 Consider Tube feeding Jevity @50ml/hr providing 67g Protein 1440kcal if serum glucose remain WNL and PO feeding not medically feasible. Expected Outcomes/Goals: resoloved dysphagia Plan discussed with: Other (Nurse) SOLEDAD MCGOWAN MD Apr 27, 2025 16:21
[2025-04-28] VITALS (8 sets, daily range): BP systolic 123–144; BP diastolic 72–87; PULSE 85–100; RESP 16–18; TEMP 97.7–98.8; O2SAT 96–98
--- NOTE | 2025-04-28 09:28 | DVHPN2 ---
Progress Note - Dictate Date Seen: Apr 27, 2025 Medical Necessity Reason Pt with a Central, PICC or Fol: No Subjective [employer] did not work yesterday evening (ticket number [id number]) Ms. Gamboa is a 54 years old right-handed female with a history of hypertension, she came to the [facility] on 04/15/2025 with a chief company of dizziness. I have seen and examined the patient talked to her nurse. She is alert and fully oriented, her voice is better, she reports doing better now UDS, 04/17/2025: Negative Urinalysis, 04/17/2025: Unremarkable CBC 04/19/25: ok Na, 04/16/25: 141. 04/19/25: 150 Bun/Cr 04/19/25: 36/0.75 HCO3 04/19/25: 17 LFT 04/19/25: ok TG/HDL/LDL/HDL, 04/16/2025: 69/224/129/83 Vitamin B12, 04/16/25: 472 TSH, 04/16/2025: 0.1 CT head, 04/16/25: No acute intracranial abnormality. CT head, 04/19/2025: 1. Evolving acute infarct within the right medulla, better delineated on recent MRI. 2. No acute intracranial hemorrhage CTA head, neck, 04/18/2025: No acute CTA abnormality of the major head and neck arterial vasculature MRI head, 04/17/2025: 8 mm acute right posterolateral medullary infarct MRI head, 04/20/2025: No significant interval change. Redemonstration of an acute infarct within the right posterolateral medulla. MR head, 04/25/2025: Acute infarct involving the right medulla (The infarct within the right medulla has slightly improved and is going through evolution since prior exam 04/20/2025 vital signs Vital Sign Date Time Temp Pulse Resp B/P (MAP) Pulse Ox O2 Delivery O2 Flow Rate FiO2 04/28/25 09:00 98.8 85 18 133/72 (92) 96 98.8 04/28/25 07:45 Room Air* 0 21 Total Intake and Output 04/27/25 04/27/25 04/28/25 15:00 23:00 07:00 Intake Total 640 ml 0 ml Balance 640 ml 0 ml medications Current Medications Medications Dose Ordered Sig/Edouard Route Start Time Stop Time Status Last Admin Dose Admin Ondansetron HCl 4 mg Q4HP PRN IV 04/16/25 04:45 Hold 04/17/25 18:42 4 MG Nitroglycerin 0.4 mg Q5MINP PRN SL 04/16/25 04:45 Meclizine HCl 25 mg Q8HR PO 04/16/25 06:00 04/27/25 13:37 25 MG Acetaminophen 650 mg Q6HP PRN PO 04/16/25 05:30 04/28/25 04:59 650 MG Prochlorperazine Edisylate 10 mg Q4HPRN PRN IV 04/18/25 12:00 04/27/25 13:37 10 MG Pantoprazole Sodium 40 mg DAILY IV 04/19/25 10:00 04/27/25 09:35 40 MG Labetalol HCl 10 mg Q2HPRN PRN IV 04/19/25 17:45 04/22/25 10:28 10 MG Sodium Chloride 1,000 ml @ 80 mls/hr [id number] IV 04/20/25 00:00 04/27/25 21:39 80 MLS/HR Aspirin 325 mg DAILY NG 04/22/25 10:00 04/27/25 09:36 325 MG Enteral Nutritional Formula 1,000 ml 60ML/HR GT 04/22/25 10:45 04/26/25 22:26 1,000 ML Amlodipine Besylate 10 mg DAILY NG 04/23/25 10:00 04/27/25 09:36 10 MG Atorvastatin Calcium 40 mg HS NG 04/22/25 23:15 04/27/25 21:39 40 MG Clopidogrel Bisulfate 75 mg DAILY NG 04/23/25 10:00 04/27/25 09:36 75 MG Lorazepam 1 mg ONCE PRN IV 04/26/25 00:00 objective General: the patient is well developed and nourished. No acute distress. MENTAL STATUS: Subjective SPEECH, LANGUAGE, HIGHER CORTICAL FUNCTION: no aphasia, the voice stronger, but still low CRANIAL NERVES: Pupils are equal, round and reactive, 2 mm. EOMs full and conjugate. No nystagmus. Diminished pinprick and light touch in the left face. Mandibular strength intact. Facial muscles symmetrical and strength intact. Tongue midline. No fasciculations or atrophy. SENSATION: Sensation to touch and pinprick is diminished in the left arm than leg MOTOR: Normal tone in the upper and lower extremity. Normal muscle bulk. No fasciculations. No abnormal movements or posturing. Muscle strength of the major groups in the extremities is 5/5 with left side weaker REFLEXES: Deep tendon reflexes are symmetrical. No pathological reflexes. CEREBELLAR/COORDINATION: Finger to nose is normal GAIT/STATION: deferred. laboratory and microbiology Laboratory Tests 04/22/25 04:46 04/22/25 02:23 Test 04/22/25 04:46 Range/Units Serum Glucose 73 L 74-106 mg/dL Problem List Acute medulla oblongata stroke Dysphagia Vertigo Right hemiparesis New onset left numbness on 04/25/25 with unremarkable MR brain scan Left leg drift Gait disturbance Right arm weakness and numbness (without drift) Acute Headache since Thanks Migraine headache Assessment/Plan Monitoring Supportive treatment Telemetry Aspirin 81 mg daily Stabilize blood pressure Lipitor 40 mg daily later Current pain management DVT prophylaxis GI prophylaxis Avoid Triptan and ergot agents (discussed with her and her ) Speech pathology evaluation Physical therapy More recommendation per clinical course This medical document was created using an electronic medical record system with [employer] dictation system. Although this document has been carefully reviewed, there may still be some phonetic and typographical errors. These areas are purely typographical due to imperfections of the software programs, and do not reflect any compromise in the patient's medical care. Prognosis poor Dietary Evaluation Review Comments: 1. 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 Consider Tube feeding Jevity @50ml/hr providing 67g Protein 1440kcal if serum glucose remain WNL and PO feeding not medically feasible. Expected Outcomes/Goals: resoloved dysphagia Plan discussed with: Patient, Other HERNAN HOLT MD Apr 28, 2025 09:28
--- NOTE | 2025-04-28 10:49 | DVHPN2 ---
Progress Note Date Seen: Apr 28, 2025 Resident Creating Document: FORTINO PELLETIER RESIDENT Medical Necessity Reason Pt with a Central, PICC or Fol: No Subjective Review of Systems Reports feeling better, denies vomiting. On tube feedings Objective vital signs Vital Sign Date Time Temp Pulse Resp B/P (MAP) Pulse Ox O2 Delivery O2 Flow Rate FiO2 04/28/25 09:30 132/72 04/28/25 09:00 98.8 85 18 96 98.8 04/28/25 07:45 Room Air* 0 21 Total Intake and Output 04/27/25 04/27/25 04/28/25 15:00 23:00 07:00 Intake Total 640 ml 0 ml Balance 640 ml 0 ml medications Current Medications Medications Dose Ordered Sig/Edouard Route Start Time Stop Time Status Last Admin Dose Admin Ondansetron HCl 4 mg Q4HP PRN IV 04/16/25 04:45 Hold 04/17/25 18:42 4 MG Nitroglycerin 0.4 mg Q5MINP PRN SL 04/16/25 04:45 Meclizine HCl 25 mg Q8HR PO 04/16/25 06:00 04/27/25 13:37 25 MG Acetaminophen 650 mg Q6HP PRN PO 04/16/25 05:30 04/28/25 04:59 650 MG Prochlorperazine Edisylate 10 mg Q4HPRN PRN IV 04/18/25 12:00 04/27/25 13:37 10 MG Pantoprazole Sodium 40 mg DAILY IV 04/19/25 10:00 04/28/25 09:29 40 MG Labetalol HCl 10 mg Q2HPRN PRN IV 04/19/25 17:45 04/22/25 10:28 10 MG Sodium Chloride 1,000 ml @ 80 mls/hr [id number] IV 04/20/25 00:00 04/27/25 21:39 80 MLS/HR Aspirin 325 mg DAILY NG 04/22/25 10:00 04/28/25 09:29 325 MG Enteral Nutritional Formula 1,000 ml 60ML/HR GT 04/22/25 10:45 04/26/25 22:26 1,000 ML Amlodipine Besylate 10 mg DAILY NG 04/23/25 10:00 04/28/25 09:30 10 MG Atorvastatin Calcium 40 mg HS NG 04/22/25 23:15 04/27/25 21:39 40 MG Clopidogrel Bisulfate 75 mg DAILY NG 04/23/25 10:00 04/28/25 09:30 75 MG Lorazepam 1 mg ONCE PRN IV 04/26/25 00:00 Examination General: Well-built, afebrile, palor, mucosae are moist Cardiovascular: Regular S1 and S2. No murmurs, gallops or rubs. No JVD elevation. No pedal edema Respiratory: Normal B/L air entry on room air. Clear lung sounds on auscultation Abdomen: Soft, nontender, nondistended, normoactive bowel sounds, no rebound tenderness, no organomegaly, no masses Genitourinary: Deferred Psych/Mental Status: A/Ox3 laboratory and microbiology Laboratory Tests 04/22/25 04:46 04/22/25 02:23 Test 04/22/25 04:46 Range/Units Serum Glucose 73 L 74-106 mg/dL Microbiology Date/Time Source Procedure Growth Status 04/20/25 06:40 Nose MRSA Screen - Final Complete Problem List/Assessment/Plan Problem List/Assessment/Plan # Stroke # Migraine # Intractable vomiting # Vertigo Plan Continue tube feedings as tolerated Awaiting speech evaluation and swallow evaluation prior to initiating oral feedings GI Services we will follow up Case discussed with Dr Sung Plan discussed with: Patient, Other (rn) Dietary Evaluation Review Comments: 1. 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 Consider Tube feeding Jevity @50ml/hr providing 67g Protein 1440kcal if serum glucose remain WNL and PO feeding not medically feasible. Expected Outcomes/Goals: resoloved dysphagia FORTINO PELLETIER RESIDENT Apr 28, 2025 10:49
--- NOTE | 2025-04-28 11:58 | DVHPN2 ---
Subjective The patient is seen and examined at bedside. Still have left-sided weakness and on tube feeding. Still requiring max assist. Patient had tried to work with physical therapy. Reviewed: Care Plan, H&P, Labs, Medications, Previous Orders, Radiology Changes from previous H/P or p: No Changes Eyes: No Pain, No Vision change, No Conjunctivae inflammation, No Eyelid inflammation, No Other, No Redness ENT: No Ear pain, No Ear discharge, No Nose pain, No Nose discharge, No Nose congestion, No Mouth pain, No Mouth swelling, No Throat pain, No Throat swelling; Other (Tinnitus bilateral ear) Cardiovascular: No Chest Pain, No Palpitations, No Orthopnea, No Paroxysmal Noc. Dyspnea, No Edema, No Lt Headedness, No Other Respiratory: No Cough, No Dry, No Shortness of breath, No SOB with excertion, No Wheezing, No Hemoptysis, No Pleuritic Pain, No Sputum, No Other Gastrointestinal: Nausea, Vomiting; No Abdominal Pain, No Diarrhea, No Constipation, No Melena, No Hematochezia, No Other Genitourinary: No Dysuria, No Frequency, No Incontinence, No Hematuria, No Retention, No Other Musculoskeletal: No other, No neck pain, No shoulder pain, No arm pain, No back pain, No hand pain, No leg pain, No foot pain Skin: No Rash, No Lesions, No Jaundice, No Bruising, No Other Objective Vitals Vital Signs Date Time Temp Pulse Resp B/P (MAP) Pulse Ox O2 Delivery O2 Flow Rate FiO2 04/28/25 09:30 132/72 04/28/25 09:00 98.8 85 18 96 98.8 04/28/25 07:45 Room Air* 0 21 Intake/Output Intake and Output 04/28/25 07:00 Intake Total 640 ml Balance 640 ml Intake Oral 0 ml IV Total 640 ml # Voids 12 General Appearance: Alert, Oriented X3, Cooperative HEENT: Atraumatic, PERRLA, EOMI, Mucous membr. moist/pink Neck: Supple Lungs: Clear to auscultation Cardiovascular: Regular rate, Normal S1, Normal S2 Abdomen: Normal bowel sounds, Soft, No tenderness Musculoskeletal: Other Neuro: Other (Left-sided weakness with dysphagia) Psych/Mental Status: Mental status NL Medications Current Medications Medications Dose Ordered Sig/Edouard Route Start Time Stop Time Status Last Admin Dose Admin Ondansetron HCl 4 mg Q4HP PRN IV 04/16/25 04:45 Hold 04/17/25 18:42 4 MG Nitroglycerin 0.4 mg Q5MINP PRN SL 04/16/25 04:45 Meclizine HCl 25 mg Q8HR PO 04/16/25 06:00 04/27/25 13:37 25 MG Acetaminophen 650 mg Q6HP PRN PO 04/16/25 05:30 04/28/25 04:59 650 MG Prochlorperazine Edisylate 10 mg Q4HPRN PRN IV 04/18/25 12:00 04/27/25 13:37 10 MG Pantoprazole Sodium 40 mg DAILY IV 04/19/25 10:00 04/28/25 09:29 40 MG Labetalol HCl 10 mg Q2HPRN PRN IV 04/19/25 17:45 04/22/25 10:28 10 MG Sodium Chloride 1,000 ml @ 80 mls/hr [id number] IV 04/20/25 00:00 04/28/25 11:00 80 MLS/HR Aspirin 325 mg DAILY NG 04/22/25 10:00 04/28/25 09:29 325 MG Enteral Nutritional Formula 1,000 ml 60ML/HR GT 04/22/25 10:45 04/26/25 22:26 1,000 ML Amlodipine Besylate 10 mg DAILY NG 04/23/25 10:00 04/28/25 09:30 10 MG Atorvastatin Calcium 40 mg HS NG 04/22/25 23:15 04/27/25 21:39 40 MG Clopidogrel Bisulfate 75 mg DAILY NG 04/23/25 10:00 04/28/25 09:30 75 MG Lorazepam 1 mg ONCE PRN IV 04/26/25 00:00 Laboratory Results Laboratory Tests 04/22/25 02:23 04/22/25 04:46 Urinalysis Test 04/17/25 16:38 Urine Color Yellow (Yellow) Urine Clarity Clear (Clear) Urine pH 6.0 (5.0-9.0) Urine Specific [place] 1.036 (1.001-1.035) Urine Protein Trace (Negative) H Urine Ketones 3+ (Negative) H Urine Blood Trace /uL (Negative) H Urine Nitrite Negative (Negative) Urine Bilirubin Negative (Negative) Urine Urobilinogen Normal mg/dL (Negative) Urine Leukocyte Esterase Negative /uL (Negative) Urine RBC 4 /hpf (0 - 4) Urine Microscopic WBC 3 /HPF (0-5) Urine Squamous Epithelial Cells Few /hpf (<5) Urine Bacteria None seen /hpf (None Seen) Urine Mucus Few (None Seen) Urine Glucose Normal mg/dL (Normal) Urine Test Negative (Negative) Microbiology Microbiology Date/Time Source Procedure Growth Status 04/20/25 06:40 Nose MRSA Screen - Final Complete Labs and/or images reviewed: Labs reviewed by me Assessment/Plan Assessment/Plan Acute ischemic stroke. MRI showed acute stroke 8 mm acute right posterolateral medullary infarct. New weakness on 04/19 Evolving new infarct Continuing current management. Continuing with tube feeding. Continuing swallow evaluation. If the patient pass swallow eval we will anticipate to start food. As right now continuing tube feeding. Physical therapy to get the patient out of bed and ambulate Continuing aspirin and statin Continuing hypertensive medication Swallow evaluation order /waiting for speech therapist to see the patient. This medical document was created using an electronic medical record system with [employer] direct computerized dictation system. Although this document has been carefully reviewed, there may still be some phonetic and typographical errors. These areas are purely typographical due to imperfections of the software programs, and do not reflect any compromise in the patient's medical care. Plan discussed with: Patient, Spouse Date of Service: Apr 28, 2025 Billing Provider: PRICILA PEREIRA MD Common Visit Codes: [id number] INP/OBS CARE(HIGH) PRICILA PEREIRA MD Apr 28, 2025 11:58
--- NOTE | 2025-04-28 21:29 | DVHPN2 ---
Progress Note - Dictate Date Seen: Apr 28, 2025 Medical Necessity Reason Pt with a Central, PICC or Fol: No Subjective Ms. Gamboa is a 54 years old right-handed female with a history of hypertension, she came to the [facility] on 04/15/2025 with a chief company of dizziness. I have seen and examined the patient talked to her nurse. She is alert and fully oriented, her voice keeps improving, she reports doing better now She walked 30 ft with moderate assistance, and walker today UDS, 04/17/2025: Negative Urinalysis, 04/17/2025: Unremarkable CBC 04/19/25: ok Na, 04/16/25: 141. 04/19/25: 150 Bun/Cr 04/19/25: 36/0.75 HCO3 04/19/25: 17 LFT 04/19/25: ok TG/HDL/LDL/HDL, 04/16/2025: 69/224/129/83 Vitamin B12, 04/16/25: 472 TSH, 04/16/2025: 0.1 CT head, 04/16/25: No acute intracranial abnormality. CT head, 04/19/2025: 1. Evolving acute infarct within the right medulla, better delineated on recent MRI. 2. No acute intracranial hemorrhage CTA head, neck, 04/18/2025: No acute CTA abnormality of the major head and neck arterial vasculature MRI head, 04/17/2025: 8 mm acute right posterolateral medullary infarct MRI head, 04/20/2025: No significant interval change. Redemonstration of an acute infarct within the right posterolateral medulla. MR head, 04/25/2025: Acute infarct involving the right medulla (The infarct within the right medulla has slightly improved and is going through evolution since prior exam 04/20/2025 vital signs Vital Sign Date Time Temp Pulse Resp B/P (MAP) Pulse Ox O2 Delivery O2 Flow Rate FiO2 04/28/25 21:00 97.7 96 17 144/79 (100) 98 97.7 04/28/25 07:45 Room Air* 0 21 Total Intake and Output 04/27/25 04/27/25 04/28/25 15:00 23:00 07:00 Intake Total 640 ml 0 ml Balance 640 ml 0 ml medications Current Medications Medications Dose Ordered Sig/Edouard Route Start Time Stop Time Status Last Admin Dose Admin Ondansetron HCl 4 mg Q4HP PRN IV 04/16/25 04:45 Hold 04/17/25 18:42 4 MG Nitroglycerin 0.4 mg Q5MINP PRN SL 04/16/25 04:45 Meclizine HCl 25 mg Q8HR PO 04/16/25 06:00 04/27/25 13:37 25 MG Acetaminophen 650 mg Q6HP PRN PO 04/16/25 05:30 04/28/25 04:59 650 MG Prochlorperazine Edisylate 10 mg Q4HPRN PRN IV 04/18/25 12:00 04/27/25 13:37 10 MG Pantoprazole Sodium 40 mg DAILY IV 04/19/25 10:00 04/28/25 09:29 40 MG Labetalol HCl 10 mg Q2HPRN PRN IV 04/19/25 17:45 04/22/25 10:28 10 MG Sodium Chloride 1,000 ml @ 80 mls/hr [id number] IV 04/20/25 00:00 04/28/25 11:00 80 MLS/HR Aspirin 325 mg DAILY NG 04/22/25 10:00 04/28/25 09:29 325 MG Enteral Nutritional Formula 1,000 ml 60ML/HR GT 04/22/25 10:45 04/28/25 12:21 1,000 ML Amlodipine Besylate 10 mg DAILY NG 04/23/25 10:00 04/28/25 09:30 10 MG Atorvastatin Calcium 40 mg HS NG 04/22/25 23:15 04/27/25 21:39 40 MG Clopidogrel Bisulfate 75 mg DAILY NG 04/23/25 10:00 04/28/25 09:30 75 MG Lorazepam 1 mg ONCE PRN IV 04/26/25 00:00 objective General: the patient is well developed and nourished. No acute distress. MENTAL STATUS: Subjective SPEECH, LANGUAGE, HIGHER CORTICAL FUNCTION: no aphasia, the voice stronger, but still low CRANIAL NERVES: Pupils are equal, round and reactive, 2 mm. EOMs full and conjugate. No nystagmus. Diminished pinprick and light touch in the left face. Mandibular strength intact. Facial muscles symmetrical and strength intact. Tongue midline. No fasciculations or atrophy. SENSATION: Sensation to touch and pinprick is diminished in the left arm than leg MOTOR: Normal tone in the upper and lower extremity. Normal muscle bulk. No fasciculations. No abnormal movements or posturing. Muscle strength of the major groups in the extremities is 5/5 REFLEXES: Deep tendon reflexes are symmetrical. No pathological reflexes. CEREBELLAR/COORDINATION: Finger to nose is normal GAIT/STATION: deferred. laboratory and microbiology Laboratory Tests 04/22/25 04:46 04/22/25 02:23 Test 04/22/25 04:46 Range/Units Serum Glucose 73 L 74-106 mg/dL Problem List Acute medulla oblongata stroke Dysphagia Vertigo, resolved Right hemiparesis New onset left numbness on 04/25/25 with unremarkable MR brain scan Left leg drift, resolved Gait disturbance Right arm weakness and numbness (without drift) Acute Headache since Thanksgi Migraine headache Assessment/Plan Monitoring Supportive treatment Telemetry Aspirin 81 mg daily Stabilize blood pressure Lipitor 40 mg daily later Current pain management DVT prophylaxis GI prophylaxis Avoid Triptan and ergot agents (discussed with her and her ) Speech pathology evaluation Physical therapy More recommendation per clinical course This medical document was created using an electronic medical record system with [employer] dictation system. Although this document has been carefully reviewed, there may still be some phonetic and typographical errors. These areas are purely typographical due to imperfections of the software programs, and do not reflect any compromise in the patient's medical care. Prognosis poor Dietary Evaluation Review Comments: 1. Advance to Soft, texture as tolerated Cardiac diet once passoing [employer]GE ACCOUNT AUTHORIZER eval 2. Consider Tube feeding Jevity @50ml/hr providing 67g Protein 1440kcal if serum glucose remain WNL and PO feeding not medically feasible. Expected Outcomes/Goals: resoloved dysphagia Plan discussed with: Patient, Other HERNAN HOLT MD Apr 28, 2025 21:29
[2025-04-29] VITALS (8 sets, daily range): BP systolic 123–145; BP diastolic 71–92; PULSE 88–102; RESP 17–18; TEMP 97.4–98.2; O2SAT 94–99
[2025-04-29 10:41] LABS: Hematocrit 43.7 % (36.0-46.0); Hemoglobin 14.5 g/dL (12.2-16.2); Mean Corpuscular Hemoglobin 31.7 pg (28.0-32.0); Mean Corpuscular Volume 95.7 fL (80.0-100.0); Nucleated Red Blood Cells % 0.1 %
[2025-04-29 10:52] LABS: Albumin 3.9 g/dL (3.2-4.8); Alkaline Phosphatase 165 U/L (46-116); Anion Gap 9 (5-15); BUN/Creatinine Ratio 13.6 (10.0-20.0); Blood Urea Nitrogen 8 mg/dL (9-23); Calcium 9.4 mg/dL (8.7-10.4); Carbon Dioxide 27 mmol/L (20-31); Chloride 105 mmol/L (98-107); Glucose 134 mg/dL (74-106); Potassium 3.5 mmol/L (3.5-5.1); Sodium 141 mmol/L (136-145); Total Protein 7.0 g/dL (5.7-8.2)
[2025-04-29 10:53] LABS: Alanine Aminotransferase 178 U/L (7-40); Bilirubin, Total 0.4 mg/dL (0.2-1.0)
--- NOTE | 2025-04-29 11:34 | DVHPN2 ---
Progress Note Date Seen: Apr 29, 2025 Resident Creating Document: FORTINO PELLETIER RESIDENT Medical Necessity Reason Pt with a Central, PICC or Fol: No Subjective Review of Systems Reports feeling better, denies vomiting. On tube feedings Failed swallow evaluation Objective vital signs Vital Sign Date Time Temp Pulse Resp B/P (MAP) Pulse Ox O2 Delivery O2 Flow Rate FiO2 04/29/25 10:42 145/92 04/29/25 09:00 97.9 89 17 97 97.9 04/28/25 20:00 Room Air* 0 21 Total Intake and Output 04/28/25 04/28/25 04/29/25 15:00 23:00 07:00 Intake Total 1100 ml 0 ml Balance 1100 ml 0 ml medications Current Medications Medications Dose Ordered Sig/Edouard Route Start Time Stop Time Status Last Admin Dose Admin Ondansetron HCl 4 mg Q4HP PRN IV 04/16/25 04:45 Hold 04/17/25 18:42 4 MG Nitroglycerin 0.4 mg Q5MINP PRN SL 04/16/25 04:45 Meclizine HCl 25 mg Q8HR PO 04/16/25 06:00 04/27/25 13:37 25 MG Acetaminophen 650 mg Q6HP PRN PO 04/16/25 05:30 04/28/25 23:08 650 MG Prochlorperazine Edisylate 10 mg Q4HPRN PRN IV 04/18/25 12:00 04/27/25 13:37 10 MG Pantoprazole Sodium 40 mg DAILY IV 04/19/25 10:00 04/29/25 10:42 40 MG Labetalol HCl 10 mg Q2HPRN PRN IV 04/19/25 17:45 04/22/25 10:28 10 MG Sodium Chloride 1,000 ml @ 80 mls/hr [id number] IV 04/20/25 00:00 04/29/25 10:41 80 MLS/HR Aspirin 325 mg DAILY NG 04/22/25 10:00 04/29/25 10:42 325 MG Enteral Nutritional Formula 1,000 ml 60ML/HR GT 04/22/25 10:45 04/29/25 03:28 1,000 ML Amlodipine Besylate 10 mg DAILY NG 04/23/25 10:00 04/29/25 10:42 10 MG Atorvastatin Calcium 40 mg HS NG 04/22/25 23:15 04/28/25 23:08 40 MG Clopidogrel Bisulfate 75 mg DAILY NG 04/23/25 10:00 04/29/25 10:42 75 MG Lorazepam 1 mg ONCE PRN IV 04/26/25 00:00 Lorazepam 1 mg HS PRN IV 04/29/25 10:30 Examination General: Well-built, afebrile, palor, mucosae are moist Cardiovascular: Regular S1 and S2. No murmurs, gallops or rubs. No JVD elevation. No pedal edema Respiratory: Normal B/L air entry on room air. Clear lung sounds on auscultation Abdomen: Soft, nontender, nondistended, normoactive bowel sounds, no rebound tenderness, no organomegaly, no masses Genitourinary: Deferred Psych/Mental Status: A/Ox3 laboratory and microbiology Laboratory Tests 04/29/25 10:05 Test 04/29/25 10:05 Range/Units Serum Glucose 134 H 74-106 mg/dL Microbiology Date/Time Source Procedure Growth Status 04/20/25 06:40 Nose MRSA Screen - Final Complete Problem List/Assessment/Plan Problem List/Assessment/Plan # Stroke # Migraine # Intractable vomiting # Vertigo # transaminitis Plan Continue tube feedings as tolerated Patient failed swallow evaluation Due to recent transaminitis: Liver ultrasound and acute hepatitis panel GI Services we will follow up Case discussed with Dr Sung Plan discussed with: Patient, Other (rn) Dietary Evaluation Review Comments: 1. Advance to Soft, texture as tolerated Cardiac diet once passoing [employer]CHANT eval 2. Consider Tube feeding Jevity @50ml/hr providing 67g Protein 1440kcal if serum glucose remain WNL and PO feeding not medically feasible. Expected Outcomes/Goals: resoloved dysphagia FORTINO PELLETIER RESIDENT Apr 29, 2025 11:34
--- NOTE | 2025-04-29 14:39 | DVHPN2 ---
Subjective The patient is seen and examined at bedside. Still have left-sided weakness and on tube feeding. Still requiring max assist. Patient had tried to work with physical therapy. Complains that she cannot sleep. Reviewed: Care Plan, H&P, Labs, Medications, Previous Orders, Radiology Changes from previous H/P or p: No Changes Eyes: No Pain, No Vision change, No Conjunctivae inflammation, No Eyelid inflammation, No Other, No Redness ENT: No Ear pain, No Ear discharge, No Nose pain, No Nose discharge, No Nose congestion, No Mouth pain, No Mouth swelling, No Throat pain, No Throat swelling; Other (Tinnitus bilateral ear) Cardiovascular: No Chest Pain, No Palpitations, No Orthopnea, No Paroxysmal Noc. Dyspnea, No Edema, No Lt Headedness, No Other Respiratory: No Cough, No Dry, No Shortness of breath, No SOB with excertion, No Wheezing, No Hemoptysis, No Pleuritic Pain, No Sputum, No Other Gastrointestinal: Nausea, Vomiting; No Abdominal Pain, No Diarrhea, No Constipation, No Melena, No Hematochezia, No Other Genitourinary: No Dysuria, No Frequency, No Incontinence, No Hematuria, No Retention, No Other Musculoskeletal: No other, No neck pain, No shoulder pain, No arm pain, No back pain, No hand pain, No leg pain, No foot pain Skin: No Rash, No Lesions, No Jaundice, No Bruising, No Other Objective Vitals Vital Signs Date Time Temp Pulse Resp B/P (MAP) Pulse Ox O2 Delivery O2 Flow Rate FiO2 04/29/25 12:45 98.0 95 17 135/85 (102) 99 98.0 04/28/25 20:00 Room Air* 0 21 Intake/Output Intake and Output 04/29/25 07:00 Intake Total 1100 ml Balance 1100 ml Intake Oral 1100 ml # Voids 16 General Appearance: Alert, Oriented X3, Cooperative HEENT: Atraumatic, PERRLA, EOMI, Mucous membr. moist/pink Neck: Supple Lungs: Clear to auscultation Cardiovascular: Regular rate, Normal S1, Normal S2 Abdomen: Normal bowel sounds, Soft, No tenderness Musculoskeletal: Other Neuro: Other (Left-sided weakness with dysphagia) Psych/Mental Status: Mental status NL Medications Current Medications Medications Dose Ordered Sig/Edouard Route Start Time Stop Time Status Last Admin Dose Admin Ondansetron HCl 4 mg Q4HP PRN IV 04/16/25 04:45 Hold 04/17/25 18:42 4 MG Nitroglycerin 0.4 mg Q5MINP PRN SL 04/16/25 04:45 Meclizine HCl 25 mg Q8HR PO 04/16/25 06:00 04/27/25 13:37 25 MG Acetaminophen 650 mg Q6HP PRN PO 04/16/25 05:30 04/28/25 23:08 650 MG Prochlorperazine Edisylate 10 mg Q4HPRN PRN IV 04/18/25 12:00 04/27/25 13:37 10 MG Pantoprazole Sodium 40 mg DAILY IV 04/19/25 10:00 04/29/25 10:42 40 MG Labetalol HCl 10 mg Q2HPRN PRN IV 04/19/25 17:45 04/22/25 10:28 10 MG Sodium Chloride 1,000 ml @ 80 mls/hr [id number] IV 04/20/25 00:00 04/29/25 10:41 80 MLS/HR Aspirin 325 mg DAILY NG 04/22/25 10:00 04/29/25 10:42 325 MG Enteral Nutritional Formula 1,000 ml 60ML/HR GT 04/22/25 10:45 04/29/25 03:28 1,000 ML Amlodipine Besylate 10 mg DAILY NG 04/23/25 10:00 04/29/25 10:42 10 MG Atorvastatin Calcium 40 mg HS NG 04/22/25 23:15 04/28/25 23:08 40 MG Clopidogrel Bisulfate 75 mg DAILY NG 04/23/25 10:00 04/29/25 10:42 75 MG Lorazepam 1 mg ONCE PRN IV 04/26/25 00:00 Lorazepam 1 mg HS PRN IV 04/29/25 10:30 Laboratory Results Laboratory Tests 04/29/25 10:05 Chemistry Test 04/29/25 10:05 Albumin 3.9 g/dL (3.2-4.8) Calcium Level 9.4 mg/dL (8.7-10.4) Total Protein 7.0 g/dL (5.7-8.2) LFT Test 04/29/25 10:05 Alanine Aminotransferase (ALT) 178 U/L (7-40) H Alkaline Phosphatase 165 U/L (46-116) H Aspartate Amino Transferase (AST) 151 U/L (13-40) H Total Bilirubin 0.4 mg/dL (0.2-1.0) Urinalysis Test 04/17/25 16:38 Urine Color Yellow (Yellow) Urine Clarity Clear (Clear) Urine pH 6.0 (5.0-9.0) Urine Specific [place] 1.036 (1.001-1.035) Urine Protein Trace (Negative) H Urine Ketones 3+ (Negative) H Urine Blood Trace /uL (Negative) H Urine Nitrite Negative (Negative) Urine Bilirubin Negative (Negative) Urine Urobilinogen Normal mg/dL (Negative) Urine Leukocyte Esterase Negative /uL (Negative) Urine RBC 4 /hpf (0 - 4) Urine Microscopic WBC 3 /HPF (0-5) Urine Squamous Epithelial Cells Few /hpf (<5) Urine Bacteria None seen /hpf (None Seen) Urine Mucus Few (None Seen) Urine Glucose Normal mg/dL (Normal) Urine Test Negative (Negative) Microbiology Microbiology Date/Time Source Procedure Growth Status 04/20/25 06:40 Nose MRSA Screen - Final Complete Labs and/or images reviewed: Labs reviewed by me Assessment/Plan Assessment/Plan Acute ischemic stroke. MRI showed acute stroke 8 mm acute right posterolateral medullary infarct. New weakness on 04/19 Evolving new infarct Continuing current management. Continuing with tube feeding. Continuing swallow evaluation. If the patient pass swallow eval we will anticipate to start food. As right now continuing tube feeding. Physical therapy to get the patient out of bed and ambulate Continuing aspirin and statin Continuing hypertensive medication Swallow evaluation done, per speech therapist, the patient did not pass swallow evaluation. Continue TF, continue NPO Ativan 1mg IV qhs PRN for sleep. This medical document was created using an electronic medical record system with [employer] computerized dictation system. Although this document has been carefully reviewed, there may still be some phonetic and typographical errors. These areas are purely typographical due to imperfections of the software programs, and do not reflect any compromise in the patient's medical care. Plan discussed with: Patient My Orders Orders - PRICILA PEREIRA MD Procedure Category Date Status Time Lorazepam 2mg/Ml Inj PHA 04/29/25 In Process (Ativan Inj) 10:30 Date of Service: Apr 29, 2025 Billing Provider: PRICILA PEREIRA MD Common Visit Codes: [id number] INP/OBS CARE(HIGH) PRICILA PEREIRA MD Apr 29, 2025 14:39
--- NOTE | 2025-04-29 19:04 | DVH ---
INDICATION: transaminitis TECHNIQUE: Multiple real-time sonographic images of the abdomen were obtained. COMPARISON: None FINDINGS: The liver is homogenous in echogenicity. The liver measures 11.45 cm. No intrahepatic biliary ductal dilatation is noted. The gallbladder wall measures 0.11mm and is unremarkable. No gallstones or sludge is seen. The common duct is not visible.. No pericholecystic fluid is noted. The right kidney measures 9.87 cm. No hydronephrosis. An anechoic lesion lower pole right kidney consistent with cortical cyst measuring 1.46 x 1.05 1.31 cm. The pancreas is not well visualized due to obscuration from bowel gas. The visualized portions of the IVC and aorta are grossly unremarkable. IMPRESSION: 1. Liver measures 11.45 cm 2. Gallbladder is normal with no cholelithiasis 3. Pancreas appears normal 4. Right kidney measures 9.87 cm and contains cyst lower pole as measured above.
[2025-04-30] VITALS (8 sets, daily range): BP systolic 102–136; BP diastolic 70–89; PULSE 76–102; RESP 16–18; TEMP 97.8–98.6; O2SAT 96–99
[2025-04-30] MEDS: LORazepam 2MG/ML-1ML VIAL IV PRN (00:11)
[2025-04-30 05:34] LABS: Hematocrit 37.9 % (36.0-46.0); Hemoglobin 12.9 g/dL (12.2-16.2); Mean Corpuscular Hemoglobin 32.4 pg (28.0-32.0); Mean Corpuscular Volume 94.9 fL (80.0-100.0); Nucleated Red Blood Cells % 0.1 %
[2025-04-30 05:53] LABS: Albumin 3.5 g/dL (3.2-4.8); Anion Gap 10 (5-15); BUN/Creatinine Ratio 18.8 (10.0-20.0); Blood Urea Nitrogen 12 mg/dL (9-23); Calcium 8.9 mg/dL (8.7-10.4); Carbon Dioxide 27 mmol/L (20-31); Chloride 105 mmol/L (98-107); Sodium 142 mmol/L (136-145); Total Protein 6.2 g/dL (5.7-8.2)
[2025-04-30 05:54] LABS: Alanine Aminotransferase 139 U/L (7-40); Alkaline Phosphatase 145 U/L (46-116); Bilirubin, Total 0.4 mg/dL (0.2-1.0); Glucose 160 mg/dL (74-106); Potassium 3.2 mmol/L (3.5-5.1)
--- NOTE | 2025-04-30 14:45 | DVHPN2 ---
Subjective The patient is seen and examined at bedside. Still have left-sided weakness and on tube feeding. Still requiring max assist. Patient had tried to work with physical therapy. Complains that she dizzy because of ativan. She said it help her to sleep but make her dizzy today. Reviewed: Care Plan, H&P, Labs, Medications, Previous Orders, Radiology Changes from previous H/P or p: No Changes Eyes: No Pain, No Vision change, No Conjunctivae inflammation, No Eyelid inflammation, No Other, No Redness ENT: No Ear pain, No Ear discharge, No Nose pain, No Nose discharge, No Nose congestion, No Mouth pain, No Mouth swelling, No Throat pain, No Throat swelling; Other (Tinnitus bilateral ear) Cardiovascular: No Chest Pain, No Palpitations, No Orthopnea, No Paroxysmal Noc. Dyspnea, No Edema, No Lt Headedness, No Other Respiratory: No Cough, No Dry, No Shortness of breath, No SOB with excertion, No Wheezing, No Hemoptysis, No Pleuritic Pain, No Sputum, No Other Gastrointestinal: Nausea, Vomiting; No Abdominal Pain, No Diarrhea, No Constipation, No Melena, No Hematochezia, No Other Genitourinary: No Dysuria, No Frequency, No Incontinence, No Hematuria, No Retention, No Other Musculoskeletal: No other, No neck pain, No shoulder pain, No arm pain, No back pain, No hand pain, No leg pain, No foot pain Skin: No Rash, No Lesions, No Jaundice, No Bruising, No Other Objective Vitals Vital Signs Date Time Temp Pulse Resp B/P (MAP) Pulse Ox O2 Delivery O2 Flow Rate FiO2 04/30/25 13:00 97.8 78 18 136/89 (105) 97 97.8 04/30/25 08:00 Room Air* 0 21 Intake/Output Intake and Output 04/30/25 07:00 Intake Total 0 ml Output Total 650 ml Balance -650 ml Intake Oral 0 ml Output Urine Total 650 ml # Voids 5 # Bowel Movements 2 General Appearance: Alert, Oriented X3, Cooperative HEENT: Atraumatic, PERRLA, EOMI, Mucous membr. moist/pink Neck: Supple Lungs: Clear to auscultation Cardiovascular: Regular rate, Normal S1, Normal S2 Abdomen: Normal bowel sounds, Soft, No tenderness Musculoskeletal: Other Neuro: Other (Left-sided weakness with dysphagia) Psych/Mental Status: Mental status NL Medications Current Medications Medications Dose Ordered Sig/Edouard Route Start Time Stop Time Status Last Admin Dose Admin Ondansetron HCl 4 mg Q4HP PRN IV 04/16/25 04:45 Hold 04/17/25 18:42 4 MG Nitroglycerin 0.4 mg Q5MINP PRN SL 04/16/25 04:45 Meclizine HCl 25 mg Q8HR PO 04/16/25 06:00 04/27/25 13:37 25 MG Acetaminophen 650 mg Q6HP PRN PO 04/16/25 05:30 04/30/25 08:54 650 MG Prochlorperazine Edisylate 10 mg Q4HPRN PRN IV 04/18/25 12:00 04/27/25 13:37 10 MG Pantoprazole Sodium 40 mg DAILY IV 04/19/25 10:00 04/30/25 08:53 40 MG Labetalol HCl 10 mg Q2HPRN PRN IV 04/19/25 17:45 04/22/25 10:28 10 MG Sodium Chloride 1,000 ml @ 80 mls/hr [id number] IV 04/20/25 00:00 04/29/25 10:41 80 MLS/HR Aspirin 325 mg DAILY NG 04/22/25 10:00 04/30/25 08:53 325 MG Enteral Nutritional Formula 1,000 ml 60ML/HR GT 04/22/25 10:45 04/30/25 06:23 1,000 ML Amlodipine Besylate 10 mg DAILY NG 04/23/25 10:00 04/30/25 08:53 10 MG Atorvastatin Calcium 40 mg HS NG 04/22/25 23:15 04/29/25 21:23 40 MG Clopidogrel Bisulfate 75 mg DAILY NG 04/23/25 10:00 04/30/25 08:53 75 MG Lorazepam 1 mg ONCE PRN IV 04/26/25 00:00 Lorazepam 1 mg HS PRN IV 04/29/25 10:30 04/30/25 00:11 1 MG Laboratory Results Laboratory Tests 04/30/25 05:14 Chemistry Test 04/30/25 05:14 Albumin 3.5 g/dL (3.2-4.8) Calcium Level 8.9 mg/dL (8.7-10.4) Total Protein 6.2 g/dL (5.7-8.2) LFT Test 04/30/25 05:14 Alanine Aminotransferase (ALT) 139 U/L (7-40) H Alkaline Phosphatase 145 U/L (46-116) H Aspartate Amino Transferase (AST) 91 U/L (13-40) H Total Bilirubin 0.4 mg/dL (0.2-1.0) Urinalysis Test 04/17/25 16:38 Urine Color Yellow (Yellow) Urine Clarity Clear (Clear) Urine pH 6.0 (5.0-9.0) Urine Specific [place] 1.036 (1.001-1.035) Urine Protein Trace (Negative) H Urine Ketones 3+ (Negative) H Urine Blood Trace /uL (Negative) H Urine Nitrite Negative (Negative) Urine Bilirubin Negative (Negative) Urine Urobilinogen Normal mg/dL (Negative) Urine Leukocyte Esterase Negative /uL (Negative) Urine RBC 4 /hpf (0 - 4) Urine Microscopic WBC 3 /HPF (0-5) Urine Squamous Epithelial Cells Few /hpf (<5) Urine Bacteria None seen /hpf (None Seen) Urine Mucus Few (None Seen) Urine Glucose Normal mg/dL (Normal) Urine Test Negative (Negative) Microbiology Microbiology Date/Time Source Procedure Growth Status 04/20/25 06:40 Nose MRSA Screen - Final Complete Labs and/or images reviewed: Labs reviewed by me Assessment/Plan Assessment/Plan Acute ischemic stroke. MRI showed acute stroke 8 mm acute right posterolateral medullary infarct. New weakness on 04/19 Evolving new infarct Continuing current management. Continuing with tube feeding. Continuing swallow evaluation. If the patient pass swallow eval we will anticipate to start food. As right now continuing tube feeding. Physical therapy to get the patient out of bed and ambulate Continuing aspirin and statin Continuing hypertensive medication Swallow evaluation done, per speech therapist, the patient did not pass swallow evaluation. Continue TF, continue NPO Will dc ativan. This medical document was created using an electronic medical record system with M*M [employer]rency direct computerized dictation system. Although this document has been carefully reviewed, there may still be some phonetic and typographical errors. These areas are purely typographical due to imperfections of the software programs, and do not reflect any compromise in the patient's medical care. Plan discussed with: Patient Date of Service: Apr 30, 2025 Billing Provider: PRICILA PEREIRA MD Common Visit Codes: [id number] INP/OBS CARE(HIGH) PRICILA PEREIRA MD Apr 30, 2025 14:45
[2025-05-01] VITALS (8 sets, daily range): BP systolic 116–137; BP diastolic 69–89; PULSE 81–100; RESP 15–18; TEMP 98.3–98.6; O2SAT 94–98
[2025-05-01] MEDS ORDERED: SENNA 8.6 MG TAB PO PRN (14:00)
--- NOTE | 2025-05-01 14:19 | DVHPN2 ---
Subjective The patient is seen and examined at bedside. Still have left-sided weakness and on tube feeding. Still requiring max assist. Patient had tried to work with physical therapy. Reviewed: Care Plan, H&P, Labs, Medications, Previous Orders, Radiology Changes from previous H/P or p: No Changes Eyes: No Pain, No Vision change, No Conjunctivae inflammation, No Eyelid inflammation, No Other, No Redness ENT: No Ear pain, No Ear discharge, No Nose pain, No Nose discharge, No Nose congestion, No Mouth pain, No Mouth swelling, No Throat pain, No Throat swelling; Other (Tinnitus bilateral ear) Cardiovascular: No Chest Pain, No Palpitations, No Orthopnea, No Paroxysmal Noc. Dyspnea, No Edema, No Lt Headedness, No Other Respiratory: No Cough, No Dry, No Shortness of breath, No SOB with excertion, No Wheezing, No Hemoptysis, No Pleuritic Pain, No Sputum, No Other Gastrointestinal: Nausea, Vomiting; No Abdominal Pain, No Diarrhea, No Constipation, No Melena, No Hematochezia, No Other Genitourinary: No Dysuria, No Frequency, No Incontinence, No Hematuria, No Retention, No Other Musculoskeletal: No other, No neck pain, No shoulder pain, No arm pain, No back pain, No hand pain, No leg pain, No foot pain Skin: No Rash, No Lesions, No Jaundice, No Bruising, No Other Objective Vitals Vital Signs Date Time Temp Pulse Resp B/P (MAP) Pulse Ox O2 Delivery O2 Flow Rate FiO2 05/01/25 11:23 98.6 94 18 118/69 (85) 96 98.6 05/01/25 08:00 Room Air* 0 21 Intake/Output Intake and Output 05/01/25 07:00 Intake Total 0 ml Output Total 1000 ml Balance -1000 ml Intake Oral 0 ml Output Urine Total 1000 ml # Voids 12 General Appearance: Alert, Oriented X3, Cooperative HEENT: Atraumatic, PERRLA, EOMI, Mucous membr. moist/pink Neck: Supple Lungs: Clear to auscultation Cardiovascular: Regular rate, Normal S1, Normal S2 Abdomen: Normal bowel sounds, Soft, No tenderness Musculoskeletal: Other Neuro: Other (Left-sided weakness with dysphagia) Psych/Mental Status: Mental status NL Medications Current Medications Medications Dose Ordered Sig/Edouard Route Start Time Stop Time Status Last Admin Dose Admin Ondansetron HCl 4 mg Q4HP PRN IV 04/16/25 04:45 Hold 04/17/25 18:42 4 MG Nitroglycerin 0.4 mg Q5MINP PRN SL 04/16/25 04:45 Meclizine HCl 25 mg Q8HR PO 04/16/25 06:00 04/27/25 13:37 25 MG Acetaminophen 650 mg Q6HP PRN PO 04/16/25 05:30 05/01/25 08:08 650 MG Prochlorperazine Edisylate 10 mg Q4HPRN PRN IV 04/18/25 12:00 04/27/25 13:37 10 MG Pantoprazole Sodium 40 mg DAILY IV 04/19/25 10:00 05/01/25 08:07 40 MG Labetalol HCl 10 mg Q2HPRN PRN IV 04/19/25 17:45 04/22/25 10:28 10 MG Sodium Chloride 1,000 ml @ 80 mls/hr [id number] IV 04/20/25 00:00 04/30/25 17:11 80 MLS/HR Aspirin 325 mg DAILY NG 04/22/25 10:00 05/01/25 08:07 325 MG Enteral Nutritional Formula 1,000 ml 60ML/HR GT 04/22/25 10:45 05/01/25 07:07 1,000 ML Amlodipine Besylate 10 mg DAILY NG 04/23/25 10:00 05/01/25 08:07 10 MG Atorvastatin Calcium 40 mg HS NG 04/22/25 23:15 04/30/25 21:03 40 MG Clopidogrel Bisulfate 75 mg DAILY NG 04/23/25 10:00 05/01/25 08:07 75 MG Lorazepam 1 mg ONCE PRN IV 04/26/25 00:00 Lorazepam 1 mg HS PRN IV 04/29/25 10:30 04/30/25 00:11 1 MG Sennosides 8.6 mg [id number] PRN PO 05/01/25 14:00 Laboratory Results Laboratory Tests 04/30/25 05:14 Urinalysis Test 04/17/25 16:38 Urine Color Yellow (Yellow) Urine Clarity Clear (Clear) Urine pH 6.0 (5.0-9.0) Urine Specific [place] 1.036 (1.001-1.035) Urine Protein Trace (Negative) H Urine Ketones 3+ (Negative) H Urine Blood Trace /uL (Negative) H Urine Nitrite Negative (Negative) Urine Bilirubin Negative (Negative) Urine Urobilinogen Normal mg/dL (Negative) Urine Leukocyte Esterase Negative /uL (Negative) Urine RBC 4 /hpf (0 - 4) Urine Microscopic WBC 3 /HPF (0-5) Urine Squamous Epithelial Cells Few /hpf (<5) Urine Bacteria None seen /hpf (None Seen) Urine Mucus Few (None Seen) Urine Glucose Normal mg/dL (Normal) Urine Test Negative (Negative) Microbiology Microbiology Date/Time Source Procedure Growth Status 04/20/25 06:40 Nose MRSA Screen - Final Complete Labs and/or images reviewed: Labs reviewed by me Assessment/Plan Assessment/Plan Acute ischemic stroke. MRI showed acute stroke 8 mm acute right posterolateral medullary infarct. New weakness on 04/19 Evolving new infarct Continuing current management. Continuing with tube feeding. Continuing swallow evaluation. If the patient pass swallow eval we will anticipate to start food. As right now continuing tube feeding. Physical therapy to get the patient out of bed and ambulate Continuing aspirin and statin Continuing hypertensive medication Swallow evaluation done, per speech therapist, the patient did not pass swallow evaluation. Continue TF, continue NPO Will dc ativan. Repeat swallow evaluation again in am This medical document was created using an electronic medical record system with M*M [employer] direct computerized dictation system. Although this document has been carefully reviewed, there may still be some phonetic and typographical errors. These areas are purely typographical due to imperfections of the software programs, and do not reflect any compromise in the patient's medical care. Plan discussed with: Patient My Orders Orders - PRICILA PEREIRA MD Procedure Category Date Status Time * Swallow Request ST 05/01/25 Transmitted 13:52 Complete Blood Count LAB 05/01/25 Logged 13:52 Basic Metabolic Panel LAB 05/01/25 Logged 13:52 Complete Blood Count LAB 05/02/25 Verified 04:00 Basic Metabolic Panel LAB 05/02/25 Verified 04:00 Potassium Chloride PHA 05/01/25 In Process (Potassium Chloride). 14:00 Senna Pod Tablet PHA 05/01/25 In Process (Senokot Tablet) 14:00 Date of Service: May 01, 2025 Billing Provider: PRICILA PEREIRA MD Common Visit Codes: [id number] INP/OBS CARE(HIGH) PRICILA PEREIRA MD May 01, 2025 14:19
[2025-05-01 14:31] LABS: Hematocrit 40.1 % (36.0-46.0); Hemoglobin 13.8 g/dL (12.2-16.2); Mean Corpuscular Hemoglobin 32.5 pg (28.0-32.0); Mean Corpuscular Volume 94.3 fL (80.0-100.0); Nucleated Red Blood Cells % 0.0 %
[2025-05-01 14:33] LABS: Chloride 103 mmol/L (98-107); Potassium 3.6 mmol/L (3.5-5.1); Sodium 141 mmol/L (136-145)
[2025-05-01 14:34] LABS: Anion Gap 10 (5-15); Carbon Dioxide 28 mmol/L (20-31)
[2025-05-01 14:35] LABS: Calcium 9.0 mg/dL (8.7-10.4)
[2025-05-01 14:39] LABS: BUN/Creatinine Ratio 17.5 (10.0-20.0); Blood Urea Nitrogen 11 mg/dL (9-23)
[2025-05-01 14:41] LABS: Glucose 126 mg/dL (74-106)
[2025-05-01] MEDS: POTASSIUM CHLORIDE 40 MEQ, LIDOCAINE 1% (LOCAL ANESTH.) 4 ML in SODIUM CHL 0.9% 250 ML IV ONE (14:45)
[2025-05-01] MEDS: ACETAMINOPHEN 650 mg PER 20.3 mL UD NG PRN (22:20)
[2025-05-02] VITALS (9 sets, daily range): BP systolic 125–141; BP diastolic 74–87; PULSE 77–113; RESP 16–18; TEMP 97.6–98.5; O2SAT 97–98
[2025-05-02 07:15] LABS: Hematocrit 42.6 % (36.0-46.0); Hemoglobin 14.4 g/dL (12.2-16.2); Mean Corpuscular Hemoglobin 32.1 pg (28.0-32.0); Mean Corpuscular Volume 94.8 fL (80.0-100.0); Nucleated Red Blood Cells % 0.0 %
[2025-05-02 07:25] LABS: Anion Gap 10 (5-15); Carbon Dioxide 29 mmol/L (20-31); Chloride 102 mmol/L (98-107); Potassium 3.8 mmol/L (3.5-5.1); Sodium 141 mmol/L (136-145)
[2025-05-02 07:27] LABS: Calcium 9.7 mg/dL (8.7-10.4)
[2025-05-02 07:32] LABS: BUN/Creatinine Ratio 14.5 (10.0-20.0); Blood Urea Nitrogen 9 mg/dL (9-23); Glucose 104 mg/dL (74-106)
[2025-05-02 10:21] LABS: Hepatitis B Surface Antigen Negative (Negative)
[2025-05-02 10:29] LABS: Hepatitis C Antibody Negative (Negative)
--- NOTE | 2025-05-02 12:07 | DVHPN2 ---
Subjective The patient is seen and examined at bedside. Still have left-sided weakness and on tube feeding. Still requiring max assist. Patient had tried to work with physical therapy. Complains of dizziness. Reviewed: Care Plan, H&P, Labs, Medications, Previous Orders, Radiology Changes from previous H/P or p: No Changes Eyes: No Pain, No Vision change, No Conjunctivae inflammation, No Eyelid inflammation, No Other, No Redness ENT: No Ear pain, No Ear discharge, No Nose pain, No Nose discharge, No Nose congestion, No Mouth pain, No Mouth swelling, No Throat pain, No Throat swelling; Other (Tinnitus bilateral ear) Cardiovascular: No Chest Pain, No Palpitations, No Orthopnea, No Paroxysmal Noc. Dyspnea, No Edema, No Lt Headedness, No Other Respiratory: No Cough, No Dry, No Shortness of breath, No SOB with excertion, No Wheezing, No Hemoptysis, No Pleuritic Pain, No Sputum, No Other Gastrointestinal: Nausea, Vomiting; No Abdominal Pain, No Diarrhea, No Constipation, No Melena, No Hematochezia, No Other Genitourinary: No Dysuria, No Frequency, No Incontinence, No Hematuria, No Retention, No Other Musculoskeletal: No other, No neck pain, No shoulder pain, No arm pain, No back pain, No hand pain, No leg pain, No foot pain Skin: No Rash, No Lesions, No Jaundice, No Bruising, No Other Objective Vitals Vital Signs Date Time Temp Pulse Resp B/P (MAP) Pulse Ox O2 Delivery O2 Flow Rate FiO2 05/02/25 09:30 125/75 05/02/25 09:29 98.5 84 17 97 98.5 05/02/25 08:20 Room Air* 0 21 Intake/Output Intake and Output 05/02/25 07:00 Intake Total 1074 ml Balance 1074 ml Intake Oral 0 ml IV Total 274 ml Tube Feeding 800 ml # Voids 10 # Bowel Movements 1 General Appearance: Alert, Oriented X3, Cooperative HEENT: Atraumatic, PERRLA, EOMI, Mucous membr. moist/pink Neck: Supple Lungs: Clear to auscultation Cardiovascular: Regular rate, Normal S1, Normal S2 Abdomen: Normal bowel sounds, Soft, No tenderness Musculoskeletal: Other Neuro: Other (Left-sided weakness with dysphagia) Psych/Mental Status: Mental status NL Medications Current Medications Medications Dose Ordered Sig/Edouard Route Start Time Stop Time Status Last Admin Dose Admin Ondansetron HCl 4 mg Q4HP PRN IV 04/16/25 04:45 Hold 04/17/25 18:42 4 MG Nitroglycerin 0.4 mg Q5MINP PRN SL 04/16/25 04:45 Meclizine HCl 25 mg Q8HR PO 04/16/25 06:00 04/27/25 13:37 25 MG Prochlorperazine Edisylate 10 mg Q4HPRN PRN IV 04/18/25 12:00 04/27/25 13:37 10 MG Pantoprazole Sodium 40 mg DAILY IV 04/19/25 10:00 05/02/25 09:26 40 MG Labetalol HCl 10 mg Q2HPRN PRN IV 04/19/25 17:45 04/22/25 10:28 10 MG Sodium Chloride 1,000 ml @ 80 mls/hr [id number] IV 04/20/25 00:00 05/02/25 09:50 80 MLS/HR Aspirin 325 mg DAILY NG 04/22/25 10:00 05/02/25 09:29 325 MG Enteral Nutritional Formula 1,000 ml 60ML/HR GT 04/22/25 10:45 05/02/25 01:32 1,000 ML Amlodipine Besylate 10 mg DAILY NG 04/23/25 10:00 05/02/25 09:30 10 MG Atorvastatin Calcium 40 mg HS NG 04/22/25 23:15 04/30/25 21:03 40 MG Clopidogrel Bisulfate 75 mg DAILY NG 04/23/25 10:00 05/02/25 09:30 75 MG Lorazepam 1 mg ONCE PRN IV 04/26/25 00:00 Lorazepam 1 mg HS PRN IV 04/29/25 10:30 04/30/25 00:11 1 MG Sennosides 8.6 mg [id number] PRN PO 05/01/25 14:00 Acetaminophen 650 mg Q6HP PRN NG 05/01/25 22:15 05/02/25 06:25 650 MG Laboratory Results Laboratory Tests 05/02/25 06:15 Chemistry Test 05/01/25 14:14 05/02/25 06:15 Calcium Level 9.0 mg/dL (8.7-10.4) 9.7 mg/dL (8.7-10.4) Urinalysis Test 04/17/25 16:38 Urine Color Yellow (Yellow) Urine Clarity Clear (Clear) Urine pH 6.0 (5.0-9.0) Urine Specific [place] 1.036 (1.001-1.035) Urine Protein Trace (Negative) H Urine Ketones 3+ (Negative) H Urine Blood Trace /uL (Negative) H Urine Nitrite Negative (Negative) Urine Bilirubin Negative (Negative) Urine Urobilinogen Normal mg/dL (Negative) Urine Leukocyte Esterase Negative /uL (Negative) Urine RBC 4 /hpf (0 - 4) Urine Microscopic WBC 3 /HPF (0-5) Urine Squamous Epithelial Cells Few /hpf (<5) Urine Bacteria None seen /hpf (None Seen) Urine Mucus Few (None Seen) Urine Glucose Normal mg/dL (Normal) Urine Test Negative (Negative) Microbiology Microbiology Date/Time Source Procedure Growth Status 04/20/25 06:40 Nose MRSA Screen - Final Complete Labs and/or images reviewed: Labs reviewed by me Assessment/Plan Assessment/Plan Acute ischemic stroke. MRI showed acute stroke 8 mm acute right posterolateral medullary infarct. New weakness on 04/19 Evolving new infarct Dizziness. Continuing current management. Continuing with tube feeding. Continuing swallow evaluation. If the patient pass swallow eval we will anticipate to start food. As right now continuing tube feeding. Physical therapy to get the patient out of bed and ambulate Continuing aspirin and statin Continuing hypertensive medication Swallow evaluation done, per speech therapist, the patient did not pass swallow evaluation. Continue TF, continue NPO Will dc ativan. Repeat swallow evaluation again in am Will give meclizine. if not improved may need repeat CT to see if more CVA has involving. This medical document was created using an electronic medical record system with M*M [employer] direct computerized dictation system. Although this document has been carefully reviewed, there may still be some phonetic and typographical errors. These areas are purely typographical due to imperfections of the software programs, and do not reflect any compromise in the patient's medical care. Plan discussed with: Patient, Other (RN) My Orders Orders - PRICILA PEREIRA MD Procedure Category Date Status Time * Swallow Request ST 05/01/25 Transmitted 13:52 Senna Pod Tablet PHA 05/01/25 In Process (Senokot Tablet) 14:00 Date of Service: May 02, 2025 Billing Provider: PRICILA PEREIRA MD Common Visit Codes: [id number] INP/OBS CARE(HIGH) PRICILA PEREIRA MD May 02, 2025 12:07
[2025-05-02] MEDS: MECLIZINE HCL 25 MG TAB PO ONE (13:48)
--- NOTE | 2025-05-02 18:56 | DVHPN2 ---
Progress Note - Dictate Date Seen: May 02, 2025 Medical Necessity Reason Pt with a Central, PICC or Fol: No Subjective The patient is seen and examined at bedside. Still have left-sided weakness and on tube feeding. Still requiring max assist. Patient had tried to work with physical therapy. Reports feeling better, denies vomiting. Vertigo Improving Failed swallow evaluation last week vital signs Vital Sign Date Time Temp Pulse Resp B/P (MAP) Pulse Ox O2 Delivery O2 Flow Rate FiO2 05/02/25 16:38 97.6 89 17 125/74 (91) 97 97.6 05/02/25 08:20 Room Air* 0 21 Total Intake and Output 05/01/25 05/01/25 05/02/25 15:00 23:00 07:00 Intake Total 0 ml 274 ml 800 ml Balance 0 ml 274 ml 800 ml medications Current Medications Medications Dose Ordered Sig/Edouard Route Start Time Stop Time Status Last Admin Dose Admin Ondansetron HCl 4 mg Q4HP PRN IV 04/16/25 04:45 Hold 04/17/25 18:42 4 MG Nitroglycerin 0.4 mg Q5MINP PRN SL 04/16/25 04:45 Meclizine HCl 25 mg Q8HR PO 04/16/25 06:00 04/27/25 13:37 25 MG Prochlorperazine Edisylate 10 mg Q4HPRN PRN IV 04/18/25 12:00 04/27/25 13:37 10 MG Pantoprazole Sodium 40 mg DAILY IV 04/19/25 10:00 05/02/25 09:26 40 MG Labetalol HCl 10 mg Q2HPRN PRN IV 04/19/25 17:45 04/22/25 10:28 10 MG Sodium Chloride 1,000 ml @ 80 mls/hr [id number] IV 04/20/25 00:00 05/02/25 09:50 80 MLS/HR Aspirin 325 mg DAILY NG 04/22/25 10:00 05/02/25 09:29 325 MG Enteral Nutritional Formula 1,000 ml 60ML/HR GT 04/22/25 10:45 05/02/25 01:32 1,000 ML Amlodipine Besylate 10 mg DAILY NG 04/23/25 10:00 05/02/25 09:30 10 MG Atorvastatin Calcium 40 mg HS NG 04/22/25 23:15 04/30/25 21:03 40 MG Clopidogrel Bisulfate 75 mg DAILY NG 04/23/25 10:00 05/02/25 09:30 75 MG Lorazepam 1 mg ONCE PRN IV 04/26/25 00:00 Lorazepam 1 mg HS PRN IV 04/29/25 10:30 04/30/25 00:11 1 MG Sennosides 8.6 mg [id number] PRN PO 05/01/25 14:00 Acetaminophen 650 mg Q6HP PRN NG 05/01/25 22:15 05/02/25 06:25 650 MG objective General: Well-built, afebrile, palor, mucosae are moist Cardiovascular: Regular S1 and S2. No murmurs, gallops or rubs. No JVD elevation. No pedal edema Respiratory: Normal B/L air entry on room air. Clear lung sounds on auscultation Abdomen: Soft, nontender, nondistended, normoactive bowel sounds, no rebound tenderness, no organomegaly, no masses Genitourinary: Deferred Psych/Mental Status: A/Ox3 laboratory and microbiology Laboratory Tests 05/02/25 06:15 Test 05/02/25 06:15 Range/Units Serum Glucose 104 74-106 mg/dL Problems(with codes): (1) Stroke (2) Migraine (3) Intractable vomiting (4) Vertigo Prognosis Acute ischemic stroke. MRI showed acute stroke 8 mm acute right posterolateral medullary infarct. New weakness on 04/19 Evolving new infarct Continuing current management. Continuing with tube feeding. Continuing swallow evaluation. If the patient pass swallow eval we will anticipate to start food. As right now continuing tube feeding. Physical therapy to get the patient out of bed and ambulate Continuing aspirin and statin Continuing hypertensive medication Swallow evaluation done, per speech therapist, the patient did not pass swallow evaluation. Continue TF, continue NPO Will dc ativan. Repeat swallow evaluation again in am Dietary Evaluation Review Comments: 1. Advance to Soft, texture as tolerated Cardiac diet once passoing [employer] eval 2. Consider Tube feeding Jevity @50ml/hr providing 67g Protein 1440kcal if serum glucose remain WNL and PO feeding not medically feasible. Expected Outcomes/Goals: resoloved dysphagia Plan discussed with: Other (Nurse) SOLEDAD MCGOWAN MD May 02, 2025 18:56
--- NOTE | 2025-05-02 22:10 | DVHPN2 ---
Progress Note - Dictate Date Seen: May 02, 2025 Medical Necessity Reason Pt with a Central, PICC or Fol: No Subjective Ms. Gamboa is a 54 years old right-handed female with a history of hypertension, she came to the [facility] on 04/15/2025 with a chief company of dizziness. I have seen and examined the patient talked to her nurse. She is alert and fully oriented, with is still low, records walking with therapist to bathroom only She reports dizziness/spinning sensation on standing up, improved after he sat back UDS, 04/17/2025: Negative Urinalysis, 04/17/2025: Unremarkable CBC 04/19/25: ok Na, 04/16/25: 141. 04/19/25: 150 Bun/Cr 04/19/25: 36/0.75 HCO3 04/19/25: 17 LFT 04/19/25: ok TG/HDL/LDL/HDL, 04/16/2025: 69/224/129/83 Vitamin B12, 04/16/25: 472 TSH, 04/16/2025: 0.1 CT head, 04/16/25: No acute intracranial abnormality. CT head, 04/19/2025: 1. Evolving acute infarct within the right medulla, better delineated on recent MRI. 2. No acute intracranial hemorrhage CTA head, neck, 04/18/2025: No acute CTA abnormality of the major head and neck arterial vasculature MRI head, 04/17/2025: 8 mm acute right posterolateral medullary infarct MRI head, 04/20/2025: No significant interval change. Redemonstration of an acute infarct within the right posterolateral medulla. MR head, 04/25/2025: Acute infarct involving the right medulla (The infarct within the right medulla has slightly improved and is going through evolution since prior exam 04/20/2025 vital signs Vital Sign Date Time Temp Pulse Resp B/P (MAP) Pulse Ox O2 Delivery O2 Flow Rate FiO2 05/02/25 16:38 97.6 89 17 125/74 (91) 97 97.6 05/02/25 08:20 Room Air* 0 21 Total Intake and Output 05/01/25 05/01/25 05/02/25 15:00 23:00 07:00 Intake Total 0 ml 274 ml 800 ml Balance 0 ml 274 ml 800 ml medications Current Medications Medications Dose Ordered Sig/Edouard Route Start Time Stop Time Status Last Admin Dose Admin Ondansetron HCl 4 mg Q4HP PRN IV 04/16/25 04:45 Hold 04/17/25 18:42 4 MG Nitroglycerin 0.4 mg Q5MINP PRN SL 04/16/25 04:45 Meclizine HCl 25 mg Q8HR PO 04/16/25 06:00 04/27/25 13:37 25 MG Prochlorperazine Edisylate 10 mg Q4HPRN PRN IV 04/18/25 12:00 04/27/25 13:37 10 MG Pantoprazole Sodium 40 mg DAILY IV 04/19/25 10:00 05/02/25 09:26 40 MG Labetalol HCl 10 mg Q2HPRN PRN IV 04/19/25 17:45 04/22/25 10:28 10 MG Sodium Chloride 1,000 ml @ 80 mls/hr [id number] IV 04/20/25 00:00 05/02/25 09:50 80 MLS/HR Aspirin 325 mg DAILY NG 04/22/25 10:00 05/02/25 09:29 325 MG Enteral Nutritional Formula 1,000 ml 60ML/HR GT 04/22/25 10:45 05/02/25 01:32 1,000 ML Amlodipine Besylate 10 mg DAILY NG 04/23/25 10:00 05/02/25 09:30 10 MG Atorvastatin Calcium 40 mg HS NG 04/22/25 23:15 04/30/25 21:03 40 MG Clopidogrel Bisulfate 75 mg DAILY NG 04/23/25 10:00 05/02/25 09:30 75 MG Lorazepam 1 mg ONCE PRN IV 04/26/25 00:00 Lorazepam 1 mg HS PRN IV 04/29/25 10:30 04/30/25 00:11 1 MG Sennosides 8.6 mg [id number] PRN PO 05/01/25 14:00 Acetaminophen 650 mg Q6HP PRN NG 05/01/25 22:15 05/02/25 06:25 650 MG objective General: the patient is well developed and nourished. No acute distress. MENTAL STATUS: Subjective SPEECH, LANGUAGE, HIGHER CORTICAL FUNCTION: no aphasia, the voice stronger, but still low CRANIAL NERVES: Pupils are equal, round and reactive, 2 mm. EOMs full and conjugate. No nystagmus. Diminished pinprick and light touch in the left face. Mandibular strength intact. Facial muscles symmetrical and strength intact. Tongue midline. No fasciculations or atrophy. SENSATION: Sensation to touch and pinprick is diminished in the left arm than leg MOTOR: Normal tone in the upper and lower extremity. Normal muscle bulk. No fasciculations. No abnormal movements or posturing. Muscle strength of the major groups in the extremities is 5/5 REFLEXES: Deep tendon reflexes are symmetrical. No pathological reflexes. CEREBELLAR/COORDINATION: Finger to nose is normal GAIT/STATION: deferred. laboratory and microbiology Laboratory Tests 05/02/25 06:15 Test 05/02/25 06:15 Range/Units Serum Glucose 104 74-106 mg/dL Problem List Acute medulla oblongata stroke Dysphagia Vertigo, resolved Right hemiparesis New onset left numbness on 04/25/25 with unremarkable MR brain scan Left leg drift, resolved Gait disturbance Right arm weakness and numbness (without drift) Acute Headache since Thanksgi Migraine headache Assessment/Plan Monitoring Supportive treatment Telemetry Aspirin 81 mg daily Stabilize blood pressure Lipitor 40 mg daily later Current pain management DVT prophylaxis GI prophylaxis Avoid Triptan and ergot agents (discussed with her and her ) Speech pathology evaluation Physical therapy Up to chair Elevated the bed head More recommendation per clinical course This medical document was created using an electronic medical record system with Post-i dictation system. Although this document has been carefully reviewed, there may still be some phonetic and typographical errors. These areas are purely typographical due to imperfections of the software programs, and do not reflect any compromise in the patient's medical care. Prognosis poor Dietary Evaluation Review Comments: 1. Advance to Soft, texture as tolerated Cardiac diet once passoing PRODUCTION CELL LEADER eval 2. Consider Tube feeding Jevity @50ml/hr providing 67g Protein 1440kcal if serum glucose remain WNL and PO feeding not medically feasible. Expected Outcomes/Goals: resoloved dysphagia Plan discussed with: Patient, Other HERNAN HOLT MD May 02, 2025 22:10
[2025-05-03] VITALS (9 sets, daily range): BP systolic 111–128; BP diastolic 72–84; PULSE 77–96; RESP 16–18; TEMP 97.5–98.5; O2SAT 97–98
--- NOTE | 2025-05-03 11:58 | DVHPN2 ---
Subjective The patient is seen and examined at bedside. Still have left-sided weakness and on tube feeding. Still requiring max assist. Patient had tried to work with physical therapy. Complains of dizziness. Reviewed: Care Plan, H&P, Labs, Medications, Previous Orders, Radiology Changes from previous H/P or p: No Changes Eyes: No Pain, No Vision change, No Conjunctivae inflammation, No Eyelid inflammation, No Other, No Redness ENT: No Ear pain, No Ear discharge, No Nose pain, No Nose discharge, No Nose congestion, No Mouth pain, No Mouth swelling, No Throat pain, No Throat swelling; Other (Tinnitus bilateral ear) Cardiovascular: No Chest Pain, No Palpitations, No Orthopnea, No Paroxysmal Noc. Dyspnea, No Edema, No Lt Headedness, No Other Respiratory: No Cough, No Dry, No Shortness of breath, No SOB with excertion, No Wheezing, No Hemoptysis, No Pleuritic Pain, No Sputum, No Other Gastrointestinal: Nausea, Vomiting; No Abdominal Pain, No Diarrhea, No Constipation, No Melena, No Hematochezia, No Other Genitourinary: No Dysuria, No Frequency, No Incontinence, No Hematuria, No Retention, No Other Musculoskeletal: No other, No neck pain, No shoulder pain, No arm pain, No back pain, No hand pain, No leg pain, No foot pain Skin: No Rash, No Lesions, No Jaundice, No Bruising, No Other Objective Vitals Vital Signs Date Time Temp Pulse Resp B/P (MAP) Pulse Ox O2 Delivery O2 Flow Rate FiO2 05/03/25 09:10 125/84 05/03/25 08:47 97.9 77 16 97 97.9 05/03/25 08:20 Room Air* 0 21 Intake/Output Intake and Output 05/03/25 07:00 Intake Total 935 ml Balance 935 ml Intake Oral 0 ml IV Total 120 ml Tube Feeding 715 ml Other 100 ml # Voids 8 General Appearance: Alert, Oriented X3, Cooperative HEENT: Atraumatic, PERRLA, EOMI, Mucous membr. moist/pink Neck: Supple Lungs: Clear to auscultation Cardiovascular: Regular rate, Normal S1, Normal S2 Abdomen: Normal bowel sounds, Soft, No tenderness Musculoskeletal: Other Neuro: Other (Left-sided weakness with dysphagia) Psych/Mental Status: Mental status NL Medications Current Medications Medications Dose Ordered Sig/Edouard Route Start Time Stop Time Status Last Admin Dose Admin Ondansetron HCl 4 mg Q4HP PRN IV 04/16/25 04:45 Hold 04/17/25 18:42 4 MG Nitroglycerin 0.4 mg Q5MINP PRN SL 04/16/25 04:45 Meclizine HCl 25 mg Q8HR PO 04/16/25 06:00 05/03/25 06:28 25 MG Prochlorperazine Edisylate 10 mg Q4HPRN PRN IV 04/18/25 12:00 04/27/25 13:37 10 MG Pantoprazole Sodium 40 mg DAILY IV 04/19/25 10:00 05/03/25 09:10 40 MG Labetalol HCl 10 mg Q2HPRN PRN IV 04/19/25 17:45 04/22/25 10:28 10 MG Sodium Chloride 1,000 ml @ 80 mls/hr [id number] IV 04/20/25 00:00 05/03/25 02:06 80 MLS/HR Aspirin 325 mg DAILY NG 04/22/25 10:00 05/03/25 09:09 325 MG Enteral Nutritional Formula 1,000 ml 60ML/HR GT 04/22/25 10:45 05/03/25 01:49 1,000 ML Amlodipine Besylate 10 mg DAILY NG 04/23/25 10:00 05/03/25 09:10 10 MG Atorvastatin Calcium 40 mg HS NG 04/22/25 23:15 05/02/25 22:23 40 MG Clopidogrel Bisulfate 75 mg DAILY NG 04/23/25 10:00 05/03/25 09:09 75 MG Lorazepam 1 mg ONCE PRN IV 04/26/25 00:00 Lorazepam 1 mg HS PRN IV 04/29/25 10:30 04/30/25 00:11 1 MG Sennosides 8.6 mg [id number] PRN PO 05/01/25 14:00 Acetaminophen 650 mg Q6HP PRN NG 05/01/25 22:15 05/03/25 03:14 650 MG Laboratory Results Laboratory Tests 05/02/25 06:15 Urinalysis Test 04/17/25 16:38 Urine Color Yellow (Yellow) Urine Clarity Clear (Clear) Urine pH 6.0 (5.0-9.0) Urine Specific [place] 1.036 (1.001-1.035) Urine Protein Trace (Negative) H Urine Ketones 3+ (Negative) H Urine Blood Trace /uL (Negative) H Urine Nitrite Negative (Negative) Urine Bilirubin Negative (Negative) Urine Urobilinogen Normal mg/dL (Negative) Urine Leukocyte Esterase Negative /uL (Negative) Urine RBC 4 /hpf (0 - 4) Urine Microscopic WBC 3 /HPF (0-5) Urine Squamous Epithelial Cells Few /hpf (<5) Urine Bacteria None seen /hpf (None Seen) Urine Mucus Few (None Seen) Urine Glucose Normal mg/dL (Normal) Urine Test Negative (Negative) Microbiology Microbiology Date/Time Source Procedure Growth Status 04/20/25 06:40 Nose MRSA Screen - Final Complete Labs and/or images reviewed: Labs reviewed by me Assessment/Plan Assessment/Plan Acute ischemic stroke. MRI showed acute stroke 8 mm acute right posterolateral medullary infarct. New weakness on 04/19 Evolving new infarct Dizziness. Continuing current management. Continuing with tube feeding. Continuing swallow evaluation. If the patient pass swallow eval we will anticipate to start food. As right now continuing tube feeding. Physical therapy to get the patient out of bed and ambulate Continuing aspirin and statin Continuing hypertensive medication Swallow evaluation done, per speech therapist, the patient did not pass swallow evaluation. Continue TF, continue NPO Will dc ativan. Repeat swallow evaluation again in am Meclizine PRN for dizziness. This medical document was created using an electronic medical record system with M*M flurency direct computerized dictation system. Although this document has been carefully reviewed, there may still be some phonetic and typographical errors. These areas are purely typographical due to imperfections of the software programs, and do not reflect any compromise in the patient's medical care. Plan discussed with: Patient Date of Service: May 03, 2025 Billing Provider: PRICILA PEREIRA MD Common Visit Codes: [id number] INP/OBS CARE(HIGH) PRICILA PEREIRA MD May 03, 2025 11:58
--- NOTE | 2025-05-03 22:42 | DVHPN2 ---
Progress Note - Dictate Date Seen: May 03, 2025 Medical Necessity Reason Pt with a Central, PICC or Fol: No Subjective The patient is seen and examined at bedside. Still have left-sided weakness and on tube feeding. Patient was receiving tube feedings via the NG tube by nurse Patient had tried to work with physical therapy. Patient continues to complain of nausea Reports feeling better, denies vomiting. Vertigo Improving Failed swallow evaluation last week vital signs Vital Sign Date Time Temp Pulse Resp B/P (MAP) Pulse Ox O2 Delivery O2 Flow Rate FiO2 05/03/25 21:00 98.1 88 18 128/74 (92) 97 98.1 05/03/25 20:25 Room Air* 0 21 Total Intake and Output 05/02/25 05/02/25 05/03/25 15:00 23:00 07:00 Intake Total 220 ml 715 ml 0 ml Balance 220 ml 715 ml 0 ml medications Current Medications Medications Dose Ordered Sig/Edouard Route Start Time Stop Time Status Last Admin Dose Admin Ondansetron HCl 4 mg Q4HP PRN IV 04/16/25 04:45 Hold 04/17/25 18:42 4 MG Nitroglycerin 0.4 mg Q5MINP PRN SL 04/16/25 04:45 Meclizine HCl 25 mg Q8HR PO 04/16/25 06:00 05/03/25 21:19 25 MG Prochlorperazine Edisylate 10 mg Q4HPRN PRN IV 04/18/25 12:00 04/27/25 13:37 10 MG Pantoprazole Sodium 40 mg DAILY IV 04/19/25 10:00 05/03/25 09:10 40 MG Labetalol HCl 10 mg Q2HPRN PRN IV 04/19/25 17:45 04/22/25 10:28 10 MG Sodium Chloride 1,000 ml @ 80 mls/hr [id number] IV 04/20/25 00:00 05/03/25 14:37 80 MLS/HR Aspirin 325 mg DAILY NG 04/22/25 10:00 05/03/25 09:09 325 MG Enteral Nutritional Formula 1,000 ml 60ML/HR GT 04/22/25 10:45 05/03/25 21:52 1,000 ML Amlodipine Besylate 10 mg DAILY NG 04/23/25 10:00 05/03/25 09:10 10 MG Atorvastatin Calcium 40 mg HS NG 04/22/25 23:15 05/03/25 21:19 40 MG Clopidogrel Bisulfate 75 mg DAILY NG 04/23/25 10:00 05/03/25 09:09 75 MG Lorazepam 1 mg ONCE PRN IV 04/26/25 00:00 Lorazepam 1 mg HS PRN IV 04/29/25 10:30 04/30/25 00:11 1 MG Sennosides 8.6 mg [id number] PRN PO 05/01/25 14:00 Acetaminophen 650 mg Q6HP PRN NG 05/01/25 22:15 05/03/25 19:47 650 MG objective General: Well-built, afebrile, palor, mucosae are moist Cardiovascular: Regular S1 and S2. No murmurs, gallops or rubs. No JVD elevation. No pedal edema Respiratory: Normal B/L air entry on room air. Clear lung sounds on auscultation Abdomen: Soft, nontender, nondistended, normoactive bowel sounds, no rebound tenderness, no organomegaly, no masses Genitourinary: Deferred Psych/Mental Status: A/Ox3 laboratory and microbiology Laboratory Tests 05/02/25 06:15 Test 05/02/25 06:15 Range/Units Serum Glucose 104 74-106 mg/dL Problems(with codes): (1) Stroke (2) Migraine (3) Intractable vomiting (4) Vertigo Prognosis Plan Continue tube feedings There is plan for possible repeat swallow eval tomorrow or later this week Continue supportive care and PT and tube feedings Dietary Evaluation Review Comments: 1. Advance to Soft, texture as tolerated Cardiac diet once passoing MATERIALS HANDLER eval 2. Consider Tube feeding Jevity @50ml/hr providing 67g Protein 1440kcal if serum glucose remain WNL and PO feeding not medically feasible. Expected Outcomes/Goals: resoloved dysphagia Plan discussed with: Patient, Other (Nurse) SOLEDAD MCGOWAN MD May 03, 2025 22:42
[2025-05-04] VITALS (8 sets, daily range): BP systolic 115–131; BP diastolic 68–81; PULSE 79–96; RESP 16–18; TEMP 96.9–98; O2SAT 97–99
[2025-05-04] MEDS: ONDANSETRON HCL 4 MG/2 ML VIAL IV ONE (08:05)
--- NOTE | 2025-05-04 14:16 | DVHPN2 ---
Subjective The patient is seen and examined at bedside. Still have left-sided weakness and on tube feeding. Still requiring max assist. Patient had tried to work with physical therapy. Complains of dizziness. Reviewed: Care Plan, H&P, Labs, Medications, Previous Orders, Radiology Changes from previous H/P or p: No Changes Eyes: No Pain, No Vision change, No Conjunctivae inflammation, No Eyelid inflammation, No Other, No Redness ENT: No Ear pain, No Ear discharge, No Nose pain, No Nose discharge, No Nose congestion, No Mouth pain, No Mouth swelling, No Throat pain, No Throat swelling; Other (Tinnitus bilateral ear) Cardiovascular: No Chest Pain, No Palpitations, No Orthopnea, No Paroxysmal Noc. Dyspnea, No Edema, No Lt Headedness, No Other Respiratory: No Cough, No Dry, No Shortness of breath, No SOB with excertion, No Wheezing, No Hemoptysis, No Pleuritic Pain, No Sputum, No Other Gastrointestinal: Nausea, Vomiting; No Abdominal Pain, No Diarrhea, No Constipation, No Melena, No Hematochezia, No Other Genitourinary: No Dysuria, No Frequency, No Incontinence, No Hematuria, No Retention, No Other Musculoskeletal: No other, No neck pain, No shoulder pain, No arm pain, No back pain, No hand pain, No leg pain, No foot pain Skin: No Rash, No Lesions, No Jaundice, No Bruising, No Other Objective Vitals Vital Signs Date Time Temp Pulse Resp B/P (MAP) Pulse Ox O2 Delivery O2 Flow Rate FiO2 05/04/25 12:58 97.9 89 17 119/68 (85) 97 97.9 05/03/25 20:25 Room Air* 0 21 Intake/Output Intake and Output 05/04/25 07:00 Intake Total 1720 ml Balance 1720 ml Intake Oral 0 ml IV Total 880 ml Tube Feeding 720 ml Other 120 ml # Voids 13 # Bowel Movements 1 General Appearance: Alert, Oriented X3, Cooperative HEENT: Atraumatic, PERRLA, EOMI, Mucous membr. moist/pink Neck: Supple Lungs: Clear to auscultation Cardiovascular: Regular rate, Normal S1, Normal S2 Abdomen: Normal bowel sounds, Soft, No tenderness Musculoskeletal: Other Neuro: Other (Left-sided weakness with dysphagia) Psych/Mental Status: Mental status NL Medications Current Medications Medications Dose Ordered Sig/Edouard Route Start Time Stop Time Status Last Admin Dose Admin Ondansetron HCl 4 mg Q4HP PRN IV 04/16/25 04:45 Hold 04/17/25 18:42 4 MG Nitroglycerin 0.4 mg Q5MINP PRN SL 04/16/25 04:45 Meclizine HCl 25 mg Q8HR PO 04/16/25 06:00 05/04/25 05:41 25 MG Prochlorperazine Edisylate 10 mg Q4HPRN PRN IV 04/18/25 12:00 04/27/25 13:37 10 MG Pantoprazole Sodium 40 mg DAILY IV 04/19/25 10:00 05/04/25 09:33 40 MG Labetalol HCl 10 mg Q2HPRN PRN IV 04/19/25 17:45 04/22/25 10:28 10 MG Sodium Chloride 1,000 ml @ 80 mls/hr [id number] IV 04/20/25 00:00 05/04/25 01:30 80 MLS/HR Aspirin 325 mg DAILY NG 04/22/25 10:00 05/04/25 09:34 325 MG Enteral Nutritional Formula 1,000 ml 60ML/HR GT 04/22/25 10:45 05/03/25 21:52 1,000 ML Amlodipine Besylate 10 mg DAILY NG 04/23/25 10:00 05/04/25 09:34 10 MG Atorvastatin Calcium 40 mg HS NG 04/22/25 23:15 05/03/25 21:19 40 MG Clopidogrel Bisulfate 75 mg DAILY NG 04/23/25 10:00 05/04/25 09:34 75 MG Lorazepam 1 mg ONCE PRN IV 04/26/25 00:00 Lorazepam 1 mg HS PRN IV 04/29/25 10:30 04/30/25 00:11 1 MG Sennosides 8.6 mg [id number] PRN PO 05/01/25 14:00 Acetaminophen 650 mg Q6HP PRN NG 05/01/25 22:15 05/04/25 09:55 650 MG Laboratory Results Laboratory Tests 05/02/25 06:15 Urinalysis Test 04/17/25 16:38 Urine Color Yellow (Yellow) Urine Clarity Clear (Clear) Urine pH 6.0 (5.0-9.0) Urine Specific [place] 1.036 (1.001-1.035) Urine Protein Trace (Negative) H Urine Ketones 3+ (Negative) H Urine Blood Trace /uL (Negative) H Urine Nitrite Negative (Negative) Urine Bilirubin Negative (Negative) Urine Urobilinogen Normal mg/dL (Negative) Urine Leukocyte Esterase Negative /uL (Negative) Urine RBC 4 /hpf (0 - 4) Urine Microscopic WBC 3 /HPF (0-5) Urine Squamous Epithelial Cells Few /hpf (<5) Urine Bacteria None seen /hpf (None Seen) Urine Mucus Few (None Seen) Urine Glucose Normal mg/dL (Normal) Urine Test Negative (Negative) Microbiology Microbiology Date/Time Source Procedure Growth Status 04/20/25 06:40 Nose MRSA Screen - Final Complete Labs and/or images reviewed: Labs reviewed by me Assessment/Plan Assessment/Plan Acute ischemic stroke. MRI showed acute stroke 8 mm acute right posterolateral medullary infarct. New weakness on 04/19 Evolving new infarct Dizziness. Continuing current management. Continuing with tube feeding. Continuing swallow evaluation. If the patient pass swallow eval we will anticipate to start food. As right now continuing tube feeding. Physical therapy to get the patient out of bed and ambulate Continuing aspirin and statin Continuing hypertensive medication Swallow evaluation done, per speech therapist, the patient did not pass swallow evaluation. Continue TF, continue NPO Will dc ativan. Repeat swallow evaluation again. Still waiting for speech therapist. Meclizine PRN for dizziness. CT head, since patient continue to have dizziness . This medical document was created using an electronic medical record system with M*M flurency direct computerized dictation system. Although this document has been carefully reviewed, there may still be some phonetic and typographical errors. These areas are purely typographical due to imperfections of the software programs, and do not reflect any compromise in the patient's medical care. Plan discussed with: Patient Date of Service: May 04, 2025 Billing Provider: PRICILA PEREIRA MD Common Visit Codes: [id number] INP/OBS CARE(HIGH) PRICILA PEREIRA MD May 04, 2025 14:16
--- NOTE | 2025-05-04 15:42 | DVH ---
EXAM: CT HEAD WITHOUT CONTRAST INDICATION: Dizziness TECHNIQUE:: CT images of the head were obtained without administration of IV contrast. CT scans at this facility use dose modulation, iterative reconstruction, and/or weight based dosing when appropriate to reduce radiation dose to as low as reasonably achievable. COMPARISON: MRI BRAIN HEAD WO CONTRAST on DOS: 04/26/25 FINDINGS: PARENCHYMA: No acute hemorrhage. There is no mass effect, midline shift, or herniation. There is preservation of the carrasco white differentiation. VENTRICLES: No hydrocephalus. EXTRA-AXIAL SPACES: No extra-axial fluid collections. OTHER: The bony structures are intact. Visualized portions of the paranasal sinuses and mastoid air cells are clear. IMPRESSION: 1. No CT evidence of an acute intracranial abnormality.
--- NOTE | 2025-05-04 18:09 | DVHPN2 ---
Progress Note - Dictate Date Seen: May 04, 2025 Medical Necessity Reason Pt with a Central, PICC or Fol: No Subjective The patient is seen and examined at bedside. Still have left-sided weakness Patient received tube feedings via the NG tube by nurse Patient had tried to work with physical therapy. Patient continues to complain of nausea Reports feeling better, denies vomiting. Vertigo Improving Failed swallow evaluation last week vital signs Vital Sign Date Time Temp Pulse Resp B/P (MAP) Pulse Ox O2 Delivery O2 Flow Rate FiO2 05/04/25 17:01 97.7 89 16 131/75 (93) 99 97.7 05/04/25 08:00 Room Air* 0 21 Total Intake and Output 05/03/25 05/03/25 05/04/25 15:00 23:00 07:00 Intake Total 680 ml 1040 ml Balance 680 ml 1040 ml medications Current Medications Medications Dose Ordered Sig/Edouard Route Start Time Stop Time Status Last Admin Dose Admin Ondansetron HCl 4 mg Q4HP PRN IV 04/16/25 04:45 Hold 04/17/25 18:42 4 MG Nitroglycerin 0.4 mg Q5MINP PRN SL 04/16/25 04:45 Meclizine HCl 25 mg Q8HR PO 04/16/25 06:00 05/04/25 14:59 25 MG Prochlorperazine Edisylate 10 mg Q4HPRN PRN IV 04/18/25 12:00 04/27/25 13:37 10 MG Pantoprazole Sodium 40 mg DAILY IV 04/19/25 10:00 05/04/25 09:33 40 MG Labetalol HCl 10 mg Q2HPRN PRN IV 04/19/25 17:45 04/22/25 10:28 10 MG Sodium Chloride 1,000 ml @ 80 mls/hr [id number] IV 04/20/25 00:00 05/04/25 13:30 80 MLS/HR Aspirin 325 mg DAILY NG 04/22/25 10:00 05/04/25 09:34 325 MG Enteral Nutritional Formula 1,000 ml 60ML/HR GT 04/22/25 10:45 05/03/25 21:52 1,000 ML Amlodipine Besylate 10 mg DAILY NG 04/23/25 10:00 05/04/25 09:34 10 MG Atorvastatin Calcium 40 mg HS NG 04/22/25 23:15 05/03/25 21:19 40 MG Clopidogrel Bisulfate 75 mg DAILY NG 04/23/25 10:00 05/04/25 09:34 75 MG Lorazepam 1 mg ONCE PRN IV 04/26/25 00:00 Lorazepam 1 mg HS PRN IV 04/29/25 10:30 04/30/25 00:11 1 MG Sennosides 8.6 mg [id number] PRN PO 05/01/25 14:00 Acetaminophen 650 mg Q6HP PRN NG 05/01/25 22:15 05/04/25 09:55 650 MG objective General: Well-built, afebrile, palor, mucosae are moist Cardiovascular: Regular S1 and S2. No murmurs, gallops or rubs. No JVD elevation. No pedal edema Respiratory: Normal B/L air entry on room air. Clear lung sounds on auscultation Abdomen: Soft, nontender, nondistended, normoactive bowel sounds, no rebound tenderness, no organomegaly, no masses Genitourinary: Deferred Psych/Mental Status: A/Ox3 laboratory and microbiology Laboratory Tests 05/02/25 06:15 Test 05/02/25 06:15 Range/Units Serum Glucose 104 74-106 mg/dL Problems(with codes): (1) Stroke (2) Migraine (3) Intractable vomiting (4) Vertigo Prognosis Plan Continue tube feedings There is plan for possible repeat swallow eval tomorrow or later this week Continue supportive care and PT and tube feedings Dietary Evaluation Review Comments: 1. Advance to Soft, texture as tolerated Cardiac diet once passoing TRACK LAYER eval 2. Consider Tube feeding Jevity @50ml/hr providing 67g Protein 1440kcal if serum glucose remain WNL and PO feeding not medically feasible. Expected Outcomes/Goals: resoloved dysphagia Plan discussed with: Patient SOLEDAD MCGOWAN MD May 04, 2025 18:09
[2025-05-05] VITALS (8 sets, daily range): BP systolic 116–127; BP diastolic 69–83; PULSE 81–91; RESP 16–18; TEMP 97.1–98.3; O2SAT 96–100
[2025-05-05] MEDS: Jevity 1.2 Cal/Fiber 1 Liter GT SCH (15:15)
--- NOTE | 2025-05-05 18:56 | DVHPN2 ---
Subjective The patient is seen and examined at bedside. Still have left-sided weakness and on tube feeding. Still requiring max assist. Patient had tried to work with physical therapy. Complains of dizziness. Reviewed: Care Plan, H&P, Labs, Medications, Previous Orders, Radiology Changes from previous H/P or p: No Changes Eyes: No Pain, No Vision change, No Conjunctivae inflammation, No Eyelid inflammation, No Other, No Redness ENT: No Ear pain, No Ear discharge, No Nose pain, No Nose discharge, No Nose congestion, No Mouth pain, No Mouth swelling, No Throat pain, No Throat swelling; Other (Tinnitus bilateral ear) Cardiovascular: No Chest Pain, No Palpitations, No Orthopnea, No Paroxysmal Noc. Dyspnea, No Edema, No Lt Headedness, No Other Respiratory: No Cough, No Dry, No Shortness of breath, No SOB with excertion, No Wheezing, No Hemoptysis, No Pleuritic Pain, No Sputum, No Other Gastrointestinal: Nausea, Vomiting; No Abdominal Pain, No Diarrhea, No Constipation, No Melena, No Hematochezia, No Other Genitourinary: No Dysuria, No Frequency, No Incontinence, No Hematuria, No Retention, No Other Musculoskeletal: No other, No neck pain, No shoulder pain, No arm pain, No back pain, No hand pain, No leg pain, No foot pain Skin: No Rash, No Lesions, No Jaundice, No Bruising, No Other Objective Vitals Vital Signs Date Time Temp Pulse Resp B/P (MAP) Pulse Ox O2 Delivery O2 Flow Rate FiO2 05/05/25 16:20 97.4 84 17 125/75 (92) 100 97.4 05/05/25 08:00 Room Air* 0 21 Intake/Output Intake and Output 05/05/25 07:00 Intake Total 0 ml Balance 0 ml Intake Oral 0 ml # Voids 17 # Bowel Movements 1 General Appearance: Alert, Oriented X3, Cooperative HEENT: Atraumatic, PERRLA, EOMI, Mucous membr. moist/pink Neck: Supple Lungs: Clear to auscultation Cardiovascular: Regular rate, Normal S1, Normal S2 Abdomen: Normal bowel sounds, Soft, No tenderness Musculoskeletal: Other Neuro: Other (Left-sided weakness with dysphagia) Psych/Mental Status: Mental status NL Medications Current Medications Medications Dose Ordered Sig/Edouard Route Start Time Stop Time Status Last Admin Dose Admin Ondansetron HCl 4 mg Q4HP PRN IV 04/16/25 04:45 Hold 04/17/25 18:42 4 MG Nitroglycerin 0.4 mg Q5MINP PRN SL 04/16/25 04:45 Meclizine HCl 25 mg Q8HR PO 04/16/25 06:00 05/05/25 15:07 25 MG Prochlorperazine Edisylate 10 mg Q4HPRN PRN IV 04/18/25 12:00 05/05/25 04:53 10 MG Pantoprazole Sodium 40 mg DAILY IV 04/19/25 10:00 05/05/25 09:54 40 MG Labetalol HCl 10 mg Q2HPRN PRN IV 04/19/25 17:45 04/22/25 10:28 10 MG Sodium Chloride 1,000 ml @ 80 mls/hr [id number] IV 04/20/25 00:00 05/05/25 11:50 80 MLS/HR Aspirin 325 mg DAILY NG 04/22/25 10:00 05/05/25 09:54 325 MG Amlodipine Besylate 10 mg DAILY NG 04/23/25 10:00 05/05/25 09:54 10 MG Atorvastatin Calcium 40 mg HS NG 04/22/25 23:15 05/04/25 21:05 40 MG Clopidogrel Bisulfate 75 mg DAILY NG 04/23/25 10:00 05/05/25 09:54 75 MG Lorazepam 1 mg ONCE PRN IV 04/26/25 00:00 Lorazepam 1 mg HS PRN IV 04/29/25 10:30 04/30/25 00:11 1 MG Sennosides 8.6 mg [id number] PRN PO 05/01/25 14:00 Acetaminophen 650 mg Q6HP PRN NG 05/01/25 22:15 05/05/25 01:22 650 MG Enteral Nutritional Formula 1,000 ml 50ML/HR GT 05/05/25 11:45 05/05/25 15:15 1,000 ML Laboratory Results Laboratory Tests 05/02/25 06:15 Urinalysis Test 04/17/25 16:38 Urine Color Yellow (Yellow) Urine Clarity Clear (Clear) Urine pH 6.0 (5.0-9.0) Urine Specific [place] 1.036 (1.001-1.035) Urine Protein Trace (Negative) H Urine Ketones 3+ (Negative) H Urine Blood Trace /uL (Negative) H Urine Nitrite Negative (Negative) Urine Bilirubin Negative (Negative) Urine Urobilinogen Normal mg/dL (Negative) Urine Leukocyte Esterase Negative /uL (Negative) Urine RBC 4 /hpf (0 - 4) Urine Microscopic WBC 3 /HPF (0-5) Urine Squamous Epithelial Cells Few /hpf (<5) Urine Bacteria None seen /hpf (None Seen) Urine Mucus Few (None Seen) Urine Glucose Normal mg/dL (Normal) Urine Test Negative (Negative) Microbiology Microbiology Date/Time Source Procedure Growth Status 04/20/25 06:40 Nose MRSA Screen - Final Complete Labs and/or images reviewed: Labs reviewed by me Assessment/Plan Assessment/Plan Acute ischemic stroke. MRI showed acute stroke 8 mm acute right posterolateral medullary infarct. New weakness on 04/19 Evolving new infarct Dizziness. Continuing current management. Continuing with tube feeding. Continuing swallow evaluation. If the patient pass swallow eval we will anticipate to start food. As right now continuing tube feeding. Physical therapy to get the patient out of bed and ambulate Continuing aspirin and statin Continuing hypertensive medication Swallow evaluation done, per speech therapist, the patient did not pass swallow evaluation. Continue TF, continue NPO Will dc ativan. Repeat swallow evaluation again. Still waiting for speech therapist. Meclizine PRN for dizziness. CT head, since patient continue to have dizziness show no acute change. 05/05 Waiting for swallow eval. Continue TF, Jevity, goal: 50ml/hour. Continue PT This medical document was created using an electronic medical record system with [employer] direct computerized dictation system. Although this document has been carefully reviewed, there may still be some phonetic and typographical errors. These areas are purely typographical due to imperfections of the software programs, and do not reflect any compromise in the patient's medical care. Plan discussed with: Patient My Orders Orders - PRICILA PEREIRA MD Procedure Category Date Status Time Complete Blood Count LAB 05/06/25 Verified 04:00 Basic Metabolic Panel LAB 05/06/25 Verified 04:00 Nutritional PHA 05/05/25 In Process Supplements (Jevity 11:45 Date of Service: May 05, 2025 Billing Provider: PRICILA PEREIRA MD Common Visit Codes: [id number] INP/OBS CARE(HIGH) PRICILA PEREIRA MD May 05, 2025 18:56
[2025-05-06] VITALS (8 sets, daily range): BP systolic 113–134; BP diastolic 72–83; PULSE 76–87; RESP 17–18; TEMP 97.7–98.1; O2SAT 96–98
[2025-05-06 07:17] LABS: Hematocrit 39.3 % (36.0-46.0); Hemoglobin 13.5 g/dL (12.2-16.2); Mean Corpuscular Hemoglobin 32.3 pg (28.0-32.0); Mean Corpuscular Volume 94.0 fL (80.0-100.0); Nucleated Red Blood Cells % 0.0 %
[2025-05-06 07:31] LABS: Calcium 9.4 mg/dL (8.7-10.4); Chloride 104 mmol/L (98-107); Potassium 3.7 mmol/L (3.5-5.1); Sodium 143 mmol/L (136-145)
[2025-05-06 07:32] LABS: Anion Gap 11 (5-15); Carbon Dioxide 28 mmol/L (20-31)
[2025-05-06 07:36] LABS: Glucose 104 mg/dL (74-106)
[2025-05-06 07:37] LABS: BUN/Creatinine Ratio 14.7 (10.0-20.0); Blood Urea Nitrogen 11 mg/dL (9-23)
--- NOTE | 2025-05-06 10:35 | DVHPN2 ---
Assessment/Plan Assessment/Plan progress note 54 F with HTN admitted for acute stroke, further found to have evolving stroke. not able to pass swallow, nutrition via NG. working with PT. insurance being barrier to discharge. 05/06 pending swallow eval repeat. c/w PT. c/w tube feeding physical exam aox3, cooperative s1 s2 rrr clear breath sounds abdomen soft nontender no le edema spinal tenderness equal sensation b/l le L weakness labs ekg imaging reviewed assessment and pln acute ischemic right posterolateral medullary infarct evolving stroke dizziness difficulty swallowing 2/2 CVA residual weakness hypertension c/w tube feeding swallow eval repeat might benefit from FEES PT OOBTC asa Lipitor resume antihtn diet TF dvt ppx lovenox full code Plan discussed with: Patient Date of Service: May 06, 2025 Billing Provider: MAURICIO GIBBONS MD Common Visit Codes: [id number] INP/OBS CARE(MOD) MAURICIO GIBBONS MD May 06, 2025 10:35
--- NOTE | 2025-05-06 18:51 | DVHPN2 ---
Progress Note - Dictate Date Seen: May 06, 2025 Medical Necessity Reason Pt with a Central, PICC or Fol: No Subjective The patient is seen and examined at bedside. Still have left-sided weakness Patient received tube feedings via the NG tube by nurse Patient had tried to work with physical therapy. Patient continues to complain of nausea Reports feeling better, denies vomiting. Vertigo Improving Failed swallow evaluation last week vital signs Vital Sign Date Time Temp Pulse Resp B/P (MAP) Pulse Ox O2 Delivery O2 Flow Rate FiO2 05/06/25 16:25 98.1 86 17 113/75 (88) 97 98.1 05/06/25 08:05 Room Air* 0 21 Total Intake and Output 05/05/25 05/05/25 05/06/25 15:00 23:00 07:00 Intake Total 1000 ml 0 ml Output Total 700 ml Balance 1000 ml -700 ml medications Current Medications Medications Dose Ordered Sig/Edouard Route Start Time Stop Time Status Last Admin Dose Admin Ondansetron HCl 4 mg Q4HP PRN IV 04/16/25 04:45 Hold 04/17/25 18:42 4 MG Nitroglycerin 0.4 mg Q5MINP PRN SL 04/16/25 04:45 Meclizine HCl 25 mg Q8HR PO 04/16/25 06:00 05/06/25 13:25 25 MG Prochlorperazine Edisylate 10 mg Q4HPRN PRN IV 04/18/25 12:00 05/05/25 04:53 10 MG Pantoprazole Sodium 40 mg DAILY IV 04/19/25 10:00 05/06/25 10:34 40 MG Labetalol HCl 10 mg Q2HPRN PRN IV 04/19/25 17:45 04/22/25 10:28 10 MG Sodium Chloride 1,000 ml @ 80 mls/hr [id number] IV 04/20/25 00:00 05/06/25 15:24 80 MLS/HR Aspirin 325 mg DAILY NG 04/22/25 10:00 05/06/25 10:35 325 MG Amlodipine Besylate 10 mg DAILY NG 04/23/25 10:00 05/06/25 10:34 10 MG Atorvastatin Calcium 40 mg HS NG 04/22/25 23:15 05/05/25 21:09 40 MG Clopidogrel Bisulfate 75 mg DAILY NG 04/23/25 10:00 05/06/25 10:34 75 MG Lorazepam 1 mg ONCE PRN IV 04/26/25 00:00 Lorazepam 1 mg HS PRN IV 04/29/25 10:30 04/30/25 00:11 1 MG Sennosides 8.6 mg [id number] PRN PO 05/01/25 14:00 Acetaminophen 650 mg Q6HP PRN NG 05/01/25 22:15 05/06/25 04:22 650 MG Enteral Nutritional Formula 1,000 ml 50ML/HR GT 05/05/25 11:45 05/05/25 21:49 1,000 ML objective General: Well-built, afebrile, palor, mucosae are moist Cardiovascular: Regular S1 and S2. No murmurs, gallops or rubs. No JVD elevation. No pedal edema Respiratory: Normal B/L air entry on room air. Clear lung sounds on auscultation Abdomen: Soft, nontender, nondistended, normoactive bowel sounds, no rebound tenderness, no organomegaly, no masses Genitourinary: Deferred Psych/Mental Status: A/Ox3 laboratory and microbiology Laboratory Tests 05/06/25 05:12 Test 05/06/25 05:12 Range/Units Serum Glucose 104 74-106 mg/dL Problems(with codes): (1) Oropharyngeal dysphagia (2) Stroke (3) Migraine (4) Intractable vomiting (5) Vertigo Prognosis PLAN c/w tube feeding, repeat swallow eval, work with PT. Dietary Evaluation Review Comments: 1. 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 Consider Tube feeding Jevity @50ml/hr providing 67g Protein 1440kcal if serum glucose remain WNL and PO feeding not medically feasible. Expected Outcomes/Goals: resoloved dysphagia Plan discussed with: Patient SOLEDAD MCGOWAN MD May 06, 2025 18:51
[2025-05-07] VITALS (8 sets, daily range): BP systolic 119–143; BP diastolic 73–85; PULSE 79–86; RESP 16–18; TEMP 97.6–98.4; O2SAT 96–99
--- NOTE | 2025-05-07 14:59 | DVHPN2 ---
Reviewed: Care Plan, H&P, Labs, Medications, Previous Orders, Radiology Changes from previous H/P or p: No Changes General: Per HPI Eyes: No Pain, No Vision change, No Conjunctivae inflammation, No Eyelid inflammation, No Other, No Redness ENT: No Ear pain, No Ear discharge, No Nose pain, No Nose discharge, No Nose congestion, No Mouth pain, No Mouth swelling, No Throat pain, No Throat swelling; Other (Tinnitus bilateral ear) Cardiovascular: No Chest Pain, No Palpitations, No Orthopnea, No Paroxysmal Noc. Dyspnea, No Edema, No Lt Headedness, No Other Respiratory: No Cough, No Dry, No Shortness of breath, No SOB with excertion, No Wheezing, No Hemoptysis, No Pleuritic Pain, No Sputum, No Other Gastrointestinal: Nausea, Vomiting; No Abdominal Pain, No Diarrhea, No Constipation, No Melena, No Hematochezia, No Other Genitourinary: No Dysuria, No Frequency, No Incontinence, No Hematuria, No Retention, No Other Musculoskeletal: No other, No neck pain, No shoulder pain, No arm pain, No back pain, No hand pain, No leg pain, No foot pain Skin: No Rash, No Lesions, No Jaundice, No Bruising, No Other Objective Vitals Vital Signs Date Time Temp Pulse Resp B/P (MAP) Pulse Ox O2 Delivery O2 Flow Rate FiO2 05/07/25 13:00 97.8 86 18 119/73 (88) 97 97.8 05/07/25 08:15 Room Air* 0 21 Intake/Output Intake and Output 05/07/25 07:00 Intake Total 0 ml Balance 0 ml Intake Oral 0 ml # Voids 13 # Bowel Movements 1 Exam aox3, cooperative s1 s2 rrr clear breath sounds abdomen soft nontender no le edema spinal tenderness equal sensation b/l le L weakness General Appearance: Alert, Oriented X3, Cooperative HEENT: Atraumatic, PERRLA, EOMI, Mucous membr. moist/pink Neck: Supple Lungs: Clear to auscultation Cardiovascular: Regular rate, Normal S1, Normal S2 Abdomen: Normal bowel sounds, Soft, No tenderness Musculoskeletal: Other Neuro: Other (Left-sided weakness with dysphagia) Psych/Mental Status: Mental status NL Medications Current Medications Medications Dose Ordered Sig/Edouard Route Start Time Stop Time Status Last Admin Dose Admin Ondansetron HCl 4 mg Q4HP PRN IV 12/6/25 04:45 Hold 04/17/25 18:42 4 MG Nitroglycerin 0.4 mg Q5MINP PRN SL 04/16/25 04:45 Meclizine HCl 25 mg Q8HR PO 04/16/25 06:00 05/07/25 13:25 25 MG Prochlorperazine Edisylate 10 mg Q4HPRN PRN IV 04/18/25 12:00 05/05/25 04:53 10 MG Pantoprazole Sodium 40 mg DAILY IV 04/19/25 10:00 05/07/25 08:45 40 MG Labetalol HCl 10 mg Q2HPRN PRN IV 04/19/25 17:45 04/22/25 10:28 10 MG Sodium Chloride 1,000 ml @ 80 mls/hr [id number] IV 04/20/25 00:00 05/06/25 20:24 80 MLS/HR Aspirin 325 mg DAILY NG 04/22/25 10:00 05/07/25 08:45 325 MG Amlodipine Besylate 10 mg DAILY NG 04/23/25 10:00 05/07/25 08:46 10 MG Atorvastatin Calcium 40 mg HS NG 04/22/25 23:15 05/06/25 22:27 40 MG Clopidogrel Bisulfate 75 mg DAILY NG 04/23/25 10:00 05/07/25 08:45 75 MG Lorazepam 1 mg ONCE PRN IV 04/26/25 00:00 Lorazepam 1 mg HS PRN IV 04/29/25 10:30 04/30/25 00:11 1 MG Sennosides 8.6 mg [id number] PRN PO 05/01/25 14:00 Acetaminophen 650 mg Q6HP PRN NG 05/01/25 22:15 05/06/25 22:48 650 MG Enteral Nutritional Formula 1,000 ml 50ML/HR GT 05/05/25 11:45 05/06/25 20:36 1,000 ML Laboratory Results Laboratory Tests 05/06/25 05:12 Urinalysis Test 04/17/25 16:38 Urine Color Yellow (Yellow) Urine Clarity Clear (Clear) Urine pH 6.0 (5.0-9.0) Urine Specific [place] 1.036 (1.001-1.035) Urine Protein Trace (Negative) H Urine Ketones 3+ (Negative) H Urine Blood Trace /uL (Negative) H Urine Nitrite Negative (Negative) Urine Bilirubin Negative (Negative) Urine Urobilinogen Normal mg/dL (Negative) Urine Leukocyte Esterase Negative /uL (Negative) Urine RBC 4 /hpf (0 - 4) Urine Microscopic WBC 3 /HPF (0-5) Urine Squamous Epithelial Cells Few /hpf (<5) Urine Bacteria None seen /hpf (None Seen) Urine Mucus Few (None Seen) Urine Glucose Normal mg/dL (Normal) Urine Test Negative (Negative) Microbiology Microbiology Date/Time Source Procedure Growth Status 04/20/25 06:40 Nose MRSA Screen - Final Complete Labs and/or images reviewed: Labs reviewed by me, Image(s) reviewed by me Assessment/Plan Assessment/Plan 54 F with HTN admitted for acute stroke, further found to have evolving stroke. not able to pass swallow, nutrition via NG. working with PT. insurance being barrier to discharge. 05/06 pending swallow eval repeat. c/w PT. c/w tube feeding 05/07, patient feels left hand numbness and right hand weakness. I do not see any facial asymmetries. Very soft-spoken low voice. She has NG tube with Jevity feeds. Does not feel hungry uric now. But does feel pain from the NG tube in the nose. We will try another nursing bedside swallow today. Still pending official re-evaluation by [employer] speech pathologist. Otherwise continue primary team's management. Patient is going for PT eval walk today. physical exam aox3, cooperative s1 s2 rrr clear breath sounds abdomen soft nontender no le edema spinal tenderness equal sensation b/l le L weakness labs ekg imaging reviewed assessment and pln acute ischemic right posterolateral medullary infarct evolving stroke dizziness difficulty swallowing 2/2 CVA residual weakness hypertension c/w tube feeding swallow eval repeat might benefit from FEES PT OOBTC asa Lipitor resume antihtn diet TF dvt ppx lovenox full code Plan discussed with: Patient Date of Service: May 07, 2025 Billing Provider: RICKI PITTMAN MD Common Visit Codes: [id number] INP/OBS CARE(HIGH) RICKI PITTMAN MD May 07, 2025 14:59
--- NOTE | 2025-05-07 21:14 | DVHPN2 ---
Progress Note - Dictate Date Seen: May 07, 2025 Medical Necessity Reason Pt with a Central, PICC or Fol: No Subjective Patient failed swallow evaluation vital signs Vital Sign Date Time Temp Pulse Resp B/P (MAP) Pulse Ox O2 Delivery O2 Flow Rate FiO2 05/07/25 20:54 98.4 82 18 128/83 (98) 99 98.4 05/07/25 08:15 Room Air* 0 21 Total Intake and Output 05/06/25 05/06/25 05/07/25 15:00 23:00 07:00 Intake Total 0 ml Balance 0 ml medications Current Medications Medications Dose Ordered Sig/Edouard Route Start Time Stop Time Status Last Admin Dose Admin Ondansetron HCl 4 mg Q4HP PRN IV 04/16/25 04:45 Hold 04/17/25 18:42 4 MG Nitroglycerin 0.4 mg Q5MINP PRN SL 04/16/25 04:45 Meclizine HCl 25 mg Q8HR PO 04/16/25 06:00 05/07/25 13:25 25 MG Prochlorperazine Edisylate 10 mg Q4HPRN PRN IV 04/18/25 12:00 05/05/25 04:53 10 MG Pantoprazole Sodium 40 mg DAILY IV 04/19/25 10:00 05/07/25 08:45 40 MG Labetalol HCl 10 mg Q2HPRN PRN IV 04/19/25 17:45 04/22/25 10:28 10 MG Sodium Chloride 1,000 ml @ 80 mls/hr [id number] IV 04/20/25 00:00 05/07/25 20:19 80 MLS/HR Aspirin 325 mg DAILY NG 04/22/25 10:00 05/07/25 08:45 325 MG Amlodipine Besylate 10 mg DAILY NG 04/23/25 10:00 05/07/25 08:46 10 MG Atorvastatin Calcium 40 mg HS NG 04/22/25 23:15 05/06/25 22:27 40 MG Clopidogrel Bisulfate 75 mg DAILY NG 04/23/25 10:00 05/07/25 08:45 75 MG Lorazepam 1 mg ONCE PRN IV 04/26/25 00:00 Lorazepam 1 mg HS PRN IV 04/29/25 10:30 04/30/25 00:11 1 MG Sennosides 8.6 mg [id number] PRN PO 05/01/25 14:00 Acetaminophen 650 mg Q6HP PRN NG 05/01/25 22:15 05/06/25 22:48 650 MG Enteral Nutritional Formula 1,000 ml 50ML/HR GT 05/05/25 11:45 05/07/25 17:43 1,000 ML objective General: Well-built, afebrile, palor, mucosae are moist Cardiovascular: Regular S1 and S2. No murmurs, gallops or rubs. No JVD elevation. No pedal edema Respiratory: Normal B/L air entry on room air. Clear lung sounds on auscultation Abdomen: Soft, nontender, nondistended, normoactive bowel sounds, no rebound tenderness, no organomegaly, no masses Genitourinary: Deferred Psych/Mental Status: A/Ox3 laboratory and microbiology Laboratory Tests 05/06/25 05:12 Test 05/06/25 05:12 Range/Units Serum Glucose 104 74-106 mg/dL Problems(with codes): (1) Oropharyngeal dysphagia (2) Stroke (3) Migraine (4) Intractable vomiting Prognosis Plan Continue oral pharyngeal exercises as recommended by speech therapist If symptoms of dysphagia did not improve patient will be evaluated for possible PEG tube placement next week Dietary Evaluation Review Comments: 1. 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 Consider Tube feeding Jevity @50ml/hr providing 67g Protein 1440kcal if serum glucose remain WNL and PO feeding not medically feasible. Expected Outcomes/Goals: resoloved dysphagia Plan discussed with: Patient, Other SOLEDAD MCGOWAN MD May 07, 2025 21:14
[2025-05-08] VITALS (8 sets, daily range): BP systolic 112–121; BP diastolic 59–78; PULSE 75–90; RESP 14–18; TEMP 97.7–98.4; O2SAT 94–97
--- NOTE | 2025-05-08 16:41 | DVHPN2 ---
Assessment/Plan Assessment/Plan progress note 54 F with HTN admitted for acute stroke, further found to have evolving stroke. not able to pass swallow, nutrition via NG. working with PT. insurance being barrier to discharge. 05/06 pending swallow eval repeat. c/w PT. c/w tube feeding 05/07, patient feels left hand numbness and right hand weakness. I do not see any facial asymmetries. Very soft-spoken low voice. She has NG tube with Jevity feeds. Does not feel hungry uric now. But does feel pain from the NG tube in the nose. We will try another nursing bedside swallow today. Still pending official re-evaluation by [employer] speech pathologist. Otherwise continue primary team's management. Patient is going for PT eval walk today. 05/08 still failing swallow, plan for peg if persists physical exam aox3, cooperative s1 s2 rrr clear breath sounds abdomen soft nontender no le edema spinal tenderness equal sensation b/l le L weakness labs ekg imaging reviewed assessment and pln acute ischemic right posterolateral medullary infarct evolving stroke dizziness difficulty swallowing 2/2 CVA residual weakness hypertension c/w tube feeding swallow eval repeat might benefit from FEES PT OOBTC asa Lipitor resume antihtn diet TF dvt ppx lovenox full code Plan discussed with: Patient Date of Service: May 08, 2025 Billing Provider: MAURICIO GIBBONS MD Common Visit Codes: [id number] INP/OBS CARE(HIGH) MAURICIO GIBBONS MD May 08, 2025 16:41
--- NOTE | 2025-05-08 16:57 | DVHPN2 ---
Progress Note - Dictate Date Seen: May 08, 2025 Medical Necessity Reason Pt with a Central, PICC or Fol: No Subjective No new complaints Patient did not pass swallow evaluation yesterday Continued NG tube feedings vital signs Vital Sign Date Time Temp Pulse Resp B/P (MAP) Pulse Ox O2 Delivery O2 Flow Rate FiO2 05/08/25 13:00 98.1 75 16 113/75 (88) 97 98.1 05/08/25 08:00 Room Air* 0 21 Total Intake and Output 05/07/25 05/07/25 05/08/25 15:00 23:00 07:00 Intake Total 0 ml 0 ml Balance 0 ml 0 ml medications Current Medications Medications Dose Ordered Sig/Edouard Route Start Time Stop Time Status Last Admin Dose Admin Ondansetron HCl 4 mg Q4HP PRN IV 04/16/25 04:45 Hold 04/17/25 18:42 4 MG Nitroglycerin 0.4 mg Q5MINP PRN SL 04/16/25 04:45 Meclizine HCl 25 mg Q8HR PO 04/16/25 06:00 05/08/25 14:29 25 MG Prochlorperazine Edisylate 10 mg Q4HPRN PRN IV 04/18/25 12:00 05/08/25 09:17 10 MG Pantoprazole Sodium 40 mg DAILY IV 04/19/25 10:00 05/08/25 09:00 40 MG Labetalol HCl 10 mg Q2HPRN PRN IV 04/19/25 17:45 04/22/25 10:28 10 MG Sodium Chloride 1,000 ml @ 80 mls/hr [id number] IV 04/20/25 00:00 05/08/25 09:02 80 MLS/HR Aspirin 325 mg DAILY NG 04/22/25 10:00 05/08/25 09:01 325 MG Amlodipine Besylate 10 mg DAILY NG 04/23/25 10:00 05/08/25 09:01 10 MG Atorvastatin Calcium 40 mg HS NG 04/22/25 23:15 05/07/25 21:15 40 MG Clopidogrel Bisulfate 75 mg DAILY NG 04/23/25 10:00 05/08/25 09:02 75 MG Lorazepam 1 mg ONCE PRN IV 04/26/25 00:00 Lorazepam 1 mg HS PRN IV 04/29/25 10:30 04/30/25 00:11 1 MG Sennosides 8.6 mg [id number] PRN PO 05/01/25 14:00 Acetaminophen 650 mg Q6HP PRN NG 05/01/25 22:15 05/08/25 09:00 650 MG Enteral Nutritional Formula 1,000 ml 50ML/HR GT 05/05/25 11:45 05/08/25 14:29 1,000 ML objective General: Well-built, afebrile, palor, mucosae are moist Cardiovascular: Regular S1 and S2. No murmurs, gallops or rubs. No JVD elevation. No pedal edema Respiratory: Normal B/L air entry on room air. Clear lung sounds on auscultation Abdomen: Soft, nontender, nondistended, normoactive bowel sounds, no rebound tenderness, no organomegaly, no masses Genitourinary: Deferred Psych/Mental Status: A/Ox3 laboratory and microbiology Laboratory Tests 05/06/25 05:12 Test 05/06/25 05:12 Range/Units Serum Glucose 104 74-106 mg/dL Problems(with codes): (1) Oropharyngeal dysphagia (2) Stroke (3) Migraine (4) Intractable vomiting (5) Vertigo Prognosis Plan Continue oral pharyngeal exercises as recommended by speech therapist If symptoms of dysphagia did not improve patient will be evaluated for possible PEG tube placement later next week Dietary Evaluation Review Comments: 1. 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 Consider Tube feeding Jevity @50ml/hr providing 67g Protein 1440kcal if serum glucose remain WNL and PO feeding not medically feasible. Expected Outcomes/Goals: resoloved dysphagia Plan discussed with: Patient SOLEDAD MCGOWAN MD May 08, 2025 16:57
[2025-05-09] VITALS (8 sets, daily range): BP systolic 107–142; BP diastolic 70–93; PULSE 74–103; RESP 16–18; TEMP 97.8–98.4; O2SAT 97–100
--- NOTE | 2025-05-09 15:31 | DVHPN2 ---
Assessment/Plan Assessment/Plan progress note 54 F with HTN admitted for acute stroke, further found to have evolving stroke. not able to pass swallow, nutrition via NG. working with PT. insurance being barrier to discharge. 05/06 pending swallow eval repeat. c/w PT. c/w tube feeding 05/07, patient feels left hand numbness and right hand weakness. I do not see any facial asymmetries. Very soft-spoken low voice. She has NG tube with Jevity feeds. Does not feel hungry uric now. But does feel pain from the NG tube in the nose. We will try another nursing bedside swallow today. Still pending official re-evaluation by MACHINE PULLER OVER speech pathologist. Otherwise continue primary team's management. Patient is going for PT eval walk today. 05/08 still failing swallow, plan for peg if persists 05/09 able to swallow thickened liquid on bedside swallow. pending electrocardiograph operator. ng tube cloged anyway so removed. working with pt physical exam aox3, cooperative s1 s2 rrr clear breath sounds abdomen soft nontender no le edema spinal tenderness equal sensation b/l le L weakness labs ekg imaging reviewed assessment and pln acute ischemic right posterolateral medullary infarct evolving stroke dizziness difficulty swallowing 2/2 CVA residual weakness hypertension c/w tube feeding swallow eval repeat might benefit from FEES PT OOBTC asa Lipitor resume antihtn diet full liq thickened dvt ppx lovenox full code Plan discussed with: Patient My Orders Orders - MAURICIO GIBBONS MD Procedure Category Date Status Time * Swallow Request ST 05/09/25 Transmitted 10:51 Full Liq Diet DIET 05/09/25 Transmitted Lunch Date of Service: May 09, 2025 Billing Provider: MAURICIO GIBBONS MD Common Visit Codes: [id number] INP/OBS CARE(HIGH) MAURICIO GIBBONS MD May 09, 2025 15:31
[2025-05-09] MEDS: ATORVASTATIN 20 MG TAB PO SCH (21:56)
[2025-05-09] MEDS: ACETAMINOPHEN 650 mg PER 20.3 mL UD PO PRN (21:57)
--- NOTE | 2025-05-09 23:24 | DVHPN2 ---
Progress Note - Dictate Date Seen: May 09, 2025 Medical Necessity Reason Pt with a Central, PICC or Fol: No Subjective Patient passed swallow evaluation today vital signs Vital Sign Date Time Temp Pulse Resp B/P (MAP) Pulse Ox O2 Delivery O2 Flow Rate FiO2 05/09/25 21:00 98.3 82 18 142/93 (109) 98 98.3 05/09/25 08:00 Room Air* 0 21 Total Intake and Output 05/08/25 05/08/25 05/09/25 15:00 23:00 07:00 Intake Total 1000 ml 0 ml Balance 1000 ml 0 ml medications Current Medications Medications Dose Ordered Sig/[place]ard Route Start Time Stop Time Status Last Admin Dose Admin Ondansetron HCl 4 mg Q4HP PRN IV 04/16/25 04:45 Hold 04/17/25 18:42 4 MG Nitroglycerin 0.4 mg Q5MINP PRN SL 04/16/25 04:45 Meclizine HCl 25 mg Q8HR PO 04/16/25 06:00 05/09/25 21:56 25 MG Prochlorperazine Edisylate 10 mg Q4HPRN PRN IV 04/18/25 12:00 05/08/25 09:17 10 MG Pantoprazole Sodium 40 mg DAILY IV 04/19/25 10:00 05/09/25 09:45 40 MG Labetalol HCl 10 mg Q2HPRN PRN IV 04/19/25 17:45 04/22/25 10:28 10 MG Sodium Chloride 1,000 ml @ 80 mls/hr [id number] IV 04/20/25 00:00 05/08/25 21:47 80 MLS/HR Lorazepam 1 mg ONCE PRN IV 04/26/25 00:00 Lorazepam 1 mg HS PRN IV 04/29/25 10:30 04/30/25 00:11 1 MG Sennosides 8.6 mg [id number] PRN PO 05/01/25 14:00 Amlodipine Besylate 10 mg DAILY PO 05/10/25 10:00 Aspirin 325 mg DAILY PO 05/10/25 10:00 Atorvastatin Calcium 40 mg HS PO 05/09/25 22:00 05/09/25 21:56 40 MG Acetaminophen 650 mg Q6HP PRN PO 05/09/25 12:30 05/09/25 21:57 650 MG Clopidogrel Bisulfate 75 mg DAILY PO 05/10/25 10:00 objective General: Well-built, afebrile, palor, mucosae are moist Cardiovascular: Regular S1 and S2. No murmurs, gallops or rubs. No JVD elevation. No pedal edema Respiratory: Normal B/L air entry on room air. Clear lung sounds on auscultation Abdomen: Soft, nontender, nondistended, normoactive bowel sounds, no rebound tenderness, no organomegaly, no masses Genitourinary: Deferred Psych/Mental Status: A/Ox3 laboratory and microbiology Laboratory Tests 05/06/25 05:12 Test 05/06/25 05:12 Range/Units Serum Glucose 104 74-106 mg/dL Problems(with codes): (1) Oropharyngeal dysphagia (2) Stroke (3) Migraine (4) Intractable vomiting Prognosis Plan Full liquid diet to pureed diet Thickened liquids Discontinue NG tube Physical therapy and out of bed to chair Dietary Evaluation Review Comments: 1. Advance to Soft, texture as tolerated Cardiac diet once passoing FIBER TECHNOLOGIST eval 2. Consider Tube feeding Jevity @50ml/hr providing 67g Protein 1440kcal if serum glucose remain WNL and PO feeding not medically feasible. Expected Outcomes/Goals: resoloved dysphagia Plan discussed with: Patient SOLEDAD MCGOWAN MD May 09, 2025 23:24
[2025-05-10 05:00] VITALS: BP 131/80; PULSE 80; RESP 16; TEMP 98; O2SAT 98
[2025-05-10 07:26] LABS: Hematocrit 41.8 % (36.0-46.0); Hemoglobin 13.8 g/dL (12.2-16.2); Mean Corpuscular Hemoglobin 31.4 pg (28.0-32.0); Mean Corpuscular Volume 94.9 fL (80.0-100.0); Nucleated Red Blood Cells % 0.1 %
[2025-05-10 07:43] LABS: Anion Gap 11 (5-15); Carbon Dioxide 27 mmol/L (20-31); Chloride 104 mmol/L (98-107); Potassium 4.1 mmol/L (3.5-5.1); Sodium 142 mmol/L (136-145)
[2025-05-10 07:44] LABS: Calcium 9.4 mg/dL (8.7-10.4)
[2025-05-10 07:49] LABS: BUN/Creatinine Ratio 10.8 (10.0-20.0); Blood Urea Nitrogen 8 mg/dL (9-23); Glucose 62 mg/dL (74-106); Magnesium 2.2 mg/dL (1.6-2.6)
[2025-05-10 08:00] VITALS: PULSE 88; RESP 20; O2SAT 97
[2025-05-10 09:00] VITALS: BP 131/85; PULSE 88; RESP 20; TEMP 98.1; O2SAT 97
[2025-05-10] MEDS ORDERED: MECL1TAB42 PO (09:54)
[2025-05-10] MEDS ORDERED: SENN-105 PO (09:54)
[2025-05-10] MEDS ORDERED: CLOP75TA28 PO (09:54)
[2025-05-10] MEDS ORDERED: ASPI81TA28 PO (09:54)
[2025-05-10] MEDS ORDERED: ATOR40TA52 PO (09:54)
[2025-05-10] MEDS ORDERED: AMLO1TAB23 PO (09:54)
[2025-05-10] MEDS: CLOPIDOGREL BISULFATE 75 MG TAB PO SCH (10:14)
[2025-05-10 15:13] VITALS: BP 134/74; PULSE 74; RESP 18; TEMP 98; O2SAT 98
--- NOTE | 2025-05-10 15:19 | DVHDS2 ---
Discharge Summary Date of Admission Apr 16, 2025 at 04:36 Date of Discharge: May 10, 2025 Labs/Diagnostic Data: Laboratory Results Test 05/10/25 05:30 04/30/25 05:14 04/29/25 10:05 04/19/25 16:59 White Blood Count 5.4 10^3/uL (4.4-10.8) Red Blood Count 4.41 10^6/uL (4.0-5.20) Hemoglobin 13.8 g/dL (12.2-16.2) Hematocrit 41.8 % (36.0-46.0) Mean Corpuscular Volume 94.9 fL (80.0-100.0) Mean Corpuscular Hemoglobin 31.4 pg (28.0-32.0) Mean Corpuscular Hemoglobin Concent 33.1 g/dL (32.0-36.0) Red Cell Distribution Width 13.5 % (11.8-14.3) Platelet Count 283 10^3/uL (140-450) Mean Platelet Volume 7.2 fL (6.9-10.8) Neutrophils (%) (Auto) 61.7 % (37.0-80.0) Lymphocytes (%) (Auto) 25.5 % (10.0-50.0) Monocytes (%) (Auto) 7.3 % (0.0-12.0) Eosinophils (%) (Auto) 5.3 % (0.0-7.0) Basophils (%) (Auto) 0.2 % (0.0-2.0) Neutrophils # (Auto) 3.4 10 ^3/uL (1.6-8.6) Lymphocytes # (Auto) 1.4 10 ^3/uL (0.4-5.4) Monocytes # (Auto) 0.4 10 ^3/uL (0-1.3) Eosinophils # (Auto) 0.3 10 ^3/uL (0-0.8) Basophils # (Auto) 0 10 ^3/uL (0-0.2) Nucleated Red Blood Cells 0.1 % Sodium Level 142 mmol/L (136-145) Potassium Level 4.1 mmol/L (3.5-5.1) Chloride Level 104 mmol/L (98-107) Carbon Dioxide Level 27 mmol/L (20-31) Anion Gap 11 (5-15) Blood Urea Nitrogen 8 mg/dL (9-23) Creatinine 0.74 mg/dL (0.550-1.02) Glomerular Filtration Rate Calc 97 mL/min (>90) BUN/Creatinine Ratio 10.8 (10.0-20.0) Serum Glucose 62 mg/dL (74-106) Calcium Level 9.4 mg/dL (8.7-10.4) Phosphorus Level 3.5 mg/dL (2.4-5.1) Magnesium Level 2.2 mg/dL (1.6-2.6) Total Bilirubin 0.4 mg/dL (0.2-1.0) Aspartate Amino Transferase (AST) 91 U/L (13-40) Alanine Aminotransferase (ALT) 139 U/L (7-40) Alkaline Phosphatase 145 U/L (46-116) Total Protein 6.2 g/dL (5.7-8.2) Albumin 3.5 g/dL (3.2-4.8) Hepatitis A IgM Antibody Negative Hepatitis B Surface Antigen Negative (Negative) Hepatitis B Core IgM Antibody Negative (Negative) Hepatitis C Antibody Negative (Negative) POC Glucose 78 mg/dl (70-106) Test 04/19/25 11:11 04/17/25 16:38 04/16/25 00:24 Erythrocyte Sedimentation Rate 11 mm/hr (0-20) Direct Bilirubin 0.3 mg/dL (<0.3) Free Thyroxine (T4) Calculated 1.33 ng/dL (0.89-1.76) Total Triiodothyronine (TT3) 0.87 ng/mL (0.60-1.81) Urine Color Yellow (Yellow) Urine Clarity Clear (Clear) Urine pH 6.0 (5.0-9.0) Urine Specific [place] 1.036 (1.001-1.035) Urine Protein Trace (Negative) Urine Ketones 3+ (Negative) Urine Blood Trace /uL (Negative) Urine Nitrite Negative (Negative) Urine Bilirubin Negative (Negative) Urine Urobilinogen Normal mg/dL (Negative) Urine Leukocyte Esterase Negative /uL (Negative) Urine RBC 4 /hpf (0 - 4) Urine Microscopic WBC 3 /HPF (0-5) Urine Squamous Epithelial Cells Few /hpf (<5) Urine Bacteria None seen /hpf (None Seen) Urine Mucus Few (None Seen) Urine Glucose Normal mg/dL (Normal) Urine Test Negative (Negative) Urine Opiates Screen Neg (NEGATIVE) Urine Fentanyl Screen Neg (NEGATIVE) Urine Barbiturates Screen Neg (NEGATIVE) Urine Phencyclidine Screen Neg (NEGATIVE) Urine Amphetamines Screen Neg (NEGATIVE) Urine Benzodiazepines Screen Neg (NEGATIVE) Urine Cocaine Screen Neg (NEGATIVE) Urine Cannabinoids Screen Neg (NEGATIVE) Hemoglobin A1c 5.0 % A1C (<5.7) Troponin I High Sensitivity < 3 ng/L (</=34) Triglycerides Level 69 mg/dL (< 150) Cholesterol Level 224 mg/dL (< 200) LDL Cholesterol 129 mg/dL (< 100) HDL Cholesterol 83 mg/dL (40-59) Vitamin B12 Level 472 pg/mL (211-911) Vitamin D 25-Hydroxy 35.5 ng/mL (30.0-100) Thyroid Stimulating Hormone (TSH) 0.10 uIU/mL (0.55-4.78) Hepatitis A Antibody Total Positive (Negative) Hepatitis B Surface Antibody Negative (Negative) Hepatitis B Core Total Antibody Negative (Negative) Other Laboratory Tests 05/10/25 05:30 Brief Hx & Hospital Course: 54 F with HTN admitted for acute stroke, further found to have evolving stroke. prolonged hospital stay, on presumptove medical not able to pass swallow, nutrition via NG. working with PT. insurance being barrier to discharge. 05/06 pending swallow eval repeat. c/w PT. c/w tube feeding 05/07, patient feels left hand numbness and right hand weakness. I do not see any facial asymmetries. Very soft-spoken low voice. She has NG tube with Jevity feeds. Does not feel hungry uric now. But does feel pain from the NG tube in the nose. We will try another nursing bedside swallow today. Still pending official re-evaluation by CUSTOMER ENERGY SPECIALIST speech pathologist. Otherwise continue primary team's management. Patient is going for PT eval walk today. 05/08 still failing swallow, plan for peg if persists 05/09 able to swallow thickened liquid on bedside swallow. pending fruit packer face and fill. ng tube cloged anyway so removed. working with pt 05/10 able to swallow, able to walk, autumn walker, mo home with meds sent to pharmacy Condition at Discharge: Stable Final Diagnosis/Problems List acute ischemic right posterolateral medullary infarct evolving stroke dizziness difficulty swallowing 2/2 CVA residual weakness hypertension Discharge Disposition: Home Discharge Instruct/Medications Diet: See Comment Diet comment: thick liq Activity: No Restrictions, As Tolerated Scheduled Amlodipine Besylate (Amlodipine Besylate), 1 TAB PO DAILY Aspirin (Aspirin Ec), 81 MG PO DAILY Atorvastatin Calcium (Atorvastatin Calcium), 1 TAB PO DAILY Clopidogrel Bisulfate (Plavix), 1 TAB PO DAILY Meclizine HCl (Meclizine 25), 25 MG PO Q8HR Scheduled PRN Senna (Senna), 8.6 MG PO DAILY PRN Discharge Statement: "Patient was advised to return to the ER or call 911 if any headaches, dizziness, shortness of breath, chest pain, abdominal pain, bleeding, fevers, or worsening of medical condition. Patient was counseled about treatment plan, medications, possible side effects, patientverbalized understanding. All questions were answered to the best of my ability. This discharge took greater then 30 minutes in planning, reviewing documentation, counseling the patient, and discussing with other team members." ASSESSMENT ASSESSMENT Assessment acute stroke htn emergency dysphagia Date of Service: May 10, 2025 Billing Provider: MAURICIO GIBBONS MD Common Visit Codes: 30026-PGM/OBS DISCH DAY >30min MAURICIO GIBBONS MD May 10, 2025 15:19
--- NOTE | 2025-05-10 20:07 | DVHPN2 ---
Progress Note - Dictate Date Seen: May 10, 2025 (Late entryPatient seen at 2:00 p.m.) Medical Necessity Reason Pt with a Central, PICC or Fol: No Subjective Patient seen at bedside, patient is cheerful She is tolerating a diet Patient did well with physical therapy Discharge planning is in progress vital signs Vital Sign Date Time Temp Pulse Resp B/P (MAP) Pulse Ox O2 Delivery O2 Flow Rate FiO2 05/10/25 15:13 98.0 74 18 98 05/10/25 10:13 134/74 05/10/25 08:00 Room Air* 0 21 Total Intake and Output 05/09/25 05/09/25 05/10/25 15:00 23:00 07:00 Intake Total 400 ml 400 ml Balance 400 ml 400 ml objective General: Well-built, afebrile, palor, mucosae are moist Cardiovascular: Regular S1 and S2. No murmurs, gallops or rubs. No JVD elevation. No pedal edema Respiratory: Normal B/L air entry on room air. Clear lung sounds on auscultation Abdomen: Soft, nontender, nondistended, normoactive bowel sounds, no rebound tenderness, no organomegaly, no masses Genitourinary: Deferred Psych/Mental Status: A/Ox3 laboratory and microbiology Laboratory Tests 05/10/25 05:30 Test 05/10/25 05:30 Range/Units Serum Glucose 62 L 74-106 mg/dL Problems(with codes): (1) Oropharyngeal dysphagia (2) Stroke (3) Migraine (4) Intractable vomiting Prognosis Plan Patient was given reassurance Discharge planning is in progress Outpatient follow up with GI Services for any recurrent symptoms or ongoing GI problems Dietary Evaluation Review Comments: 1. Advance to Soft, texture as tolerated Cardiac diet once passoing ASSISTANT TRACK AND FIELD COACH eval 2. Consider Tube feeding Jevity @50ml/hr providing 67g Protein 1440kcal if serum glucose remain WNL and PO feeding not medically feasible. Expected Outcomes/Goals: resoloved dysphagia Plan discussed with: Patient SOLEDAD MCGOWAN MD May 10, 2025 20:07
== END 2025-05-10 16:40 | disposition home or self-care (01) | DRG 45 ==
LOC: ER 19:32 → OVERFLOW 04-16 04:36 → TELE-EAST 04-16 12:46 → ICU CENTRL 04-20 06:12 → TELE-WESTW 04-22 14:25 → WEST WING 05-10 01:08
PROVIDERS: ADMIT Student in an Organized Health Care Education/Training Program; ATTEND Student in an Organized Health Care Education/Training Program
DX: I63.9 Cerebral infarction, unspecified (principal); G81.91 Hemiplegia, unspecified affecting right dominant side; I16.1 Hypertensive emergency; N18.4 Chronic kidney disease, stage 4 (severe); R13.10 Dysphagia, unspecified; G43.909 Migraine, unspecified, not intractable, without status migrainosus; R04.0 Epistaxis; H81.09 Meniere's disease, unspecified ear; I12.9 Hypertensive chronic kidney disease with stage 1 through stage 4 chronic kidney disease, or unspecified chronic kidney disease; R74.01 Elevation of levels of liver transaminase levels; Z79.899 Other long term (current) drug therapy; Z79.82 Long term (current) use of aspirin; Z82.49 Family history of ischemic heart disease and other diseases of the circulatory system
CPT/HCPCS: 36415; 70450; 70460; 70496; 70498; 70551; 71045; 76705; 80048; 80053; 80061; 80074; 80076; 80307; 81001; 81025; 82306; 82607; 82962; 83036; 83735; 84100; 84439; 84443; 84480; 84484; 85025; 85652; 86704; 86706; 86708; 86803; 87081; 87340; 92610; 93306; 97110; 97116; 97163; 97530; 99291; G0378; J0131; J1885; J2003; J2405; J2470; J3480; Q0162